=== PATIENT | male | born 1935 | race Caucasian/White ===

== ENCOUNTER → 2016-05-10 | Outpatient (CLI) | payer BC, OTHER ==
[~2016-05-10] MED LIST: ALPR0.5T72 PO; AMLO5TAB2 PO; ASP81TEC PO; ATEN25TA PO; ESCI20TA45 PO; GMFB600T PO; HYDR-3812 PO; METO25TA PO; NAPR500T3 PO; OMEP20TA7 PO; OXYB5TAB PO; PRD20T PO; TAMS0.4C98 PO; TRAZ-28 PO; VLS80C PO
--- OUTSIDE RECORDS SUMMARY | 2016-05-10 12:34 | XMS REPORT | Continuity of Care Document ---
Author Author [facility] Organization [facility] Address Unknown Phone Unavailable Care Team Providers Care Personnel Specialist Name Role Phone DAINA MYLES MD PCP Insurance Providers Payer Name Policy Number Subscriber Name Relationship [facility] [id number] Sanjiv Vicente 16 Self / Same As Patient Advance Directives Directive Response Recorded Date/Time Advance Directives Yes 11/11/15 6:35am Health Care Power of Lpn Cma Deyvi rangel 11/11/15 6:35am Organ Donor No [...] Type Severity Reaction Status Last Updated Penicillins ([id number]) Allergy Mild ITCHING Active 11/11/15 Aswdtqs-Dyw-Uak Reductase Inhibitors ([id number]) Allergy Unknown Active 01/22/11 Morphine Allergy Unknown Active 01/22/11 Immunizations No immunization records. Vital Signs Acute Vital Signs Vital Response Date/Time Temperature (Fahrenheit) 96.9 degrees F (97.6 - 99.5) 11/11/2015 10:10am Temperature (Calculated Celsius) 36.85304 degrees C (36.4 - 37.5) 11/11/2015 10:10am [...] 0.00 inches 11/11/2015 6:35am Height (Calculated Centimeters) 182.448314 cm 11/11/2015 6:35am Weight (Pounds) 163 pounds 11/11/2015 6:35am Weight (Ounces) 0.0 oz 11/11/2015 6:35am Weight (Calculated Grams) 33436.557 gm 11/11/2015 6:35am Weight (Calculated Kilograms) 73.940753 kilograms 11/11/2015 6:35am Calculated BMI 22.1 11/11/2015 6:35am Results No known relevant diagnostic tests, laboratory data and/or discharge summary. Procedures No known history of procedures. Encounters Encounter Location Arrival/Admit Date Discharge/Depart Date Attending Provider Departed [facility] 11/11/15 6:12am 10:20am HALINA DELUNA DPM Departed Clinic [facility] 11/03/15 5:37am 11/03/15 9: 26am HALINA DELUNA DPM Departed Clinic [facility] 10/28/15 7:41am 10/28/15 8: 55am CIARAN RUDD MD Departed Emergency Room [facility] 10/26/15 2:37pm 10/25 4:13pm RADHA GREEN MD
--- NOTE | 2016-05-10 14:02 | Diagnostic Imaging Report ---
EXAMINATION: 3 views of the right shoulder. INDICATION: Right shoulder pain. FINDINGS: There is no fracture, dislocation or radiopaque foreign body. There is a superior subluxation of the humeral head abutting the undersurface of the acromion with sclerotic changes compatible with chronicity. This is indicative of an underlying chronic high-grade rotator cuff tear. There is also uosw-tz-jtah appearance in the upper aspect of the glenohumeral joint compatible with degenerative changes. The acromioclavicular joint demonstrates mild degenerative changes and inferior osteophytes. 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 Dictated by: Dictated on workstation # [id number]
== END ==
LOC: RAD 12:31
PROVIDERS: ATTEND Family Medicine
DX: M25.511 Pain in right shoulder (principal)
CPT/HCPCS: 73030

== ENCOUNTER 2016-05-17 14:16 | Outpatient (RCR) | payer BC, OTHER ==
--- OUTSIDE RECORDS SUMMARY | 2016-03-30 14:29 | XMS REPORT | Continuity of Care Document ---
Author Author [facility] Organization [facility] Address Unknown Phone Unavailable Care Team Providers Care Wildlife Ecologist Name Role Phone DAINA MYLES MD PCP Insurance Providers Payer Name Policy Number Subscriber Name Relationship [facility] [id number] Sanjiv Vicente 16 Self / Same As Patient Advance Directives Directive Response Recorded Date/Time Advance Directives Yes 11/11/15 6:35am Health Care Power of Cryptographic Vulnerability Analyst Deyvi rangel 11/11/15 6:35am Organ Donor No 11/11/15 6:35am Resuscitation Status Full Code 11/11/15 6:35am Problems No problem information available. Medications Current Home Medications Medication Dose Units Route Directions Days/Qty Instructions Start Date Alprazolam 0.5 Mg 0.5 Mg Oral Twice A Day as needed for Anxiety 06/30 Aspirin 81 Mg 81 Mg Oral Bedtime 01/22/11 Hydrocodone/Acetaminophen 1 Each 1 Tab Oral Every 6 Hours as needed for Pain 10/26/15 Atenolol 25 Mg 25 Mg Oral Daily 11/03/15 Omeprazole 20 Mg 20 Mg Oral Twice A Day 11/03/15 Oxybutynin Chloride 5 Mg 5 Mg Oral Bedtime 11/03/15 Naproxen 500 Mg 500 Mg Oral Twice A Day 11/03/15 Trazodone Hcl 50 Mg 50 Mg Oral Bedtime 11/03/15 Escitalopram Oxalate 20 Mg 20 Mg Oral Bedtime 11/03/15 Tamsulosin Hcl 0.4 Mg 0.4 Mg Oral Bedtime 11/03/15 Past Home Medications Medication Directions Ordered Status Metoprolol Succinate (Toprol Xl) 25 Mg Tab.sr.24h, 25 Mg Oral Daily 01/22/11 Discontinued Valsartan 80 Mg Tablet, 80 Mg Oral Daily 01/23/11 Discontinued Gemfibrozil 600 Mg Tab, 600 Mg Oral Twice A Day 01/23/11 Discontinued Prednisone 20 Mg Tab, 20 Mg Oral Daily 10/26/15 Discontinued Social History Social History Problem Response Recorded Date/Time Alcohol Use Past History 11/11/2015 6:35am Recreational Drug Use No 11/11/2015 6:35am Recent Foreign Travel No 11/11/2015 6:35am Recent Infectious Disease Exposure No 11/11/2015 6:35am Smoking Status Never a Smoker 11/11/2015 6:35am Query Response Start Date Stop Date Smoking Status Never a Smoker Hospital Discharge Instructions Patient Instructions Physician Instructions New, Converted or Re-Newed RX: Call to Patients Pharmacy Patient Instructions 1. Follow up in office in 2 weeks. 2. Diet as tolerated. 3. Activity as tolerated. Activity as Tolerated: Yes Plan of Care Discharge Date 11/11/15 10:20am Instructions/Education Provided DR. DELUNA-POSTOP INSTRUCTIONS Prescriptions See Medication Section Functional Status No functional status results. Allergies, Adverse Reactions, Alerts Allergen Type Severity Reaction Status Last Updated Penicillins ([id number]) Allergy Mild ITCHING Active 11/11/15 Zpporvj-Mqy-Ysw Reductase Inhibitors ([id number]) Allergy Unknown Active 01/22/11 Morphine Allergy Unknown Active 01/22/11 Immunizations No immunization records. Vital Signs Acute Vital Signs Vital Response Date/Time Temperature (Fahrenheit) 96.9 degrees F (97.6 - 99.5) 11/11/2015 10:10am Temperature (Calculated Celsius) 36.98021 degrees C (36.4 - 37.5) 11/11/2015 10:10am Temperature Source Temporal 11/11/2015 10:10am Pulse Rate (adult) 47 bpm (60 - 90) 11/11/2015 10:10am Respiratory Rate 16 bpm (12 - 24) 11/11/2015 10:10am O2 Sat by Pulse Oximetry 100 % (88 - 100) 11/11/2015 10:10am Blood Pressure 146/73 mm Hg 11/11/2015 10:10am Blood Pressure Mean 105 mm Hg 11/11/2015 6:35am Pain Numeric Pain Scale 0-No Pain 11/11/2015 6:35am Pain Intensity 1 11/11/2015 10:10am Height (Feet) 6 feet 11/11/2015 6:35am Height (Inches) 0.00 inches 11/11/2015 6:35am Height (Calculated Centimeters) 182.042849 cm 11/11/2015 6:35am Weight (Pounds) 163 pounds 11/11/2015 6:35am Weight (Ounces) 0.0 oz 11/11/2015 6:35am Weight (Calculated Grams) 40272.557 gm 11/11/2015 6:35am Weight (Calculated Kilograms) 73.346931 kilograms 11/11/2015 6:35am Calculated BMI 22.1 11/11/2015 6:35am Results No known relevant diagnostic tests, laboratory data and/or discharge summary. Procedures No known history of procedures. Encounters Encounter Location Arrival/Admit Date Discharge/Depart Date Attending Provider Departed [facility] 11/11/15 6:12am 10:20am HALINA DELUNA DPM Departed Clinic [facility] 11/03/15 5:37am 11/03/15 9: 26am HALINA DELUNA DPM Departed Clinic [facility] 10/28/15 7:41am 10/28/15 8: 55am CIARAN RUDD MD Departed Emergency Room [facility] 10/26/15 2:37pm 10/25 4:13pm RADHA GREEN MD
== END 2016-05-30 14:09 | disposition home or self-care (01) ==
PROVIDERS: ATTEND Family Medicine
DX: M25.511 Pain in right shoulder (principal)

== ENCOUNTER → 2016-10-02 | Day surgery (SDC) | payer BC ==
[~2016-10-02] VITALS: Ht 182.9 cm; Wt 73.9 kg
[~2016-10-02] MED LIST changes: +LIDOCAINE 1% INJ 20 ML (XYLOCAINE) VIAL INJ ONE
[2016-10-02 11:16] VITALS: BP 145/88
--- NOTE | 2016-10-02 17:28 | OPERATIVE REPORT ---
DATE OF SERVICE: 10/02/2016 PREOPERATIVE DIAGNOSIS: Implantable loop recorder in the left pre-pectoral area. POSTOPERATIVE DIAGNOSIS: Implantable loop recorder removed from the left pre-pectoral area. PROCEDURE: Removal of implantable loop recorder. ESTIMATED BLOOD LOSS: Less than 5 mL. The patient is an 81-year-old gentleman who has had an implantable loop recorder that he is now requesting be removed. Informed consent was obtained. [facility] and the left pre-pectoral area was prepared and draped in the usual sterile fashion. We used 1% Lidocaine for local anesthesia. A small incision was made at the site of the implantation and sharp and blunt dissection was used to remove the device from the pocket and the wound was closed using Dermabond and Steri-Strips. He tolerated the procedure well. Job ID: [id number] DocumentID: [id number] Dictated Date: 10/02/2016 11:07:22 Pie Filling Mixer Date: 10/02/2016 17:27:00 Dictated By: RONALD OLIVEIRA MD, MA, FACP, FACC, MTDD
--- OUTSIDE RECORDS SUMMARY | 2016-10-09 13:05 | XMS REPORT ---
Author SHALINI Ayala [facility] [employer] Address Unknown Phone Unavailable Care Team Providers Care Telemarketing Fundraiser Name Role Phone SHALINI AYALA CP Unavailable Allergies, Adverse Reactions, Alerts Substance Reaction Event Type Statins Support Info Not Available Drug Allergy Penicillin G Sodium Info Not Available Drug Allergy Morphine Sulfate Info Not Available Drug Allergy Problems Problem Type Condition Code Onset Dates Condition Status Assessment Pain in right shoulder M25.511 Active Assessment Other chronic pain G89.29 Active Problem Other chronic pain G89.29 Active Medications Medication Code System Code Instructions Start Date End Date Status Dosage Naprosyn [facility] [address]-20 500 MG Orally every 12 hrs 1 tablet as needed Omeprazole [facility] [address]-24 20 MG Orally Once a day 2 capsules Nystatin [facility] [address]-06 190740 UNIT/GM Externally 4 times a day 1 application to affected area Trazodone HCl [facility] [address]-28 50 MG Orally Once a day 1 tablet at bedtime as needed [place] [facility] [address]-95 5-325 MG Orally every 6 hrs 1 tablet as needed Xanax [facility] [address]-52 0.5 MG Orally Three times a day 1 tablet PredniSONE [facility] [address]-45 20 mg Orally Once a day Mar 14, 2016 Mar 19, 2016 2 tablets lasix ND 0 Oral 1 tab Escitalopram Oxalate [facility] [address]-71 10 MG Orally Once a day 1 tablet Aspir-81 [facility] [address]-06 81 MG Orally Once a day 1 tablet Hydrocodone-Acetaminophen [facility] [address]-11 5-325 MG Orally every 6 hrs 1 tablet as needed [place] [facility] [address]-33 5-325 MG Orally every 6 hrs Mar 14, 2016 1 tablet as needed Nitro-Dur [facility] [address]-77 0.1 MG/HR Transdermal Once a day 1 patch to skin remove after 12 hours Oxybutynin Chloride [facility] [address]-80 5 MG Orally Twice a day 1 tablet Flomax [facility] [address]-47 0.4 MG Orally Once a day 1 capsule Procedures Procedure Coding System Code Date Office Visit, Est Pt., Level 3 CPT-4 45827 Mar 14, 2016 X-RAY EXAM OF SHOULDER CPT-4 41738 Mar 14, 2016 Vital Signs Date/Time: Mar 14, 2016 Cardiac Monitoring Heart Rate 70 bpm Weight 168 lbs Height 72 in BMI 22.78 Index Blood Pressure Diastolic 76 mmHg Blood Pressure Systolic 148 mmHg Results No Known Results Summary Purpose [employer]ClinicalWorks Submission
--- OUTSIDE RECORDS SUMMARY | 2016-10-09 13:06 | XMS REPORT | Continuity of Care Document ---
Author Author [facility] Organization [facility] Address Unknown Phone Unavailable Allergies Active Description Code Type Severity Reaction Onset Reported/Identified Relationship to Patient Clinical Status Yes morphine [id number] Drug Allergy Unknown N/A 01/22/2011 Yes Qzrugrc-Hyg-Xls Reductase Inhibitor [id number] Drug Allergy Unknown N/A 01/22/2011 Yes Penicillins [id number] Drug Allergy Mild ITCHING 11/11/2015 Medications Problems Date Dx Coded Attending Type Code Diagnosis Diagnosed By 01/23/2011 Ot 401.9 HYPERTENSION NOS 01/23/2011 Ot 414.01 CORONARY ATHEROSCLEROSIS OF [place] CORON 01/23/2011 Ot 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 01/23/2011 Ot 414.2 CHRONIC TOTAL OCCLUSION OF CORONARY [place] 01/23/2011 Ot 786.50 CHEST PAIN NOS 01/23/2011 Ot V45.81 AORTOCORONARY BYPASS 01/23/2011 Ot V58.66 LONG-TERM (CURRENT) USE OF ASPIRIN 01/23/2011 Ot V58.69 OTH MED,LT,CURRENT USE 11/01/2014 Ot 414.01 11/01/2014 Ot 401.9 11/01/2014 Ot 414.01 11/01/2014 Ot 401.9 12/09/2014 ASAEL RODRIGUEZ SORT WORKER Ot 719.41 12/09/2014 ASAEL RODRIGUEZ SORT WORKER Ot 721.3 12/09/2014 ASAEL RODRIGUEZ SORT WORKER Ot E000.8 12/09/2014 ASAEL RODRIGUEZ SORT WORKER Ot E888.9 12/09/2014 Ot 414.01 12/09/2014 Ot 401.9 12/09/2014 ASAEL RODRIGUEZ SORT WORKER Ot 719.41 12/09/2014 ASAEL RODRIGUEZ SORT WORKER Ot 721.3 12/09/2014 ASAEL RODRIGUEZ SORT WORKER Ot E000.8 12/09/2014 ASAEL RODRIGUEZ SORT WORKER Ot E888.9 01/12/2015 SHAMEKA CORTES, DAINA Garcia Ot 185 01/12/2015 SHAMEKA CORTES, DAINA A Ot 721.0 01/12/2015 SHAMEKA CORTES, DAINA A Ot 721.3 01/24/2015 Ot 414.01 01/24/2015 Ot 401.9 01/24/2015 ASAEL RODRIGUEZ SORT WORKER Ot 719.41 01/24/2015 ASAEL RODRIGUEZ SORT WORKER Ot 721.3 01/24/2015 ASAEL RODRIGUEZ SORT WORKER Ot E000.8 01/24/2015 ASAEL RODRIGUEZ SORT WORKER Ot E888.9 01/24/2015 SHAMEKA CORTES, DAINA Garcia Ot 185 01/24/2015 SHAMEKA CORTES, DAINA Garcia Ot 721.0 01/24/2015 SHAMEKA CORTES, DAINA Garcia Ot 721.3 01/24/2015 Ot 414.01 01/24/2015 Ot 401.9 01/24/2015 ASAEL RODRIGUEZ SORT WORKER Ot 719.41 01/24/2015 ASAEL RODRIGUEZ SORT WORKER Ot 721.3 01/24/2015 ASAEL RODRIGUEZ SORT WORKER Ot E000.8 01/24/2015 ASAEL RODRIGUEZ SORT WORKER Ot E888.9 01/24/2015 SHAMEKA CORTES, DAINA Garcia Ot 185 01/24/2015 SHAMEKA CORTES, DAINA Garcia Ot 721.0 01/24/2015 DAINA MYLES MD Ot 721.3 02/03/2015 Ot 414.01 02/03/2015 Ot 401.9 02/03/2015 ASAEL RODRIGUEZ SORT WORKER Ot 719.41 02/03/2015 ASAEL RODRIGUEZ SORT WORKER Ot 721.3 02/03/2015 ASAEL RODRIGUEZ SORT WORKER Ot E000.8 02/03/2015 ASAEL RODRIGUEZ SORT WORKER Ot E888.9 02/03/2015 SHAMEKA CORTES, DAINA Garcia Ot 185 02/03/2015 SHAMEKA CORTES, DAINA Garcia Ot 721.0 02/03/2015 DAINA MYLES MD Ot 721.3 02/03/2015 NWLEE RIOS NEWS GATHERING TECHNICIAN Ot I10 02/03/2015 NWLEE RIOS NEWS GATHERING TECHNICIAN Ot R07.9 02/10/2015 NWAGWU, ISIDORE O NEWS GATHERING TECHNICIAN Ot I10 02/10/2015 NWAGWU, ISIDORE O NEWS GATHERING TECHNICIAN Ot R07.9 02/16/2015 NWAGWU, ISIDORE O NEWS GATHERING TECHNICIAN Ot E16.2 02/16/2015 NWAGWU, ISIDORE O NEWS GATHERING TECHNICIAN Ot F32.9 02/16/2015 NWAGWU, ISIDORE O NEWS GATHERING TECHNICIAN Ot F41.9 02/16/2015 NWAGWU, ISIDORE O NEWS GATHERING TECHNICIAN Ot I10 02/16/2015 NWAGWU, ISIDORE O NEWS GATHERING TECHNICIAN Ot M48.00 02/16/2015 NWAGWU, ISIDORE O NEWS GATHERING TECHNICIAN Ot R07.9 03/03/2015 TEE CORTES FACC, ALI FACP CCDS Ot I10 03/03/2015 TEE CORTES FACC, ALI FACP CCDS Ot I25.10 03/03/2015 TEE CORTES FACC, ALI FACP CCDS Ot I65.23 03/03/2015 TEE CORTES FACC, ALI FACP CCDS Ot K91.1 03/03/2015 TEE CORTES FACC, ALI FACP CCDS Ot R55 03/04/2015 CIARAN RUDD MD Ot M47.816 SPONDYLOSIS W/O MYELOPATHY OR RADICULOPA 03/04/2015 CIARAN RUDD MD Ot M51.16 INTERVERTEBRAL DISC DISORDERS W RADICULO 03/04/2015 CIARAN RUDD MD Ot Z79.899 OTHER GUNNERY/ORDNANCE OFFICER (CURRENT) DRUG THERAPY 03/09/2015 TEE CORTES FACC, ALI FACP CCDS Ot I10 03/09/2015 TEE CORTES FACC, ALI FACP CCDS Ot I25.10 03/09/2015 TEE CORTES FACC, ALI FACP CCDS Ot I65.23 03/09/2015 TEE BRITTC, ALI FACP CCDS Ot K91.1 03/09/2015 TEE BRITTC, ALI FACP CCDS Ot R55 06/13/2015 CIARAN RUDD MD, Ot M51.16 INTERVERTEBRAL DISC DISORDERS W RADICULO 06/13/2015 CIARAN RUDD MD Ot Z79.899 OTHER GUNNERY/ORDNANCE OFFICER (CURRENT) DRUG THERAPY 06/16/2015 SHAMEKA CORTES, DAINA Garcia Ot I10 06/30/2015 TEE CORTES FACC, ALI FACP CCDS Ot I25.10 06/30/2015 TEE CORTES FACC, ALI FACP CCDS Ot I69.398 06/30/2015 TEE CORTES FACC, ALI FACP CCDS Ot N18.3 06/30/2015 TEE CORTES FACC, ALI FACP CCDS Ot R00.2 06/30/2015 TEE CORTES FACC, ALI FACP CCDS Ot R20.2 06/30/2015 TEE CORTES FACC, ALI FACP CCDS Ot R55 06/30/2015 TEE CORTES FACC, ALI FACP CCDS Ot Z79.899 06/30/2015 TEE CORTES FACC, ALI FACP CCDS Ot Z95.1 07/15/2015 SHAMEKA CORTES, DAINA Garcia Ot I10 07/15/2015 TEE CORTES FACC, ALI FACP CCDS Ot I25.10 07/15/2015 TEE CORTES FACC, ALI FACP CCDS Ot I69.398 07/15/2015 TEE CORTES FACC, ALI FACP CCDS Ot N18.3 07/15/2015 TEE CORTES FACC, ALI FACP CCDS Ot R00.2 07/15/2015 TEE CORTES FACC, ALI FACP CCDS Ot R20.2 07/15/2015 TEE CORTES FACC, ALI FACP CCDS Ot R55 07/15/2015 TEE CORTES FACC, ALI FACP CCDS Ot Z79.899 07/15/2015 TEE CORTES FACC, ALI FACP CCDS Ot Z95.1 07/15/2015 TEE CORTES FACC, ALI FACP CCDS Ot I25.10 07/15/2015 TEE CORTES FACC, ALI FACP CCDS Ot I69.398 07/15/2015 TEE CORTES FACC, ALI FACP CCDS Ot N18.3 07/15/2015 TEE CORTES FACC, ALI FACP CCDS Ot R00.2 07/15/2015 TEE CORTES FACC, ALI FACP CCDS Ot R20.2 07/15/2015 TEE CORTES FACC, ALI FACP CCDS Ot R55 07/15/2015 TEE CORTES FACC, ALI FACP CCDS Ot Z79.899 07/15/2015 TEE CORTES [facility], ALI FACP CCDS Ot Z95.1 07/22/2015 TEE CORTES [facility], ALI FACP CCDS Ot I25.10 07/22/2015 TEE CORTES [facility], ALI FACP CCDS Ot I69.398 07/22/2015 TEE CORTES [facility], ALI FACP CCDS Ot N18.3 07/22/2015 TEE CORTES [facility], ALI FACP CCDS Ot R00.2 07/22/2015 TEE CORTES [facility], ALI FACP CCDS Ot R20.2 07/22/2015 TEE CORTES [facility], ALI FACP CCDS Ot R55 07/22/2015 TEE CORTES [facility], ALI FACP CCDS Ot Z79.899 07/22/2015 TEE CORTES [facility], ALI FACP CCDS Ot Z95.1 07/29/2015 CIARAN RUDD MD Ot M47.816 SPONDYLOSIS W/O MYELOPATHY OR RADICULOPA 07/29/2015 CIARAN RUDD MD Ot M51.16 INTERVERTEBRAL DISC DISORDERS W RADICULO 07/29/2015 CIARAN RUDD MD Ot M53.3 SACROCOCCYGEAL DISORDERS, NOT ELSEWHERE 07/29/2015 CIARAN RUDD MD Ot Z79.899 OTHER NURSING HOME (CURRENT) DRUG THERAPY 07/29/2015 Ot 414.01 07/29/2015 Ot 401.9 07/29/2015 ASAEL RODRIGUEZ SORT WORKER Ot 719.41 07/29/2015 ASAEL RODRIGUEZ SORT WORKER Ot 721.3 07/29/2015 ASAEL RODRIGUEZ SORT WORKER Ot E000.8 07/29/2015 ASAEL RODRIGUEZ SORT WORKER Ot E888.9 07/29/2015 SHAMEKA CORTES, DAINA Garcia Ot 185 07/29/2015 SHAMEKA CORTES, DAINA Garcia Ot 721.0 07/29/2015 SHAMEKA CORTES, DAINA Garcia Ot 721.3 07/29/2015 NWAGWU ISIDORE O NEWS GATHERING TECHNICIAN Ot I10 07/29/2015 NWAGWU, ISIDORE O NEWS GATHERING TECHNICIAN Ot R07.9 07/29/2015 NWAGWEster, ISIDORE O NEWS GATHERING TECHNICIAN Ot E16.2 07/29/2015 NWAGWU, ISIDORE O NEWS GATHERING TECHNICIAN Ot F32.9 07/29/2015 NWAGWU, ISIDORE O NEWS GATHERING TECHNICIAN Ot F41.9 07/29/2015 NWAGWU, ISIDORE O NEWS GATHERING TECHNICIAN Ot I10 07/29/2015 NWAGWU, ISIDORE O NEWS GATHERING TECHNICIAN Ot M48.00 07/29/2015 NWAGWU, ISIDORE O NEWS GATHERING TECHNICIAN Ot R07.9 07/29/2015 TEE CORTES FAC, ALI FACP CCDS Ot I10 07/29/2015 TEE CORTES FACC, ALI FACP CCDS Ot I25.10 07/29/2015 TEE CORTES FACC, ALI FACP CCDS Ot I65.23 07/29/2015 TEE CORTES FAC, ALI FACP CCDS Ot K91.1 07/29/2015 TEE CORTES FAC, ALI FACP CCDS Ot R55 07/29/2015 TEE CORTES FAC, ALI FACP CCDS Ot I10 07/29/2015 TEE BRITT, ALI FACP CCDS Ot I25.10 07/29/2015 TEE CORTES [facility], ALI FACP CCDS Ot I65.23 07/29/2015 TEE CORTES [facility], ALI FACP CCDS Ot K91.1 07/29/2015 TEE BRITT, ALI FACP CCDS Ot R55 07/29/2015 DAINA MYLES MD Ot I10 07/29/2015 TEE BRITT, ALI FACP CCDS Ot I25.10 07/29/2015 TEE BRITTC, ALI FACP CCDS Ot I69.398 07/29/2015 TEE BRITT, ALI FACP CCDS Ot N18.3 07/29/2015 TEE CORTES [facility], ALI FACP CCDS Ot R00.2 07/29/2015 TEE CORTES [facility], ALI FACP CCDS Ot R20.2 07/29/2015 TEE BRITT, ALI FACP CCDS Ot R55 07/29/2015 TEE BRITT, ALI FACP CCDS Ot Z79.899 07/29/2015 TEE BRITTC, ALI FACP CCDS Ot Z95.1 07/29/2015 CIARAN RUDD MD Ot M47.816 07/29/2015 CIARAN RUDD MD Ot M48.06 07/29/2015 CIARAN RUDD MD Ot M51.16 07/29/2015 CIARAN RUDD MD Ot M53.3 07/29/2015 SHAMEKA CORTES, DAINA Garcia Ot I10 08/04/2015 TEE CORTES FAC, ALI FACP CCDS Ot I25.10 08/04/2015 TEE CORTES FACC, ALI FACP CCDS Ot I69.398 08/04/2015 TEE CORTES FACC, ALI FACP CCDS Ot N18.3 08/04/2015 TEE CORTES FACC, ALI FACP CCDS Ot R00.2 08/04/2015 TEE CORTES FACC, ALI FACP CCDS Ot R20.2 08/04/2015 TEE CORTES FACC, ALI FACP CCDS Ot R55 08/04/2015 TEE CORTES FAC, ALI FACP CCDS Ot Z79.899 08/04/2015 TEE CORTES FACC, ALI FACP CCDS Ot Z95.1 08/10/2015 CIARAN RUDD MD Ot M47.816 SPONDYLOSIS W/O MYELOPATHY OR RADICULOPA 08/10/2015 CIARAN RUDD MD Ot M48.06 SPINAL STENOSIS, LUMBAR REGION 08/10/2015 CIARAN RUDD MD Ot M51.16 INTERVERTEBRAL DISC DISORDERS W RADICULO 08/10/2015 CIARAN RUDD MD Ot M53.3 SACROCOCCYGEAL DISORDERS, NOT ELSEWHERE 08/17/2015 SHAMEKA CORTES, DAINA Garcia Ot I10 ESSENTIAL (PRIMARY) HYPERTENSION 08/25/2015 KARLOS ZHU MD Ot I71.4 ABDOMINAL AORTIC ANEURYSM, 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 08/25/2015 KARLOS ZHU MD Ot Z01.810 ENCOUNTER FOR PREPROCEDURAL CARDIOVASCUL 08/25/2015 KARLOS ZHU MD Ot Z01.811 ENCOUNTER FOR PREPROCEDURAL RESPIRATORY 08/25/2015 KARLOS ZHU MD Ot Z01.812 ENCOUNTER FOR PREPROCEDURAL LABORATORY E 09/20/2015 FIONA ASENCIO Ot I71.4 ABDOMINAL AORTIC ANEURYSM, 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 09/22/2015 FIONA ASENCIO Ot I71.4 ABDOMINAL AORTIC ANEURYSM, 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 09/30/2015 ASENCIO, FIONA M SORT WORKER Ot I71.4 ABDOMINAL AORTIC ANEURYSM, 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 10/03/2015 KARLOS ZHU MD Ot I71.4 ABDOMINAL AORTIC ANEURYSM, 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 10/03/2015 KARLOS ZHU MD Ot Z01.810 ENCOUNTER FOR PREPROCEDURAL CARDIOVASCUL 10/03/2015 KARLOS ZHU MD Ot Z01.811 ENCOUNTER FOR PREPROCEDURAL RESPIRATORY 10/03/2015 KARLOS ZHU MD Ot Z01.812 ENCOUNTER FOR PREPROCEDURAL LABORATORY E 10/03/2015 FIONA ASENCIO SORT WORKER Ot I71.4 ABDOMINAL AORTIC ANEURYSM, 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 10/03/2015 FIONA ASENCIO SORT WORKER Ot I71.4 ABDOMINAL AORTIC ANEURYSM, 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 10/05/2015 TOBIN CORTES, CIARAN Cummings Ot M47.816 SPONDYLOSIS W/O MYELOPATHY OR RADICULOPA 10/05/2015 CIARAN RUDD MD Ot M48.06 SPINAL STENOSIS, LUMBAR REGION 10/05/2015 CIARAN RUDD MD Ot M51.16 INTERVERTEBRAL DISC DISORDERS W RADICULO 10/05/2015 CIARAN RUDD MD Ot M53.3 SACROCOCCYGEAL DISORDERS, NOT ELSEWHERE 10/05/2015 FIONA ASENCIO SORT WORKER Ot I71.4 ABDOMINAL AORTIC ANEURYSM, 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 10/05/2015 KARLOS ZHU MD Ot I71.4 ABDOMINAL AORTIC ANEURYSM, 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 10/05/2015 KARLOS ZHU MD Ot Z01.810 ENCOUNTER FOR PREPROCEDURAL CARDIOVASCUL 10/05/2015 KARLOS ZHU MD Ot Z01.811 ENCOUNTER FOR PREPROCEDURAL RESPIRATORY 10/05/2015 KARLOS ZHU MD Ot Z01.812 ENCOUNTER FOR PREPROCEDURAL LABORATORY E 10/26/2015 RADHA GREEN MD Ot M48.06 SPINAL STENOSIS, LUMBAR REGION 10/26/2015 RADHA GREEN MD Ot M54.16 RADICULOPATHY, LUMBAR REGION 10/27/2015 KARLOS ZHU MD Ot I71.4 ABDOMINAL AORTIC ANEURYSM, 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 10/27/2015 KARLOS ZHU MD Ot Z01.810 ENCOUNTER FOR PREPROCEDURAL CARDIOVASCUL 10/27/2015 KARLOS ZHU MD, Ot Z01.811 ENCOUNTER FOR PREPROCEDURAL RESPIRATORY 10/27/2015 KARLOS ZHU MD Ot Z01.812 ENCOUNTER FOR PREPROCEDURAL LABORATORY E 10/27/2015 NORMA CORTES, RADHA Loyola Ot M48.06 SPINAL STENOSIS, LUMBAR REGION 10/27/2015 RADHA GREEN MD Ot M54.16 RADICULOPATHY, LUMBAR REGION 10/28/2015 CIARAN RUDD MD Ot M47.816 SPONDYLOSIS W/O MYELOPATHY OR RADICULOPA 10/28/2015 CIARAN RUDD MD Ot M51.16 INTERVERTEBRAL DISC DISORDERS W RADICULO 10/28/2015 CIARAN RUDD MD Ot M53.3 SACROCOCCYGEAL DISORDERS, NOT ELSEWHERE 11/03/2015 DELUNA DPM, HALINA P Ot M20.12 HALLUX VALGUS (ACQUIRED), LEFT FOOT 11/03/2015 DELUNA DPM, HALINA P Ot Z01.818 ENCOUNTER FOR OTHER PREPROCEDURAL EXAMIN 11/11/2015 DELUNA DPM, HALINA P Ot M20.12 HALLUX VALGUS (ACQUIRED), LEFT FOOT 11/14/2015 DELUNA DPM, HALINA P Ot M20.12 HALLUX VALGUS (ACQUIRED), LEFT FOOT 11/23/2015 CIARAN RUDD MD Ot M47.816 SPONDYLOSIS W/O MYELOPATHY OR RADICULOPA 11/23/2015 CIARAN RUDD MD Ot M51.16 INTERVERTEBRAL DISC DISORDERS W RADICULO 11/23/2015 CIARAN RUDD MD Ot M53.3 SACROCOCCYGEAL DISORDERS, NOT ELSEWHERE 03/20/2016 Ot 414.01 CORONARY ATHEROSCLEROSIS OF [place] CORON 03/20/2016 Ot 401.9 HYPERTENSION NOS 03/20/2016 ASAEL RODRIGUEZ SORT WORKER Ot 719.41 JOINT PAIN-SHLDER 03/20/2016 ASAEL RODRIGUEZ SORT WORKER Ot 721.3 LUMBOSACRAL SPONDYLOSIS 03/20/2016 ASAEL RODRIGUEZ SORT WORKER Ot E000.8 OTHER EXTERNAL CAUSE STATUS 03/20/2016 ASAEL RODRIGUEZ SORT WORKER Ot E888.9 FALL NOS 03/20/2016 DAINA MYLES MD Ot 185 MALIGN NEOPL PROSTATE 03/20/2016 DAINA MYLES MD Ot 721.0 CERVICAL SPONDYLOSIS 03/20/2016 SHAMEKA CORTES, DAINA Gacria Ot 721.3 LUMBOSACRAL SPONDYLOSIS 03/20/2016 NWAGWU, ISIDORE O NEWS GATHERING TECHNICIAN Ot I10 ESSENTIAL (PRIMARY) HYPERTENSION 03/20/2016 NWAGWU, ISIDORE O NEWS GATHERING TECHNICIAN Ot R07.9 CHEST PAIN, UNSPECIFIED 03/20/2016 NWAGWU, ISIDORE O NEWS GATHERING TECHNICIAN Ot E16.2 HYPOGLYCEMIA, UNSPECIFIED 03/20/2016 NWAGWU, ISIDORE O NEWS GATHERING TECHNICIAN Ot F32.9 MAJOR DEPRESSIVE DISORDER, SINGLE EPISOD 03/20/2016 NWAGWU, ISIDORE O NEWS GATHERING TECHNICIAN Ot F41.9 ANXIETY DISORDER, UNSPECIFIED 03/20/2016 NWAGWU, ISIDORE O NEWS GATHERING TECHNICIAN Ot I10 ESSENTIAL (PRIMARY) HYPERTENSION 03/20/2016 NWAGWU, ISIDORE O NEWS GATHERING TECHNICIAN Ot M48.00 SPINAL STENOSIS, SITE UNSPECIFIED 03/20/2016 NWAGWU, ISIDORE O NEWS GATHERING TECHNICIAN Ot R07.9 CHEST PAIN, UNSPECIFIED 03/20/2016 TEE CORTES FACC, RONALD FACP CCDS Ot I10 ESSENTIAL (PRIMARY) HYPERTENSION 03/20/2016 TEE CORTES FACC, ALI FACP CCDS Ot I25.10 ATHSCL HEART DISEASE OF [place] CORONARY 03/20/2016 TEE CORTES FACC, ALI FACP CCDS Ot I65.23 OCCLUSION AND STENOSIS OF [place] 03/20/2016 TEE CORTES FACC, ALI FACP CCDS Ot 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 03/20/2016 TEE CORTES FACC, RONALD FACP CCDS Ot R55 SYNCOPE AND COLLAPSE 03/20/2016 TEE CORTES FACC, ALI FACP CCDS Ot I10 ESSENTIAL (PRIMARY) HYPERTENSION 03/20/2016 TEE CORTES FACC, ALI FACP CCDS Ot I25.10 ATHSCL HEART DISEASE OF [place] CORONARY 03/20/2016 TEE CORTES FACC, ALI FACP CCDS Ot I65.23 OCCLUSION AND STENOSIS OF [place] 03/20/2016 TEE CORTES FACC, ALI FACP CCDS Ot 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 03/20/2016 TEE CORTES FACC, RONALD FACP CCDS Ot R55 SYNCOPE AND COLLAPSE 03/20/2016 DAINA MYLES MD Ot I10 ESSENTIAL (PRIMARY) HYPERTENSION 03/20/2016 TEE CORTES FACC, ALI FACP CCDS Ot I25.10 ATHSCL HEART DISEASE OF [place] CORONARY 03/20/2016 TEE CORTES FACC, ALI FACP CCDS Ot I69.398 OTHER SEQUELAE OF CEREBRAL INFARCTION 03/20/2016 TEE CORTES FACC, ALI FACP CCDS Ot N18.3 CHRONIC KIDNEY DISEASE, STAGE 3 ( MODERAT 03/20/2016 TEE CORTES FACC, RONALD FACP CCDS Ot R00.2 PALPITATIONS 03/20/2016 TEE CORTES FACC, ALI FACP CCDS Ot R20.2 PARESTHESIA OF SKIN 03/20/2016 RONALD OLIVEIRA MD, FACC FACP CCDS Ot R55 SYNCOPE AND COLLAPSE 03/20/2016 RONALD OLIVEIRA MD, FACC FACP CCDS Ot Z79.899 OTHER GUNNERY/ORDNANCE OFFICER (CURRENT) DRUG THERAPY 03/20/2016 RONALD OLIVEIRA MD, FACC FACP CCDS Ot Z95.1 PRESENCE OF AORTOCORONARY BYPASS GRAFT 03/20/2016 CIARAN RUDD MD Ot M47.816 SPONDYLOSIS W/O MYELOPATHY OR RADICULOPA 03/20/2016 CIARAN RUDD MD Ot M48.06 SPINAL STENOSIS, LUMBAR REGION 03/20/2016 CIARAN RUDD MD Ot M51.16 INTERVERTEBRAL DISC DISORDERS W RADICULO 03/20/2016 CIARAN RUDD MD Ot M53.3 SACROCOCCYGEAL DISORDERS, NOT ELSEWHERE 03/20/2016 KARLOS ZHU MD Ot I71.4 ABDOMINAL AORTIC ANEURYSM, 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 03/20/2016 KARLOS ZHU MD Ot Z01.810 ENCOUNTER FOR PREPROCEDURAL CARDIOVASCUL 03/20/2016 KARLOS ZHU MD Ot Z01.811 ENCOUNTER FOR PREPROCEDURAL RESPIRATORY 03/20/2016 KARLOS ZHU MD Ot Z01.812 ENCOUNTER FOR PREPROCEDURAL LABORATORY E 03/20/2016 FIONA ASENCIO Ot I71.4 ABDOMINAL AORTIC ANEURYSM, 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 03/27/2016 FIONA ASENCIO Ot I71.4 ABDOMINAL AORTIC ANEURYSM, 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 03/27/2016 FIONA ASENCIO Ot I71.4 ABDOMINAL AORTIC ANEURYSM, 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 03/28/2016 TEE CORTES FACC, ALI FACP CCDS Ot 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 03/28/2016 TEE CORTES FACC, ALI FACP CCDS Ot I25.10 ATHSCL HEART DISEASE OF [place] CORONARY 03/28/2016 TEE CORTES FACC, ALI FACP CCDS Ot I47.1 SUPRAVENTRICULAR TACHYCARDIA 03/28/2016 TEE CORTES FACC, ALI FACP CCDS Ot I65.23 OCCLUSION AND STENOSIS OF [place]AL [place] 03/28/2016 TEE CORTES FACC, ALI FACP CCDS Ot I70.213 ATHSCL [place] ARTERIES OF EXTRM W INTRMT 03/28/2016 TEE CORTES FACC, ALI FACP CCDS Ot I71.4 ABDOMINAL AORTIC ANEURYSM, 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 04/01/2016 FIONA ASENCIO SORT WORKER Ot I71.4 ABDOMINAL AORTIC ANEURYSM, 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 04/04/2016 TEE CORTES FACC, ALI FACP CCDS Ot 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 04/04/2016 TEE CORTES FACC, ALI FACP CCDS Ot I25.10 ATHSCL HEART DISEASE OF [place] CORONARY 04/04/2016 TEE CORTES FACC, ALI FACP CCDS Ot I47.1 SUPRAVENTRICULAR TACHYCARDIA 04/04/2016 TEE CORTES FACC, ALI FACP CCDS Ot I65.23 OCCLUSION AND STENOSIS OF [place]ILATERAL [place] 04/04/2016 TEE CORTES FACC, ALI FACP CCDS Ot I70.213 ATHSCL [place] ARTERIES OF EXTRM W INTRMT 04/04/2016 TEE CORTES FACC, ALI FACP CCDS Ot I71.4 ABDOMINAL AORTIC ANEURYSM, 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 04/04/2016 TEE BRITTC, ALI FACP CCDS Ot N18.3 CHRONIC KIDNEY DISEASE, STAGE 3 ( MODERAT 04/11/2016 FIONA ASENCIO SORT WORKER Ot I71.4 ABDOMINAL AORTIC ANEURYSM, 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 04/11/2016 TEE CORTES FACC, ALI FACP CCDS Ot 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 04/11/2016 TEE CORTES FACC, ALI FACP CCDS Ot I25.10 ATHSCL HEART DISEASE OF [place] CORONARY 04/11/2016 TEE CORTES FACC, ALI FACP CCDS Ot I47.1 SUPRAVENTRICULAR TACHYCARDIA 04/11/2016 TEE CORTES FACC, RONALD FACP CCDS Ot I65.23 OCCLUSION AND STENOSIS OF [place]ILATERAL [place] 04/11/2016 TEE CORTES FACC, ALI FACP CCDS Ot I70.213 ATHSCL [place] ARTERIES OF EXTRM W INTRMT 04/11/2016 TEE CORTES FACC, ALI FACP CCDS Ot I71.4 ABDOMINAL AORTIC ANEURYSM, 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 04/13/2016 DAINA MYLES MD Ot M25.511 PAIN IN RIGHT SHOULDER 04/18/2016 TEE CORTES FACC, ALI FACP CCDS Ot I25.10 ATHSCL HEART DISEASE OF [place] CORONARY 04/18/2016 TEE CORTES FACC, ALI FACP CCDS Ot I69.398 OTHER SEQUELAE OF CEREBRAL INFARCTION 04/18/2016 TEE CORTES FACC, ALI FACP CCDS Ot N18.3 CHRONIC KIDNEY DISEASE, STAGE 3 ( MODERAT 04/18/2016 TEE CORTES FACC, ALI FACP CCDS Ot R00.2 PALPITATIONS 04/18/2016 RONALD OLIVEIRA MD, FACC FACP CCDS Ot R20.2 PARESTHESIA OF SKIN 04/18/2016 TEE CORTES FACC, ALI FACP CCDS Ot R55 SYNCOPE AND COLLAPSE 04/18/2016 TEE CORTES FACC, ALI FACP CCDS Ot Z79.899 OTHER NURSING HOME (CURRENT) DRUG THERAPY 04/18/2016 TEE CORTES FACC, ALI FACP CCDS Ot Z95.1 PRESENCE OF AORTOCORONARY BYPASS GRAFT 04/18/2016 DAINA MYLES MD Ot M25.511 PAIN IN RIGHT SHOULDER 04/18/2016 TEE CORTES FACC, RONALD FACP CCDS Ot 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 04/18/2016 TEE CORTES FACC, ALI FACP CCDS Ot I25.10 ATHSCL HEART DISEASE OF [place] CORONARY 04/18/2016 TEE CORTES FACC, ALI FACP CCDS Ot I47.1 SUPRAVENTRICULAR TACHYCARDIA 04/18/2016 TEE CORTES FACC, ALI FACP CCDS Ot I65.23 OCCLUSION AND STENOSIS OF [place]ATERAL [place] 04/18/2016 TEE CORTES FACC, ALI FACP CCDS Ot I70.213 ATHSCL [place] ARTERIES OF EXTRM W INTRMT 04/18/2016 TEE CORTES FACC, ALI FACP CCDS Ot I71.4 ABDOMINAL AORTIC ANEURYSM, 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 04/18/2016 FIONA ASENCIO SORT WORKER Ot I71.4 ABDOMINAL AORTIC ANEURYSM, 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 04/18/2016 TEE CORTES FACC, ALI FACP CCDS Ot 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 04/18/2016 TEE CORTES FACC, ALI FACP CCDS Ot I25.10 ATHSCL HEART DISEASE OF [place] CORONARY 04/18/2016 TEE CORTES FACC, ALI FACP CCDS Ot I47.1 SUPRAVENTRICULAR TACHYCARDIA 04/18/2016 TEE CORTES FACC, ALI FACP CCDS Ot I65.23 OCCLUSION AND STENOSIS OF [place]ATERAL [place] 04/18/2016 TEE CORTES FACC, ALI FACP CCDS Ot I70.213 ATHSCL [place] ARTERIES OF EXTRM W INTRMT 04/18/2016 TEE CORTES FACC, ALI FACP CCDS Ot I71.4 ABDOMINAL AORTIC ANEURYSM, 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 04/18/2016 TEE CORTES FACC, ALI FACP CCDS Ot N18.3 CHRONIC KIDNEY DISEASE, STAGE 3 ( MODERAT 05/04/2016 TEE CORTES FACC, ALI FACP CCDS Ot 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 05/04/2016 TEE CORTES FACC, ALI FACP CCDS Ot I25.10 ATHSCL HEART DISEASE OF [place] CORONARY 05/04/2016 TEE CORTES FACC, ALI FACP CCDS Ot I47.1 SUPRAVENTRICULAR TACHYCARDIA 05/04/2016 TEE CORTES FACC, ALI FACP CCDS Ot I65.23 OCCLUSION AND STENOSIS OF [place] 05/04/2016 TEE CORTES FACC, ALI FACP CCDS Ot I70.213 ATHSCL [place] ARTERIES OF EXTRM W INTRMT 05/04/2016 TEE CORTES FACC, ALI FACP CCDS Ot I71.4 ABDOMINAL AORTIC ANEURYSM, 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 05/04/2016 TEE CORTES FACC, ALI FACP CCDS Ot N18.3 CHRONIC KIDNEY DISEASE, STAGE 3 ( MODERAT 05/04/2016 TEE CORTES FACC, ALI FACP CCDS Ot 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 05/04/2016 TEE CORTES FACC, ALI FACP CCDS Ot I25.10 ATHSCL HEART DISEASE OF [place] CORONARY 05/04/2016 TEE CORTES FACC, ALI FACP CCDS Ot I47.1 SUPRAVENTRICULAR TACHYCARDIA 05/04/2016 TEE CORTES FAC, RONALD FACP CCDS Ot I65.23 OCCLUSION AND STENOSIS OF [place] 05/04/2016 TEE CORTES FACC, RONALD FACP CCDS Ot I70.213 ATHSCL [place] ARTERIES OF EXTRM W INTRMT 05/04/2016 TEE CORTES FACYann, ALI FACP CCDS Ot I71.4 ABDOMINAL AORTIC ANEURYSM, 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 05/09/2016 SHAMEKA CORTES, DAINA Garcia Ot M25.511 PAIN IN RIGHT SHOULDER 05/11/2016 SHAMEKA CORTES, DAINA Garcia Ot M25.511 PAIN IN RIGHT SHOULDER 05/23/2016 SHAMEKA CORTES, DAINA Garcia Ot M25.511 PAIN IN RIGHT SHOULDER 05/30/2016 DAINA MYLES MD Ot M25.511 PAIN IN RIGHT SHOULDER 06/13/2016 Ot 414.01 CORONARY ATHEROSCLEROSIS OF [place] CORON 06/13/2016 Ot 401.9 HYPERTENSION NOS 06/13/2016 ASAEL RODRIGUEZ SORT WORKER Ot 719.41 JOINT PAIN-SHLDER 06/13/2016 ASAEL RODRIGUEZ SORT WORKER Ot 721.3 LUMBOSACRAL SPONDYLOSIS 06/13/2016 ASAEL RODRIGUEZ SORT WORKER Ot E000.8 OTHER EXTERNAL CAUSE STATUS 06/13/2016 ASAEL RODRIGUEZ SORT WORKER Ot E888.9 FALL NOS 06/13/2016 SHAMEKA CORTES, DAINA Garcia Ot 185 MALIGN NEOPL PROSTATE 06/13/2016 SHAMEKA CORTES, DAINA Garcia Ot 721.0 CERVICAL SPONDYLOSIS 06/13/2016 DAINA MYLES MD Ot 721.3 LUMBOSACRAL SPONDYLOSIS 06/13/2016 NWAGWU, ISIDORE O NEWS GATHERING TECHNICIAN Ot I10 ESSENTIAL (PRIMARY) HYPERTENSION 06/13/2016 NWAGWU, ISIDORE O NEWS GATHERING TECHNICIAN Ot R07.9 CHEST PAIN, UNSPECIFIED 06/13/2016 NWAGWU, ISIDORE O NEWS GATHERING TECHNICIAN Ot E16.2 HYPOGLYCEMIA, UNSPECIFIED 06/13/2016 NWAGWU, ISIDORE O NEWS GATHERING TECHNICIAN Ot F32.9 MAJOR DEPRESSIVE DISORDER, SINGLE EPISOD 06/13/2016 NWAGWU, ISIDORE O NEWS GATHERING TECHNICIAN Ot F41.9 ANXIETY DISORDER, UNSPECIFIED 06/13/2016 NWAGWU, ISIDORE O NEWS GATHERING TECHNICIAN Ot I10 ESSENTIAL (PRIMARY) HYPERTENSION 06/13/2016 LEE NEIL O NEWS GATHERING TECHNICIAN Ot M48.00 SPINAL STENOSIS, SITE UNSPECIFIED 06/13/2016 BIRDIGNACIOIbisLEE Norman O NEWS GATHERING TECHNICIAN Ot R07.9 CHEST PAIN, UNSPECIFIED 06/13/2016 TEE CORTES FACC, ALI FACP CCDS Ot I10 ESSENTIAL (PRIMARY) HYPERTENSION 06/13/2016 TEE CORTES FACC, ALI FACP CCDS Ot I25.10 ATHSCL HEART DISEASE OF [place] CORONARY 06/13/2016 TEE CORTES FACC, ALI FACP CCDS Ot I65.23 OCCLUSION AND STENOSIS OF [place] 06/13/2016 TEE CORTES FACC, ALI FACP CCDS Ot 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 06/13/2016 TEE CORTES FACC, ALI FACP CCDS Ot R55 SYNCOPE AND COLLAPSE 06/13/2016 TEE CORTES FACC, ALI FACP CCDS Ot I10 ESSENTIAL (PRIMARY) HYPERTENSION 06/13/2016 TEE CORTES FACC, ALI FACP CCDS Ot I25.10 ATHSCL HEART DISEASE OF [place] CORONARY 06/13/2016 TEE CORTES FACC, ALI FACP CCDS Ot I65.23 OCCLUSION AND STENOSIS OF BILATERAL [place] 06/13/2016 TEE CORTES FACC, ALI FACP CCDS Ot 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 06/13/2016 TEE CORTES FACC, ALI FACP CCDS Ot R55 SYNCOPE AND COLLAPSE 06/13/2016 SHAMEKA CORTES, DAINA Garcia Ot I10 ESSENTIAL (PRIMARY) HYPERTENSION 06/13/2016 TEE CORTES FACC, RONALD FACP CCDS Ot I25.10 ATHSCL HEART DISEASE OF [place] CORONARY 06/13/2016 TEE CORTES FACC, ALI FACP CCDS Ot I69.398 OTHER SEQUELAE OF CEREBRAL INFARCTION 06/13/2016 TEE CORTES FACC, ALI FACP CCDS Ot N18.3 CHRONIC KIDNEY DISEASE, STAGE 3 ( MODERAT 06/13/2016 TEE CORTES FACC ALI FACP CCDS Ot R00.2 PALPITATIONS 06/13/2016 TEE CORTES FACC, ALI FACP CCDS Ot R20.2 PARESTHESIA OF SKIN 06/13/2016 TEE CORTES FACC ALI FACP CCDS Ot R55 SYNCOPE AND COLLAPSE 06/13/2016 TEE CORTES FACC, ALI FACP CCDS Ot Z79.899 OTHER NURSING HOME (CURRENT) DRUG THERAPY 06/13/2016 TEE CORTES FACC, RONALD BRITTP CCDS Ot Z95.1 PRESENCE OF AORTOCORONARY BYPASS GRAFT 06/13/2016 CIARAN RUDD MD Ot M47.816 SPONDYLOSIS W/O MYELOPATHY OR RADICULOPA 06/13/2016 CIARAN RUDD MD Ot M48.06 SPINAL STENOSIS, LUMBAR REGION 06/13/2016 CIARAN RUDD MD Ot M51.16 INTERVERTEBRAL DISC DISORDERS W RADICULO 06/13/2016 CIARAN RUDD MD Ot M53.3 SACROCOCCYGEAL DISORDERS, NOT ELSEWHERE 06/13/2016 KARLOS ZHU MD Ot I71.4 ABDOMINAL AORTIC ANEURYSM, 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 06/13/2016 KARLOS ZHU MD Ot Z01.810 ENCOUNTER FOR PREPROCEDURAL CARDIOVASCUL 06/13/2016 KARLOS ZHU MD Ot Z01.811 ENCOUNTER FOR PREPROCEDURAL RESPIRATORY 06/13/2016 KARLOS ZHU MD Ot Z01.812 ENCOUNTER FOR PREPROCEDURAL LABORATORY E 06/13/2016 FIONA ASENCIO SORT WORKER Ot I71.4 ABDOMINAL AORTIC ANEURYSM, 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 06/13/2016 FIONA ASENCIO SORT WORKER Ot I71.4 ABDOMINAL AORTIC ANEURYSM, 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 06/13/2016 TEE CORTES FACC, RONALD BRITTP CCDS Ot 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 06/13/2016 RONALD OLIVEIRA MD, FACC FACP CCDS Ot I25.10 ATHSCL HEART DISEASE OF [place] CORONARY 06/13/2016 TEE CORTES FACC, RONALD FACP CCDS Ot I47.1 SUPRAVENTRICULAR TACHYCARDIA 06/13/2016 TEE CORTES FACC, RONALD FACP CCDS Ot I65.23 OCCLUSION AND STENOSIS OF [place] 06/13/2016 TEE CORTES FACC, RONALD FACP CCDS Ot I70.213 ATHSCL [place] ARTERIES OF EXTRM W INTRMT 06/13/2016 TEE CORTES FACC, RONALD BRITTP CCDS Ot I71.4 ABDOMINAL AORTIC ANEURYSM, 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 06/13/2016 TEE CORTES FACC, RONALD BRITTP CCDS Ot N18.3 CHRONIC KIDNEY DISEASE, STAGE 3 ( MODERAT 06/13/2016 TEE CORTES FACC, ALI FACP CCDS Ot 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 06/13/2016 TEE CORTES FACC, ALI FACP CCDS Ot I25.10 ATHSCL HEART DISEASE OF [place] CORONARY 06/13/2016 TEE CORTES FACC, ALI FACP CCDS Ot I47.1 SUPRAVENTRICULAR TACHYCARDIA 06/13/2016 TEE CORTES FACC, ALI FACP CCDS Ot I65.23 OCCLUSION AND STENOSIS OF [place] 06/13/2016 TEE CORTES FACC, ALI FACP CCDS Ot I70.213 ATHSCL [place] ARTERIES OF EXTRM W INTRMT 06/13/2016 TEE CORTES FACC, ALI FACP CCDS Ot I71.4 ABDOMINAL AORTIC ANEURYSM, 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 06/13/2016 SHAMEKA CORTES, DAINA Garcia Ot M25.511 PAIN IN RIGHT SHOULDER 06/22/2016 Ot 414.01 CORONARY ATHEROSCLEROSIS OF [place] CORON 06/22/2016 Ot 401.9 HYPERTENSION NOS 06/22/2016 ASAEL RODRIGUEZ SORT WORKER Ot 719.41 JOINT PAIN-SHLDER 06/22/2016 ASAEL RODRIGUEZ SORT WORKER Ot 721.3 LUMBOSACRAL SPONDYLOSIS 06/22/2016 ASAEL RODRIGUEZ SORT WORKER Ot E000.8 OTHER EXTERNAL CAUSE STATUS 06/22/2016 ASAEL RODRIGUEZ SORT WORKER Ot E888.9 FALL NOS 06/22/2016 DAINA MYLES MD Ot 185 MALIGN NEOPL PROSTATE 06/22/2016 DAINA MYLES MD Ot 721.0 CERVICAL SPONDYLOSIS 06/22/2016 DAINA MYLES MD Ot 721.3 LUMBOSACRAL SPONDYLOSIS 06/22/2016 NWAGWU, ISIDORE O NEWS GATHERING TECHNICIAN Ot I10 ESSENTIAL (PRIMARY) HYPERTENSION 06/22/2016 NWAGWU, ISIDORE O NEWS GATHERING TECHNICIAN Ot R07.9 CHEST PAIN, UNSPECIFIED 06/22/2016 NWAGWU, ISIDORE O NEWS GATHERING TECHNICIAN Ot E16.2 HYPOGLYCEMIA, UNSPECIFIED 06/22/2016 NWAGWU, ISIDORE O NEWS GATHERING TECHNICIAN Ot F32.9 MAJOR DEPRESSIVE DISORDER, SINGLE EPISOD 06/22/2016 NWAGWU, ISIDORE O NEWS GATHERING TECHNICIAN Ot F41.9 ANXIETY DISORDER, UNSPECIFIED 06/22/2016 NWAGWU, ISIDORE O NEWS GATHERING TECHNICIAN Ot I10 ESSENTIAL (PRIMARY) HYPERTENSION 06/22/2016 NWAGWU, JULIANADORE O NEWS GATHERING TECHNICIAN Ot M48.00 SPINAL STENOSIS, SITE UNSPECIFIED 06/22/2016 NWAGWU, JULIANADORE O NEWS GATHERING TECHNICIAN Ot R07.9 CHEST PAIN, UNSPECIFIED 06/22/2016 TEE CORTES FACC, ALI FACP CCDS Ot I10 ESSENTIAL (PRIMARY) HYPERTENSION 06/22/2016 TEE CORTES FACC, ALI FACP CCDS Ot I25.10 ATHSCL HEART DISEASE OF [place] CORONARY 06/22/2016 TEE CORTES FACC, ALI FACP CCDS Ot I65.23 OCCLUSION AND STENOSIS OF [place] 06/22/2016 TEE CORTES FACC, ALI FACP CCDS Ot 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 06/22/2016 TEE CORTES FACC, ALI FACP CCDS Ot R55 SYNCOPE AND COLLAPSE 06/22/2016 TEE CORTES FACC, ALI FACP CCDS Ot I10 ESSENTIAL (PRIMARY) HYPERTENSION 06/22/2016 TEE CORTES FACC, ALI FACP CCDS Ot I25.10 ATHSCL HEART DISEASE OF [place] CORONARY 06/22/2016 TEE CORTES FACC, ALI FACP CCDS Ot I65.23 OCCLUSION AND STENOSIS OF [place] 06/22/2016 TEE CORTES FACC, ALI FACP CCDS Ot 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 06/22/2016 TEE CORTES FACC, ALI FACP CCDS Ot R55 SYNCOPE AND COLLAPSE 06/22/2016 DAINA MYLES MD Ot I10 ESSENTIAL (PRIMARY) HYPERTENSION 06/22/2016 TEE CORTES FACC, RONALD FACP CCDS Ot I25.10 ATHSCL HEART DISEASE OF [place] CORONARY 06/22/2016 TEE CORTES FACC, ALI FACP CCDS Ot I69.398 OTHER SEQUELAE OF CEREBRAL INFARCTION 06/22/2016 TEE CORTES FACC, ALI FACP CCDS Ot N18.3 CHRONIC KIDNEY DISEASE, STAGE 3 ( MODERAT 06/22/2016 TEE CORTES FACC, ALI FACP CCDS Ot R00.2 PALPITATIONS 06/22/2016 TEE CORTES FACC, ALI FACP CCDS Ot R20.2 PARESTHESIA OF SKIN 06/22/2016 TEE CORTES FACC, ALI FACP CCDS Ot R55 SYNCOPE AND COLLAPSE 06/22/2016 TEE CORTES FACC, RONALD BRITTP CCDS Ot Z79.899 OTHER GUNNERY/ORDNANCE OFFICER (CURRENT) DRUG THERAPY 06/22/2016 TEE CORTES FACC, RONALD FACP CCDS Ot Z95.1 PRESENCE OF AORTOCORONARY BYPASS GRAFT 06/22/2016 CIARAN RUDD MD Ot M47.816 SPONDYLOSIS W/O MYELOPATHY OR RADICULOPA 06/22/2016 CIARAN RUDD MD Ot M48.06 SPINAL STENOSIS, LUMBAR REGION 06/22/2016 CIARAN RUDD MD Ot M51.16 INTERVERTEBRAL DISC DISORDERS W RADICULO 06/22/2016 CIARAN RUDD MD Ot M53.3 SACROCOCCYGEAL DISORDERS, NOT ELSEWHERE 06/22/2016 KARLOS ZHU MD Ot I71.4 ABDOMINAL AORTIC ANEURYSM, 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 06/22/2016 KARLOS ZHU MD Ot Z01.810 ENCOUNTER FOR PREPROCEDURAL CARDIOVASCUL 06/22/2016 KARLOS ZHU MD Ot Z01.811 ENCOUNTER FOR PREPROCEDURAL RESPIRATORY 06/22/2016 KARLOS ZHU MD Ot Z01.812 ENCOUNTER FOR PREPROCEDURAL LABORATORY E 06/22/2016 FIONA ASENCIO SORT WORKER Ot I71.4 ABDOMINAL AORTIC ANEURYSM, 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 06/22/2016 FIONA ASENCIOP Ot I71.4 ABDOMINAL AORTIC ANEURYSM, 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 06/22/2016 TEE CORTES FACC, RONALD BRITTP CCDS Ot 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 06/22/2016 RONALD OLIVEIRA MD, FACC FACP CCDS Ot I25.10 ATHSCL HEART DISEASE OF [place] CORONARY 06/22/2016 TEE CORTES FACC, RONALD FACP CCDS Ot I47.1 SUPRAVENTRICULAR TACHYCARDIA 06/22/2016 TEE CORTES FACC, RONALD BRITTP CCDS Ot I65.23 OCCLUSION AND STENOSIS OF [place] 06/22/2016 TEE CORTES FACC, RONALD FACP CCDS Ot I70.213 ATHSCL [place] ARTERIES OF EXTRM W INTRMT 06/22/2016 TEE CORTES FACC, RONALD FACP CCDS Ot I71.4 ABDOMINAL AORTIC ANEURYSM, 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 06/22/2016 RONALD OLIVEIRA MD, FACC FACP CCDS Ot N18.3 CHRONIC KIDNEY DISEASE, STAGE 3 ( MODERAT 06/22/2016 TEE CORTES FACC, ALI FACP CCDS Ot 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 06/22/2016 TEE CORTES FACC, ALI FACP CCDS Ot I25.10 ATHSCL HEART DISEASE OF [place] CORONARY 06/22/2016 TEE CORTES FACC, ALI FACP CCDS Ot I47.1 SUPRAVENTRICULAR TACHYCARDIA 06/22/2016 TEE CORTES FACC, ALI FACP CCDS Ot I65.23 OCCLUSION AND STENOSIS OF [place] 06/22/2016 TEE CORTES FACC, ALI FACP CCDS Ot I70.213 ATHSCL [place] ARTERIES OF EXTRM W INTRMT 06/22/2016 TEE CORTES FACC, ALI FACP CCDS Ot I71.4 ABDOMINAL AORTIC ANEURYSM, 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 06/22/2016 SHAMEKA CORTES, DAINA Garcia Ot M25.511 PAIN IN RIGHT SHOULDER 08/09/2016 TEE CORTES FACC, ALI FACP CCDS Ot I25.10 ATHSCL HEART DISEASE OF [place] CORONARY 08/09/2016 TEE CORTES FACC, ALI FACP CCDS Ot I69.398 OTHER SEQUELAE OF CEREBRAL INFARCTION 08/09/2016 TEE CORTES FACC, ALI FACP CCDS Ot N18.3 CHRONIC KIDNEY DISEASE, STAGE 3 ( MODERAT 08/09/2016 TEE CORTES FACC, ALI FACP CCDS Ot R00.2 PALPITATIONS 08/09/2016 TEE CORTES FACC, ALI FACP CCDS Ot R20.2 PARESTHESIA OF SKIN 08/09/2016 TEE CORTES FACC, ALI FACP CCDS Ot R55 SYNCOPE AND COLLAPSE 08/09/2016 TEE CORTES FACC, ALI FACP CCDS Ot Z79.899 OTHER GUNNERY/ORDNANCE OFFICER (CURRENT) DRUG THERAPY 08/09/2016 TEE CORTES FACC, ALI FACP CCDS Ot Z95.1 PRESENCE OF AORTOCORONARY BYPASS GRAFT 08/14/2016 TEE CORTES FACC, ALI FACP CCDS Ot I25.10 ATHSCL HEART DISEASE OF [place] CORONARY 08/14/2016 TEE CORTES FACC, ALI FACP CCDS Ot I69.398 OTHER SEQUELAE OF CEREBRAL INFARCTION 08/14/2016 TEE CORTES FACC, ALI FACP CCDS Ot N18.3 CHRONIC KIDNEY DISEASE, STAGE 3 ( MODERAT 08/14/2016 TEE CORTES FACC, [facility]D [facility] CCDS Ot R00.2 PALPITATIONS 08/14/2016 TEE CORTES FACC, RONALD [facility] CCDS Ot R20.2 PARESTHESIA OF SKIN 08/14/2016 TEE CORTES FACC, RONALD FACP CCDS Ot R55 SYNCOPE AND COLLAPSE 08/14/2016 TEE CORTES FACC, RONALD [facility] CCDS Ot Z79.899 OTHER NURSING HOME (CURRENT) DRUG THERAPY 08/14/2016 TEE CORTES FACC, RONALD [facility] CCDS Ot Z95.1 PRESENCE OF AORTOCORONARY BYPASS GRAFT 08/20/2016 SHAMEKA CORTES, DAINA Garcia Ot M25.511 PAIN IN RIGHT SHOULDER Procedures Results Encounters ACCT No. Visit Date/Time Discharge Status Pt. Type Provider Facility Loc./Unit Complaint [id number] 11/11/2015 06:12:00 2015 10:20:00 DIS Outpatient HALINA DELUNA DPM [facility] SDC [place] DEFORMITY [id number] 11/03/2015 05:37:00 2015 09:26:00 DIS Outpatient HALINA DELUNA DPM [facility] PREOP [place] DEFORMITY [id number] 10/28/2015 07:41:00 2015 08:55:00 DIS Outpatient CIARAN RUDD MD [facility] CARD DISC DISORDER, SACROCOCCYGEAL DISORDER [id number] 10/26/2015 14:37:00 2015 16:13:00 DIS Emergency RADHA GREEN MD [facility] ER BACK/LEFT HIP/LEG PAIN [id number] 07/29/2015 07:43:00 2015 08:54:00 DIS Outpatient CIARAN RUDD MD [facility] CARD DISC DISORDER W/RADICULOPATHY, SACROCOCCYGEAL DISOR [id number] 06/13/2015 12:11:00 2015 13:12:00 DIS Outpatient CAIRAN RDUD MD [facility] CARD DISC DISORDER W/RADICULOPATHY [id number] 03/04/2015 06:49:00 2014 07:41:00 DIS Outpatient CIARAN RUDD MD [facility] CARD DISC DISORDER W/RADICULOPATHY [id number] 02/24/2015 14:26:00 2014 23:59:59 CLS Outpatient TEE CORTES FACC, RONALD KAMINSKI CCDS [facility] CARD HTN,CAD,SYNCOPE [id number] 02/14/2015 10:07:00 2014 23:59:59 CLS Outpatient TEE CORTES FACC, RONALD KAMINSKI CCDS [facility] LAB HTN,CAD,CAROTID ARTERY STENOSIS,DUMPING SYNDROME [id number] 02/03/2015 07:19:00 2014 23:59:59 CLS Outpatient NWAGWU, ISIDORE O NEWS GATHERING TECHNICIAN [facility] CARD CHEST PAIN, HTN, HYUOPGLYCEMIA, ANXIETY [id number] 01/24/2015 08:44:00 2014 23:59:59 CLS Outpatient NWAGWU, ISIDORE O NEWS GATHERING TECHNICIAN [facility] CARD CP, HTN, ANXIETY [id number] 12/31/2014 15:05:00 2014 23:59:59 CLS Outpatient DAINA MYLES MD [facility] RAD CERVICAL RADICULOPATHY BACK PAIN TIA [id number] 11/19/2014 14:40:00 2014 23:59:59 CLS Outpatient ASAEL RODRIGUEZ [facility] RAD R SHOULDER PAIN,LOWER BACK PAIN [id number] 10/02/2016 09:38:00 ACT Outpatient RONALD OLIVEIRA MD, FACC, FACP CCDS [facility] CATH PALPITATIONS,PAROXYSMAL ATRIAL FLUTTER,HTN [id number] 05/17/2016 14:18:00 ACT Outpatient DAINA MYLES MD [facility] REHAB POSSIBLE ROTATOR CUFF TEAR R SHOULDER [id number] 05/10/2016 12:31:00 ACT Outpatient DAINA MYLES MD [facility] RAD R SHOULDER PAIN [id number] 03/27/2016 12:20:00 ACT Outpatient RONALD OLIVEIRA MD, FACC, FACP CCDS [facility] RAD CAD [id number] 03/26/2016 08:35:00 ACT Outpatient FIONA ASENCIO SORT WORKER [facility] RAD AAA [id number] 03/20/2016 07:43:00 ACT Outpatient TEE CORTES FACC, RONALD KAMINSKI CCDS [facility] CARD CAD,OSCAR,SVT,DM [id number] 09/16/2015 10:16:00 ACT Outpatient FIONA ASENCIO SORT WORKER [facility] RAD AAA [id number] 08/10/2015 09:50:00 ACT Outpatient KARLOS ZHU MD [facility] LAB ABDOMINAL AORTIC ANEURYSM [id number] 07/25/2015 13:19:00 ACT Outpatient TOBIN CORTES, CIARAN Cummings [facility] RAD LBP [id number] 06/21/2015 08:41:00 ACT Outpatient TEE CORTES FACC, RONALD KAMINSKI CCDS [facility] CATH PALPATATIONS, SYNCOPE [id number] 05/28/2015 08:45:00 ACT Outpatient DAINA MYLES MD [facility] LAB HTN [id number] 02/28/2011 08:47:00 Document Registration [id number] 02/01/2011 08:38:00 Document Registration [id number] 01/22/2011 11:47:00 Document Registration
== END ==
LOC: CATH 09:38
PROVIDERS: ATTEND Internal Medicine Cardiovascular Disease
DX: R00.2 Palpitations (principal); I48.3 Typical atrial flutter; I25.10 Atherosclerotic heart disease of native coronary artery without angina pectoris; E11.22 Type 2 diabetes mellitus with diabetic chronic kidney disease; N18.3 Chronic kidney disease, stage 3 (moderate); I12.9 Hypertensive chronic kidney disease with stage 1 through stage 4 chronic kidney disease, or unspecified chronic kidney disease; Z79.899 Other long term (current) drug therapy; Z95.1 Presence of aortocoronary bypass graft
CPT/HCPCS: 33284

== ENCOUNTER → 2016-12-27 | Outpatient (CLI) | payer BC ==
[~2016-12-27] MED LIST changes: -LIDOCAINE 1% INJ 20 ML (XYLOCAINE) VIAL INJ ONE
--- NOTE | 2016-12-27 16:12 | Diagnostic Imaging Report ---
PROCEDURE: MRI lumbar spine. TECHNIQUE: Multiplanar, multisequence MRI of the lumbar spine was performed without contrast. INDICATION: Chronic back pain, bilateral lower extremity pain. 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 The L2-L3 level is the most severely affected as there was mild trefoil stenosis at this level as well as narrowing of the neuroforamen bilaterally. On this study, the degenerative disc, ligamentous and bony disease at the L2-L3 level seen previously is again evident and does not appear to have progressed significantly. There is still narrowing of the neuroforamen bilaterally at this level as well, particularly on the right. The disc bulge centrally at the L4-L5 level is perhaps somewhat greater than on the prior exam. The disc indents the ventral aspect of the thecal sac and narrows the AP diameter to 10.3 mm. On the prior exam, the AP diameter of the thecal sac at this level was 11 mm. There is still narrowing of the neuroforamen bilaterally at this level, particularly on the left. The remainder of the lumbar spine is unchanged when compared to the prior study. No new area of spinal stenosis or nerve root encroachment has developed. There is no abnormal signal arising from the cord or the vertebral bodies to indicate an acute abnormality. There is no sign of a paraspinal mass. The previous exam did suggest a 3.0 x 4.2 cm infrarenal aneurysm of the abdominal aorta. The abdominal ultrasound exam performed on 09/16/15, however, failed to show any sign of an aneurysm of the aorta. 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 IMPRESSION: 1. The degenerative disc, ligamentous and bony disease involving the lumbar spine noted on the prior exam has not progressed significantly since the prior study. There is no new area of spinal stenosis or nerve root encroachment identified. 2. There is no sign of an acute bony abnormality or of a cord lesion. 3. The ectatic infrarenal abdominal aorta seen previously is again evident and no different. Dictated by: Dictated on workstation # [id number]
== END ==
LOC: RAD 15:03
PROVIDERS: ATTEND Orthopaedic Surgery
DX: M51.36 Other intervertebral disc degeneration, lumbar region (principal); M47.816 Spondylosis without myelopathy or radiculopathy, lumbar region; I77.811 Abdominal aortic ectasia
CPT/HCPCS: 72148

== ENCOUNTER 2017-01-18 13:30 | Outpatient (RCR) | payer BC | END 2017-01-19 | disposition home or self-care (01) | PROVIDERS: ATTEND Physician Assistant | DX: M47.896 Other spondylosis, lumbar region (principal) ==

== ENCOUNTER 2017-03-20 13:44 | Outpatient (RCR) | payer BC ==
[~2017-03-20 13:44] MED LIST changes: -NAPR500T3 PO; +NAPR500T4 PO
== END 2017-03-20 15:01 | disposition home or self-care (01) ==
PROVIDERS: ATTEND Physician Assistant
DX: M47.896 Other spondylosis, lumbar region (principal)

== ENCOUNTER → 2017-03-26 | Outpatient (CLI) | payer BC ==
--- NOTE | 2017-03-26 11:00 | Diagnostic Imaging Report ---
EXAMINATION: Ultrasound of the abdominal aorta. INDICATION: Ectatic aorta. FINDINGS: The proximal and mid segments of the abdominal aorta are obscured. The distal abdominal aorta is 2.6 cm in caliber. The right common iliac artery is 0.9 cm in caliber and the left iliac artery is obscured. IMPRESSION: Mildly ectatic distal abdominal aorta measuring up to 2.6 cm in caliber. This is similar to measurements from 03/26/2016. Dictated by: Dictated on workstation # [id number]
== END ==
LOC: RAD 07:54
PROVIDERS: ATTEND Nurse Practitioner
DX: I71.4 Abdominal aortic aneurysm, without rupture (principal)
CPT/HCPCS: 76775

== ENCOUNTER 2017-04-03 19:50 | Emergency (ER) | payer BC ==
[~2017-04-03] VITALS: Ht 182.9 cm; Wt 68.0 kg
--- OUTSIDE RECORDS SUMMARY | 2017-04-03 19:58 | XMS REPORT | Continuity of Care Document ---
Author Author [facility] Organization [facility] Address Unknown Phone Unavailable Allergies Active Description Code Type Severity Reaction Onset Reported/Identified Relationship to Patient Clinical Status Yes morphine [id number] Drug Allergy Unknown N/A 01/22/2011 Yes Ywhmhng-Agj-Zpm Reductase Inhibitor [id number] Drug Allergy Unknown N/A 01/22/2011 Yes Penicillins [id number] Drug Allergy Mild ITCHING 11/11/2015 Medications Problems Date Dx Coded Attending Type Code Diagnosis Diagnosed By 03/21/1500 REYES TALAMANTES Ot M47.896 OTHER SPONDYLOSIS, LUMBAR REGION 01/23/2011 Ot 401.9 HYPERTENSION NOS 01/23/2011 Ot 414.[address] 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9 12/09/2014 ASAEL RODRIGUEZ DECORATING SUPERVISOR Ot 719.41 12/09/2014 ASAEL RODRIGUEZ [facility] Ot 721.3 12/09/2014 ASAEL RODRIGUEZ DECORATING SUPERVISOR Ot E000.8 12/09/2014 JENNIFERASAEL DECORATING SUPERVISOR Ot E888.9 01/12/2015 SHAMEKA CORTES, DAINA A Ot 185 01/12/2015 SHAMEKA CORTES, DAINA A Ot 721.0 01/12/2015 SHAMEKA CORTES, DAINA A Ot 721.3 01/24/2015 Ot 414.01 01/24/2015 Ot 401.9 01/24/2015 ASAEL RODRIGUEZ DECORATING SUPERVISOR Ot 719.41 01/24/2015 JENNIFER ASAEL M DECORATING SUPERVISOR Ot 721.3 01/24/2015 JENNIFER ASAEL De La Cruz DECORATING SUPERVISOR Ot E000.8 01/24/2015 JENNIFER ASAEL Dorothy DECORATING SUPERVISOR Ot E888.9 01/24/2015 SHAMEKA CORTES, DAINA A Ot 185 01/24/2015 SHAMEKA CORTES, DAINA A Ot 721.0 01/24/2015 SHAMEKA CORTES, DAINA A Ot 721.3 01/24/2015 Ot 414.01 01/24/2015 Ot 401.9 01/24/2015 ASAEL RODRIGUEZ DECORATING SUPERVISOR Ot 719.41 01/24/2015 DEAN RODRIGUEZHANSMITH De La Cruz DECORATING SUPERVISOR Ot 721.3 01/24/2015 JENNIFER ASAEL Dorothy DECORATING SUPERVISOR Ot E000.8 01/24/2015 JENNIFER ASAEL Dorohty DECORATING SUPERVISOR Ot E888.9 01/24/2015 SHAMEKA CORTES, DAINA A Ot 185 01/24/2015 SHAMEKA CORTES, DAINA A Ot 721.0 01/24/2015 SHAMEKA CORTES, DAINA A Ot 721.3 02/03/2015 Ot 414.01 02/03/2015 Ot 401.9 02/03/2015 JENNIFER ASAEL M DECORATING SUPERVISOR Ot 719.41 02/03/2015 ASAEL RODRIGUEZ DECORATING SUPERVISOR Ot 721.3 02/03/2015 ASAEL RODRIGUEZ DECORATING SUPERVISOR Ot E000.8 02/03/2015 ASAEL RODRIGUEZ DECORATING SUPERVISOR Ot E888.9 02/03/2015 SHAMEKA CORTES, DAINA A Ot 185 02/03/2015 SHAMEKA CORTES, DAINA A Ot 721.0 02/03/2015 SHAMEKA CORTES, DAINA A Ot 721.3 02/03/2015 LEE NEIL APRN Ot I10 02/03/2015 NWAGWU, ISIDORE O MUSEUM SPECIALIST Ot R07.9 02/10/2015 NWAGWU, ISIDORE O MUSEUM SPECIALIST Ot I10 02/10/2015 NWAGWU, ISIDORE O MUSEUM SPECIALIST Ot R07.9 02/16/2015 NWAGWU, ISIDORE O MUSEUM SPECIALIST Ot E16.2 02/16/2015 NWAGWU, ISIDORE O MUSEUM SPECIALIST Ot F32.9 02/16/2015 NWAGWU, ISIDORE O MUSEUM SPECIALIST Ot F41.9 02/16/2015 NWAGWU, ISIDORE O MUSEUM SPECIALIST Ot I10 02/16/2015 NWAGWU, ISIDORE O MUSEUM SPECIALIST Ot M48.00 02/16/2015 NWAGWU, ISIDORE O MUSEUM SPECIALIST Ot R07.9 03/03/2015 TEE CORTES FACC, ALI FACP CCDS Ot I10 03/03/2015 TEE CORTES FACC, ALI FACP CCDS Ot I25.10 03/03/2015 TEE CORTES FACC, ALI FACP CCDS Ot I65.23 03/03/2015 TEE CORTES FACC, ALI FACP CCDS Ot K91.1 03/03/2015 TEE CORTES FACC, ALI FACP CCDS Ot R55 03/04/2015 CIARAN RUDD MD Ot M47.816 SPONDYLOSIS W/O MYELOPATHY OR RADICULOPA 03/04/2015 CIARAN RUDD MD, Ot M51.16 INTERVERTEBRAL DISC DISORDERS W RADICULO 03/04/2015 CIARAN RUDD MD Ot Z79.899 OTHER VARNISHING UNIT OPERATOR (CURRENT) DRUG THERAPY 03/09/2015 TEE CORTES FACC, ALI FACP CCDS Ot I10 03/09/2015 TEE CORTES FACC, ALI FACP CCDS Ot I25.10 03/09/2015 TEE CORTES FACC, ALI FACP CCDS Ot I65.23 03/09/2015 TEE CORTES FACC, ALI FACP CCDS Ot K91.1 03/09/2015 TEE CORTES FACC, ALI FACP CCDS Ot R55 06/13/2015 CIARAN RUDD MD, Ot M51.16 INTERVERTEBRAL DISC DISORDERS W RADICULO 06/13/2015 CIARAN RUDD MD Ot Z79.899 OTHER VARNISHING UNIT OPERATOR (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) DRUG THERAPY 06/16/2015 SHAMEKA CORTES, DAINA [...] FACP CCDS Ot R55 07/15/2015 TEE CORTES [facility], ALI FACP CCDS Ot Z79.899 07/15/2015 TEE CORTES FAC, ALI FACP CCDS Ot Z95.1 07/22/2015 TEE CORTES FAC, ALI FACP CCDS Ot I25.10 07/22/2015 TEE CORTES FAC, ALI FACP CCDS Ot I69.398 07/22/2015 TEE CORTES FAC, ALI FACP CCDS Ot N18.3 07/22/2015 TEE CORTES [facility], ALI FACP CCDS Ot R00.2 07/22/2015 TEE CORTES [facility], ALI FACP CCDS Ot R20.2 07/22/2015 TEE CORTES [facility], ALI FACP CCDS Ot R55 07/22/2015 TEE CORTES [facility], ALI FACP CCDS Ot Z79.899 07/22/2015 TEE CORTES [facility], ALI FACP CCDS Ot Z95.1 07/29/2015 CIARAN RUDD MD Ot M47.816 SPONDYLOSIS W/O MYELOPATHY OR RADICULOPA 07/29/2015 CIARAN RUDD MD Ot M51.16 INTERVERTEBRAL DISC DISORDERS W RADICULO 07/29/2015 CIARAN RUDD MD Ot M53.3 SACROCOCCYGEAL DISORDERS, NOT ELSEWHERE 07/29/2015 CIARAN RUDD MD Ot Z79.899 OTHER VARNISHING UNIT OPERATOR (CURRENT) DRUG THERAPY 07/29/2015 Ot 414.01 07/29/2015 Ot 401.9 07/29/2015 ASAEL RODRIGUEZ DECORATING SUPERVISOR Ot 719.41 07/29/2015 ASAEL RODRIGUEZ DECORATING SUPERVISOR Ot 721.3 07/29/2015 ASAEL RODRIGUEZ DECORATING SUPERVISOR Ot E000.8 07/29/2015 ASAEL RODRIGUEZ DECORATING SUPERVISOR Ot E888.9 07/29/2015 SHAMEKA CORTES, DAINA Garcia Ot 185 07/29/2015 SHAMEKA CORTES, DAINA Garcia Ot 721.0 07/29/2015 DAINA MYLES MD Ot 721.3 07/29/2015 NWLEE RIOS MUSEUM SPECIALIST Ot I10 07/29/2015 LEE NEIL MUSEUM SPECIALIST Ot R07.9 07/29/2015 NWAGWU, ISIDORE O MUSEUM SPECIALIST Ot E16.2 07/29/2015 NWAGWU, ISIDORE O MUSEUM SPECIALIST Ot F32.9 07/29/2015 NWAGWU, ISIDORE O MUSEUM SPECIALIST Ot F41.9 07/29/2015 NWAGWU, ISIDORE O MUSEUM SPECIALIST Ot I10 07/29/2015 NWAGWU, ISIDORE O MUSEUM SPECIALIST Ot M48.00 07/29/2015 NWAGWU, ISIDORE O MUSEUM SPECIALIST Ot R07.9 07/29/2015 TEE CORTES FAC, ALI FACP CCDS Ot I10 07/29/2015 TEE CORTES FAC, ALI FACP CCDS Ot I25.10 07/29/2015 TEE BRITT, ALI FACP CCDS Ot I65.23 07/29/2015 TEE CORTES [facility], ALI FACP CCDS Ot K91.1 07/29/2015 TEE CORTES [facility], ALI FACP CCDS Ot R55 07/29/2015 TEE CORTES [facility], ALI FACP CCDS Ot I10 07/29/2015 TEE CORTES [facility], ALI FACP CCDS Ot I25.10 07/29/2015 TEE CORTES [facility], ALI FACP CCDS Ot I65.23 07/29/2015 TEE CORTES [facility], ALI FACP CCDS Ot K91.1 07/29/2015 TEE CORTES [facility], ALI FACP CCDS Ot R55 07/29/2015 SHAMEKA CORTES, DAINA Garcia Ot I10 07/29/2015 TEE BRITT, ALI FACP CCDS Ot I25.10 07/29/2015 TEE CORTES [facility], ALI FACP CCDS Ot I69.398 07/29/2015 TEE CORTES [facility], ALI FACP CCDS Ot N18.3 07/29/2015 TEE CORTES [facility], ALI FACP CCDS Ot R00.2 07/29/2015 TEE BRITT, ALI FACP CCDS Ot R20.2 07/29/2015 TEE CORTES [facility], ALI FACP CCDS Ot R55 07/29/2015 TEE CORTES [facility], ALI FACP CCDS Ot Z79.899 07/29/2015 TEE RBITT, ALI FACP CCDS Ot Z95.1 07/29/2015 CIARAN RUDD MD Ot M47.816 07/29/2015 CIARAN RUDD MD Ot M48.06 07/29/2015 CIARAN RUDD MD Ot M51.16 07/29/2015 CIARAN RUDD MD Ot M53.3 07/29/2015 DAINA MYLES MD Ot I10 08/04/2015 TEE CORTES FACC, ALI FACP CCDS Ot I25.10 08/04/2015 TEE CORTES FACC, ALI FACP CCDS Ot I69.398 08/04/2015 TEE CORTES FACC, ALI FACP CCDS Ot N18.3 08/04/2015 TEE CORTES FACC, ALI FACP CCDS Ot R00.2 08/04/2015 TEE CORTES FACC, ALI FACP CCDS Ot R20.2 08/04/2015 TEE CORTES FACC, ALI FACP CCDS Ot R55 08/04/2015 TEE CORTES FACC, ALI FACP CCDS Ot Z79.899 08/04/2015 TEE [...] I71.4 ABDOMINAL AORTIC ANEURYSM, 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 09/22/2015 ASENCIO, FIONA M DECORATING SUPERVISOR Ot I71.4 ABDOMINAL AORTIC ANEURYSM, 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 09/30/2015 FIONA ASENCIO DECORATING SUPERVISOR Ot I71.4 ABDOMINAL AORTIC ANEURYSM, 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 10/03/2015 KARLOS ZHU MD Ot I71.4 ABDOMINAL AORTIC ANEURYSM, 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 10/03/2015 KARLOS ZHU MD Ot Z01.810 ENCOUNTER FOR PREPROCEDURAL CARDIOVASCUL 10/03/2015 KARLOS ZHU MD Ot Z01.811 ENCOUNTER FOR PREPROCEDURAL RESPIRATORY 10/03/2015 KARLOS ZHU MD, Ot Z01.812 ENCOUNTER FOR PREPROCEDURAL LABORATORY E 10/03/2015 FIONA ASENCIO DECORATING SUPERVISOR Ot I71.4 ABDOMINAL AORTIC ANEURYSM, 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 10/03/2015 FIONA ASENCIO DECORATING SUPERVISOR Ot I71.4 ABDOMINAL AORTIC ANEURYSM, 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 10/05/2015 TOBIN CORTES, CIARAN Cummings Ot M47.816 SPONDYLOSIS W/O MYELOPATHY OR RADICULOPA 10/05/2015 CIARAN RUDD MD Ot M48.06 SPINAL STENOSIS, LUMBAR REGION 10/05/2015 CIARAN RUDD MD Ot M51.16 INTERVERTEBRAL DISC DISORDERS W RADICULO 10/05/2015 CIARAN RUDD MD Ot M53.3 SACROCOCCYGEAL DISORDERS, NOT ELSEWHERE 10/05/2015 FIONA ASENCIO DECORATING SUPERVISOR Ot I71.4 ABDOMINAL AORTIC ANEURYSM, 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 [...] ENCOUNTER FOR PREPROCEDURAL CARDIOVASCUL 10/27/2015 KARLOS ZHU MD Ot Z01.811 ENCOUNTER FOR PREPROCEDURAL RESPIRATORY 10/27/2015 KARLOS ZHU MD Ot Z01.812 ENCOUNTER FOR PREPROCEDURAL LABORATORY E 10/27/2015 NORMA CORTES, RADHA Loyola Ot M48.06 SPINAL STENOSIS, LUMBAR REGION 10/27/2015 NORMA CORTES, RADHA Loyola Ot M54.16 RADICULOPATHY, LUMBAR REGION 10/28/2015 CIARAN [...] ELSEWHERE 03/20/2016 Ot 414.[address] [place] CORON 03/20/2016 Ot 401.9 HYPERTENSION NOS 03/20/2016 ASAEL RODRIGUEZ Ot 719.41 JOINT PAIN-SHLDER 03/20/2016 ASAEL RODRIGUEZ Ot 721.3 LUMBOSACRAL SPONDYLOSIS 03/20/2016 ASAEL RODRIGUEZP Ot E000.8 OTHER EXTERNAL CAUSE STATUS 03/20/2016 ASAEL RODRIGUEZ Ot E888.9 FALL NOS 03/20/2016 SHAMEKA CORTES, DAINA Garcia Ot 185 MALIGN NEOPL PROSTATE 03/20/2016 SHAMEKA CORTES, DAINA Garcia Ot 721.0 CERVICAL SPONDYLOSIS 03/20/2016 SHAMEKA CORTES, DAINA Garcia Ot 721.3 LUMBOSACRAL SPONDYLOSIS 03/20/2016 NWAGWU, ISIDORE O MUSEUM SPECIALIST Ot I10 ESSENTIAL (PRIMARY) HYPERTENSION 03/20/2016 NWAGWU, ISIDORE O MUSEUM SPECIALIST Ot R07.9 CHEST PAIN, UNSPECIFIED 03/20/2016 NWAGWU, ISIDORE O MUSEUM SPECIALIST Ot E16.2 HYPOGLYCEMIA, UNSPECIFIED 03/20/2016 NWAGWU, ISIDORE O MUSEUM SPECIALIST Ot F32.9 MAJOR DEPRESSIVE DISORDER, SINGLE EPISOD 03/20/2016 NWAGWU, ISIDORE O MUSEUM SPECIALIST Ot F41.9 ANXIETY DISORDER, UNSPECIFIED 03/20/2016 NWAGWU, ISIDORE O MUSEUM SPECIALIST Ot I10 ESSENTIAL (PRIMARY) HYPERTENSION 03/20/2016 NWAGWU, ISIDORE O MUSEUM SPECIALIST Ot M48.00 SPINAL STENOSIS, SITE UNSPECIFIED 03/20/2016 NWAGWU, ISIDORE O MUSEUM SPECIALIST Ot R07.9 CHEST PAIN, UNSPECIFIED 03/20/2016 TEE CORTES FACC, RONALD FACP CCDS Ot I10 ESSENTIAL (PRIMARY) HYPERTENSION 03/20/2016 TEE CORTES FACC, RONALD FACP CCDS Ot 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 03/20/2016 TEE CORTES FACC, ALI FACP CCDS Ot I69.398 OTHER SEQUELAE OF CEREBRAL INFARCTION 03/20/2016 TEE CORTES FACC, ALI FACP CCDS Ot N18.3 CHRONIC KIDNEY DISEASE, STAGE 3 ( MODERAT 03/20/2016 TEE CORTES FACC, ALI FACP CCDS Ot R00.2 PALPITATIONS 03/20/2016 TEE CORTES FACC, ALI FACP CCDS Ot R20.2 PARESTHESIA OF SKIN 03/20/2016 TEE CORTES FACC, ALI FACP CCDS Ot R55 SYNCOPE AND COLLAPSE 03/20/2016 TEE CORTES FACC, ALI FACP CCDS Ot Z79.899 OTHER [facility] (CURRENT) DRUG THERAPY 03/20/2016 TEE CORTES FACC, ALI FACP CCDS Ot Z95.1 PRESENCE OF AORTOCORONARY BYPASS GRAFT 03/20/2016 CAIRAN RUDD MD Ot M47.816 SPONDYLOSIS W/O MYELOPATHY [...] AORTIC ANEURYSM, 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 03/27/2016 FIONA ASENCIO DECORATING SUPERVISOR Ot I71.4 ABDOMINAL AORTIC ANEURYSM, 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 03/28/2016 TEE CORTES FACC, ALI FACP CCDS Ot I47.1 SUPRAVENTRICULAR TACHYCARDIA 03/28/2016 TEE CORTES FACC, ALI FACP CCDS Ot I65.23 OCCLUSION AND STENOSIS OF BILATERAL [place] 03/28/2016 TEE CORTES FACC, ALI FACP CCDS Ot I70.[address] 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 04/04/2016 TEE CORTES FACC, ALI FACP CCDS Ot I47.1 SUPRAVENTRICULAR TACHYCARDIA 04/04/2016 TEE CORTES FACC, ALI FACP CCDS Ot I65.23 OCCLUSION AND STENOSIS OF BILATERAL [place] 04/04/2016 TEE CORTES FACC, ALI FACP CCDS Ot I70.[address] 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 04/11/2016 TEE CORTES FACC, ALI FACP CCDS Ot I47.1 SUPRAVENTRICULAR TACHYCARDIA 04/11/2016 TEE OCRTES FACC, ALI FACP CCDS Ot I65.23 OCCLUSION AND STENOSIS OF BILATERAL [place] 04/11/2016 TEE CORTES FACC, ALI FACP CCDS Ot I70.[address] [facility] ARTERIES OF EXTRM W INTRMT 04/11/2016 TEE CORTES FACC, ALI FACP CCDS Ot I71.4 ABDOMINAL AORTIC ANEURYSM, 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 04/13/2016 DAINA MYLES MD Ot M25.511 PAIN IN RIGHT SHOULDER 04/18/2016 TEE CORTES FACC, RONALD FACP CCDS Ot 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 04/18/2016 TEE CORTES FACC, ALI FACP CCDS Ot I69.398 OTHER SEQUELAE OF CEREBRAL INFARCTION 04/18/2016 TEE CORTES FACC, ALI FACP CCDS Ot N18.3 CHRONIC KIDNEY DISEASE, STAGE 3 ( MODERAT 04/18/2016 TEE CORTES FACC, RONALD FACP CCDS Ot R00.2 PALPITATIONS 04/18/2016 TEE CORTES FACC, RONALD FACP CCDS Ot R20.2 PARESTHESIA OF SKIN 04/18/2016 TEE CORTES FACC, ALI FACP CCDS Ot R55 SYNCOPE AND COLLAPSE 04/18/2016 TEE CORTES FACC, ALI FACP CCDS Ot Z79.899 OTHER [facility] (CURRENT) DRUG THERAPY 04/18/2016 TEE CORTES FACC, ALI FACP CCDS Ot Z95.1 PRESENCE OF AORTOCORONARY BYPASS GRAFT 04/18/2016 DAINA MYLES MD Ot M25.511 PAIN IN RIGHT SHOULDER 04/18/2016 TEE CORTES FACC, ALI FACP CCDS Ot 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 04/18/2016 TEE CORTES FACC, ALI FACP CCDS Ot I47.1 SUPRAVENTRICULAR TACHYCARDIA 04/18/2016 TEE CORTES FACC, ALI FACP CCDS Ot I65.23 OCCLUSION AND STENOSIS OF BILATERAL [place] 04/18/2016 TEE CORTES FACC, ALI FACP CCDS Ot I70.[address] 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 04/18/2016 TEE CORTES FACC, ALI FACP CCDS Ot I47.1 SUPRAVENTRICULAR TACHYCARDIA 04/18/2016 TEE CORTES FACC, ALI FACP CCDS Ot I65.23 OCCLUSION AND STENOSIS OF BILATERAL [place] 04/18/2016 TEE CORTES FACC, ALI FACP CCDS Ot I70.[address] 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 05/04/2016 TEE CORTES FACC, ALI FACP CCDS Ot I47.1 SUPRAVENTRICULAR TACHYCARDIA 05/04/2016 TEE CORTES FACC, ALI FACP CCDS Ot I65.23 OCCLUSION AND STENOSIS OF BILATERAL [place] 05/04/2016 TEE CORTES FACC, ALI FACP CCDS Ot I70.[address] 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 05/04/2016 TEE CORTES [facility], ALI FACP CCDS Ot I47.1 SUPRAVENTRICULAR TACHYCARDIA 05/04/2016 TEE CORTES FACC, ALI FACP CCDS Ot I65.23 OCCLUSION AND STENOSIS OF BILATERAL [place] 05/04/2016 TEE CORTES FACC, ALI FACP CCDS Ot I70.[address] [facility] ARTERIES OF EXTRM W INTRMT 05/04/2016 TEE CORTES FACC, ALI FACP CCDS Ot I71.4 ABDOMINAL AORTIC ANEURYSM, 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 05/09/2016 SHAMEKA CORTES, DAINA Garcia Ot M25.511 PAIN IN RIGHT SHOULDER 05/11/2016 DAINA MYLES MD Ot M25.511 PAIN IN RIGHT SHOULDER 05/23/2016 DAINA MYLES MD Ot M25.511 PAIN IN RIGHT SHOULDER 05/30/2016 DAINA MYLES MD Ot M25.511 PAIN IN RIGHT SHOULDER 06/13/2016 Ot 414.[address] [facility] CORON 06/13/2016 Ot 401.9 HYPERTENSION NOS 06/13/2016 ASAEL RODRIGUEZ DECORATING SUPERVISOR Ot 719.41 JOINT PAIN-SHLDER 06/13/2016 ASAEL RODRIGUEZ DECORATING SUPERVISOR Ot 721.3 LUMBOSACRAL SPONDYLOSIS 06/13/2016 SAAEL RODRIGUEZ DECORATING SUPERVISOR Ot E000.8 OTHER EXTERNAL CAUSE STATUS 06/13/2016 ASAEL RODRIGUEZ DECORATING SUPERVISOR Ot E888.9 FALL NOS 06/13/2016 DAINA MYLES MD Ot 185 MALIGN NEOPL PROSTATE 06/13/2016 DAINA MYLES MD Ot 721.0 CERVICAL SPONDYLOSIS 06/13/2016 DAINA MYLES MD Ot 721.3 LUMBOSACRAL SPONDYLOSIS 06/13/2016 NWAGWU, ISIDORE O MUSEUM SPECIALIST Ot I10 ESSENTIAL (PRIMARY) HYPERTENSION 06/13/2016 NWIGNACIOWEster, ISIDORE O MUSEUM SPECIALIST Ot R07.9 CHEST PAIN, UNSPECIFIED 06/13/2016 NWIGNACIOWEster, ISIDORE O MUSEUM SPECIALIST Ot E16.2 HYPOGLYCEMIA, UNSPECIFIED 06/13/2016 NWAGWU, ISIDORE O MUSEUM SPECIALIST Ot F32.9 MAJOR DEPRESSIVE DISORDER, SINGLE EPISOD 06/13/2016 NWAGWEster ISIDORE O MUSEUM SPECIALIST Ot F41.9 ANXIETY DISORDER, UNSPECIFIED 06/13/2016 NWAGWLEE Norman O MUSEUM SPECIALIST Ot I10 ESSENTIAL (PRIMARY) HYPERTENSION 06/13/2016 LEE NEIL O MUSEUM SPECIALIST Ot M48.00 SPINAL STENOSIS, SITE UNSPECIFIED 06/13/2016 LEILAWLEE Norman MUSEUM SPECIALIST Ot R07.9 CHEST PAIN, UNSPECIFIED 06/13/2016 TEE CORTES FACC, RONALD FACP CCDS Ot I10 ESSENTIAL (PRIMARY) HYPERTENSION 06/13/2016 TEE CORTES FACC, ALI FACP CCDS Ot 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 06/13/2016 TEE CORTES FACC, ALI FACP [...] CCDS Ot 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 06/13/2016 TEE CORTES FACC, RONALD FACP CCDS Ot I65.23 OCCLUSION AND STENOSIS OF BILATERAL [place] 06/13/2016 TEE CORTES FACC, ALI FACP CCDS Ot 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 06/13/2016 TEE CORTES FACC, ALI FACP CCDS Ot R55 SYNCOPE AND COLLAPSE 06/13/2016 DAINA MYLES MD Ot I10 ESSENTIAL (PRIMARY) HYPERTENSION 06/13/2016 TEE CORTES FACC, RONALD FACP CCDS Ot 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 06/13/2016 TEE CORTES FACC, RONALD BRITTP CCDS Ot I47.1 SUPRAVENTRICULAR TACHYCARDIA 06/13/2016 TEE CORTES FACC, RONALD BRITTP CCDS Ot I65.23 OCCLUSION AND STENOSIS OF BILATERAL [place] 06/13/2016 RONALD OLIVEIRA MD, FACCP CCDS Ot I70.[address] [facility] [facility] ARTERIES OF EXTRM W INTRMT 06/13/2016 RONALD OLIVEIRA MD, FACCP CCDS Ot I71.4 ABDOMINAL AORTIC ANEURYSM, 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 06/13/2016 TEE CORTES FACC, ALI FACP CCDS Ot N18.3 CHRONIC KIDNEY DISEASE, STAGE 3 ( MODERAT 06/13/2016 TEE CORTES FACC, ALI FACP CCDS Ot 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 MELLITUS W DIABETIC ANALYTICAL CHEMISTRY TEACHER 06/13/2016 TEE CORTES FACC, ALI FACP CCDS Ot 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 06/13/2016 TEE CORTES FACC, ALI FACP CCDS Ot I47.1 SUPRAVENTRICULAR TACHYCARDIA 06/13/2016 TEE CORTES FACC, ALI FACP CCDS Ot I65.23 OCCLUSION AND STENOSIS OF BILATERAL [place] 06/13/2016 TEE CORTES FACC, ALI FACP CCDS Ot I70.[address] [facility] ARTERIES OF EXTRM W INTRMT 06/13/2016 TEE CORTES FACC, ALI FACP CCDS Ot I71.4 ABDOMINAL AORTIC ANEURYSM, 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 06/13/2016 SHAMEKA CORTES, DAINA Garcia Ot M25.511 PAIN IN RIGHT SHOULDER 06/22/2016 Ot 414.[address] [place] CORON 06/22/2016 Ot 401.9 HYPERTENSION NOS 06/22/2016 ASAEL RODRIGUEZ DECORATING SUPERVISOR Ot 719.41 JOINT PAIN-SHLDER 06/22/2016 ASAEL RODRIGUEZ DECORATING SUPERVISOR Ot 721.3 LUMBOSACRAL SPONDYLOSIS 06/22/2016 ASAEL RODRIGUEZ DECORATING SUPERVISOR Ot E000.8 OTHER EXTERNAL CAUSE STATUS 06/22/2016 ASAEL RODRIGUEZ DECORATING SUPERVISOR Ot E888.9 FALL NOS 06/22/2016 DAINA MYLES MD Ot 185 MALIGN NEOPL PROSTATE 06/22/2016 DAINA MYLES MD Ot 721.0 CERVICAL SPONDYLOSIS 06/22/2016 DAINA MYLES MD Ot 721.3 LUMBOSACRAL SPONDYLOSIS 06/22/2016 NWAGWU, ISIDORE O MUSEUM SPECIALIST Ot I10 ESSENTIAL (PRIMARY) HYPERTENSION 06/22/2016 NWAGWU, ISIDORE O MUSEUM SPECIALIST Ot R07.9 CHEST PAIN, UNSPECIFIED 06/22/2016 NWAGWU, ISIDORE O MUSEUM SPECIALIST Ot E16.2 HYPOGLYCEMIA, UNSPECIFIED 06/22/2016 NWAGWU, ISIDORE O MUSEUM SPECIALIST Ot F32.9 MAJOR DEPRESSIVE DISORDER, SINGLE EPISOD 06/22/2016 NWAGWU, JULIANADORE O MUSEUM SPECIALIST Ot F41.9 ANXIETY DISORDER, UNSPECIFIED 06/22/2016 NWAGWU, ISIDORE O MUSEUM SPECIALIST Ot I10 ESSENTIAL (PRIMARY) HYPERTENSION 06/22/2016 NWAGWU, JULIANADORE O MUSEUM SPECIALIST Ot M48.00 SPINAL STENOSIS, SITE UNSPECIFIED 06/22/2016 NWAGWU, JULIANADORE O MUSEUM SPECIALIST Ot R07.9 CHEST PAIN, UNSPECIFIED 06/22/2016 TEE CORTES FACC, RONALD FACP CCDS Ot I10 ESSENTIAL (PRIMARY) HYPERTENSION 06/22/2016 TEE CORTES FACC, ALI FACP CCDS Ot 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 06/22/2016 TEE CORTES FACC, ALI FACP CCDS Ot I65.23 OCCLUSION AND STENOSIS OF BILATERAL [place] 06/22/2016 TEE CORTES FACC, ALI FACP CCDS Ot 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 06/22/2016 TEE CORTES FACC, RONALD FACP CCDS Ot R55 SYNCOPE AND COLLAPSE 06/22/2016 TEE CORTES FACC, RONALD FACP CCDS Ot I10 ESSENTIAL (PRIMARY) HYPERTENSION 06/22/2016 TEE CORTES FACC, ALI FACP CCDS Ot 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 06/22/2016 TEE CORTES FACC, ALI FACP CCDS Ot I69.398 OTHER SEQUELAE OF CEREBRAL INFARCTION 06/22/2016 TEE CORTES FACC, ALI FACP CCDS Ot N18.3 CHRONIC KIDNEY DISEASE, STAGE 3 ( MODERAT 06/22/2016 TEE CORTES FACC, ALI FACP CCDS Ot R00.2 PALPITATIONS 06/22/2016 TEE CORTES FACC, ALI FACP CCDS Ot R20.2 PARESTHESIA OF SKIN 06/22/2016 TEE CORTES FACC, RONALD BRITTP CCDS Ot R55 SYNCOPE AND COLLAPSE 06/22/2016 TEE CORTES FACC, RONALD BRITTP CCDS Ot Z79.899 OTHER [facility] (CURRENT) DRUG THERAPY 06/22/2016 TEE CORTES FACC, RONALD BRITTP CCDS [...] ENCOUNTER FOR PREPROCEDURAL LABORATORY E 06/22/2016 FIONA ASENCIOP Ot 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 06/22/2016 TEE CORTES FACC, RONALD BRITTP CCDS Ot I47.1 SUPRAVENTRICULAR TACHYCARDIA 06/22/2016 TEE CORTES FACC, RONALD BRITTP CCDS Ot I65.23 OCCLUSION AND STENOSIS OF BILATERAL [place] 06/22/2016 RONALD OLIVEIRA MD, FACCP CCDS Ot I70.[address] [facility] 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 06/22/2016 TEE CORTES FACC, ALI FACP CCDS Ot I47.1 SUPRAVENTRICULAR TACHYCARDIA 06/22/2016 TEE CORTES FACC, ALI FACP CCDS Ot I65.23 OCCLUSION AND STENOSIS OF BILATERAL [place] 06/22/2016 TEE CORTES FACC, ALI FACP CCDS Ot I70.[address] 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) DRUG THERAPY 12/19/2016 TEE CORTES FACC, RONALD FACP CCDS Ot Z95.1 PRESENCE OF AORTOCORONARY BYPASS GRAFT 12/26/2016 ASAEL RODRIGUEZ DECORATING SUPERVISOR Ot 719.41 JOINT PAIN-SHLDER 12/26/2016 ASAEL RODRIGUEZ DECORATING SUPERVISOR Ot 721.3 LUMBOSACRAL SPONDYLOSIS 12/26/2016 ASAEL RODRIGUEZ DECORATING SUPERVISOR Ot E000.8 OTHER EXTERNAL CAUSE STATUS 12/26/2016 ASAEL RODRIGUEZ DECORATING SUPERVISOR Ot E888.9 FALL NOS 12/26/2016 SHAMEKA CORTES, DAINA Garcia Ot 185 MALIGN NEOPL PROSTATE 12/26/2016 SHAMEKA CORTES, DAINA Garcia Ot 721.0 CERVICAL SPONDYLOSIS 12/26/2016 SHAMEKA CORTES, DAINA Garcia Ot 721.3 LUMBOSACRAL SPONDYLOSIS 12/26/2016 NWAGWU, ISIDORE O MUSEUM SPECIALIST Ot I10 ESSENTIAL (PRIMARY) HYPERTENSION 12/26/2016 NWAGWU, ISIDORE O MUSEUM SPECIALIST Ot R07.9 CHEST PAIN, UNSPECIFIED 12/26/2016 NWAGWU, ISIDORE O MUSEUM SPECIALIST Ot E16.2 HYPOGLYCEMIA, UNSPECIFIED 12/26/2016 NWAGWU, ISIDORE O MUSEUM SPECIALIST Ot F32.9 MAJOR DEPRESSIVE DISORDER, SINGLE EPISOD 12/26/2016 NWAGWU, ISIDORE O MUSEUM SPECIALIST Ot F41.9 ANXIETY DISORDER, UNSPECIFIED 12/26/2016 NWAGWU, ISIDORE O MUSEUM SPECIALIST Ot I10 ESSENTIAL (PRIMARY) HYPERTENSION 12/26/2016 NWAGWU, ISIDORE O MUSEUM SPECIALIST Ot M48.00 SPINAL STENOSIS, SITE UNSPECIFIED 12/26/2016 NWAGWU, ISIDORE O MUSEUM SPECIALIST Ot R07.9 CHEST PAIN, UNSPECIFIED 12/26/2016 TEE CORTES FACC, RONALD FACP CCDS Ot I10 ESSENTIAL (PRIMARY) HYPERTENSION 12/26/2016 TEE CORTES FACC, RONALD BRITTP CCDS Ot 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 12/26/2016 TEE CORTES FACC, ALI FACP CCDS Ot Z95.1 PRESENCE OF AORTOCORONARY BYPASS GRAFT 12/26/2016 CIARAN RUDD MD Ot M47.816 SPONDYLOSIS W/O MYELOPATHY OR RADICULOPA 12/26/2016 CIARAN RUDD MD Ot M48.06 SPINAL STENOSIS, LUMBAR REGION 12/26/2016 CIARAN RUDD MD Ot M51.16 INTERVERTEBRAL DISC DISORDERS W RADICULO 12/26/2016 CIARAN RUDD MD Ot M53.3 SACROCOCCYGEAL DISORDERS, NOT ELSEWHERE 12/26/2016 KARLOS ZHU MD Ot I71.4 ABDOMINAL AORTIC ANEURYSM, 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 12/26/2016 AUDRA CORTES, KARLOS Ot Z01.810 ENCOUNTER FOR PREPROCEDURAL CARDIOVASCUL 12/26/2016 KARLOS ZHU MD Ot Z01.811 ENCOUNTER FOR PREPROCEDURAL RESPIRATORY 12/26/2016 KARLOS ZHU MD Ot Z01.812 ENCOUNTER FOR PREPROCEDURAL LABORATORY E 12/26/2016 FIONA ASENCIO Dorothy DECORATING SUPERVISOR Ot I71.4 ABDOMINAL AORTIC ANEURYSM, 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 12/26/2016 ASENCIOFIONA DECORATING SUPERVISOR Ot 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 12/26/2016 TEE CORTES FACC, ALI FACP CCDS Ot I47.1 SUPRAVENTRICULAR TACHYCARDIA 12/26/2016 TEE CORTES FACC, ALI FACP CCDS Ot I65.23 OCCLUSION AND STENOSIS OF BILATERAL [place] 12/26/2016 TEE CORTES FACC, ALI FACP CCDS Ot I70.[address] 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 12/28/2016 DK ADAME DO Ot M47.816 SPONDYLOSIS W/O MYELOPATHY OR RADICULOPA 12/28/2016 DK ADAME DO Ot M51.36 OTHER INTERVERTEBRAL DISC DEGENERATION, 01/09/2017 DK ADAME DO Ot I77.811 ABDOMINAL AORTIC ECTASIA 01/09/2017 DK ADAME DO Ot M47.816 SPONDYLOSIS W/O MYELOPATHY OR RADICULOPA 01/09/2017 DK ADAME DO Ot M51.36 OTHER INTERVERTEBRAL DISC DEGENERATION, 01/16/2017 REYES TALAMANTES R Ot M47.896 OTHER SPONDYLOSIS, LUMBAR REGION 01/19/2017 SALOME TALAMANTESSHUA R Ot M47.896 OTHER SPONDYLOSIS, LUMBAR REGION 01/22/2017 REYES TALAMANTES R Ot M47.896 OTHER SPONDYLOSIS, LUMBAR REGION 03/06/2017 SALOME TALAMANTESSHUA R Ot M47.896 OTHER SPONDYLOSIS, LUMBAR REGION Procedures Results Encounters ACCT No. Visit Date/Time Discharge Status Pt. Type Provider Facility Loc./Unit Complaint [id number] 03/26/2017 07:54:00 2016 23:59:59 CLS Outpatient FIONA ASENCIO [facility] RAD AAA [id number] 03/20/2017 13:44:00 2016 15:01:00 DIS Outpatient SKY TALAMANTESUA R [facility] REHAB LUMBAR SPONDYLOSIS [id number] 01/18/2017 13:30:00 2016 00:01:00 DIS Outpatient SWEET PASALOMEREYES R [facility] REHAB LUMBAR SPONDYLOSIS [id number] 12/27/2016 15:03:00 2016 23:59:59 CLS Outpatient DK ADAME DO [facility] RAD BACK PAIN [id number] 10/02/2016 09:38:00 2016 23:59:59 CLS Outpatient RONALD OLIVEIRA MD, FACC, FACP CCDS [facility] CATH PALPITATIONS,PAROXYSMAL ATRIAL FLUTTER,HTN [id number] 05/17/2016 14:18:00 2016 23:59:59 CLS Outpatient DAINA MYLES MD [facility] REHAB POSSIBLE ROTATOR CUFF TEAR R SHOULDER [id number] 05/10/2016 12:31:00 2016 23:59:59 CLS Outpatient DAINA MYLES MD [facility] RAD R SHOULDER PAIN [id number] 03/27/2016 12:20:00 2015 23:59:59 CLS Outpatient RONALD OLIVEIRA MD, FACC, FACP CCDS [facility] RAD CAD [id number] 03/26/2016 08:35:00 2015 23:59:59 CLS Outpatient FIONA ASENCIO [facility] RAD AAA [id number] 03/20/2016 07:43:00 2015 23:59:59 CLS Outpatient RONALD OLIVEIRA MD, FACC, FACP CCDS [facility] CARD CAD,OSCAR,SVT,DM [id number] 11/11/2015 06:12:00 2015 10:20:00 DIS Outpatient HALINA DELUNA DPM [facility] SDC HAGLUNDS DEFORMITY [id number] 11/03/2015 05:37:00 2015 09:26:00 DIS Outpatient HALINA DELUNA DPM [facility] PREOP HAGLUNDS DEFORMITY [id number] 10/28/2015 07:41:00 2015 08:55:00 DIS Outpatient CIARAN RUDD MD [facility] CARD DISC DISORDER, SACROCOCCYGEAL DISORDER [id number] 10/26/2015 14:37:00 2015 16:13:00 DIS Emergency RADHA GREEN MD [facility] ER BACK/LEFT HIP/LEG PAIN [id number] 09/16/2015 10:16:00 2015 23:59:59 CLS Outpatient FIONA ASENCIO [facility] RAD AAA [id number] 08/10/2015 09:50:00 2015 23:59:59 CLS Outpatient KARLOS ZHU MD [facility] LAB ABDOMINAL AORTIC ANEURYSM [id number] 07/29/2015 07:43:00 2015 08:54:00 DIS Outpatient CIARAN RUDD MD [facility] CARD DISC DISORDER W/RADICULOPATHY, SACROCOCCYGEAL DISOR [id number] 07/25/2015 13:19:00 2015 23:59:59 CLS Outpatient CIARAN RUDD MD [facility] RAD LBP [id number] 06/21/2015 08:41:00 2015 23:59:59 CLS Outpatient TEE BRITTCRONALD FACP CCDS [facility] CATH PALPATATIONS, SYNCOPE [id number] 06/13/2015 12:11:00 2015 13:12:00 DIS Outpatient CIARAN RUDD MD [facility] CARD DISC DISORDER W/RADICULOPATHY [id number] 05/28/2015 08:45:00 2015 23:59:59 CLS Outpatient DAINA MYLES MD [facility] LAB HTN [id number] 03/04/2015 06:49:00 2014 07:41:00 DIS Outpatient CIARAN RUDD MD [facility] CARD DISC DISORDER W/RADICULOPATHY [id number] 02/24/2015 14:26:00 2014 23:59:59 CLS Outpatient TEE CORTES FACC, ALI FACP CCDS [facility] CARD HTN,CAD,SYNCOPE [id number] 02/14/2015 10:07:00 2014 23:59:59 CLS Outpatient TEE CORTES FACYann, ALI FACP CCDS [facility] LAB HTN,CAD,CAROTID ARTERY STENOSIS,DUMPING SYNDROME [id number] 02/03/2015 07:19:00 2014 23:59:59 CLS Outpatient NWAGWU, ISIDORE O MUSEUM SPECIALIST [facility] CARD CHEST PAIN, HTN, HYUOPGLYCEMIA, ANXIETY [id number] 01/24/2015 08:44:00 2014 23:59:59 CLS Outpatient NWAGWU, ISIDORE O MUSEUM SPECIALIST [facility] CARD CP, HTN, ANXIETY [id number] 12/31/2014 15:05:00 2014 23:59:59 CLS Outpatient DAINA MYLES MD [facility] RAD CERVICAL RADICULOPATHY BACK PAIN TIA [id number] 11/19/2014 14:40:00 2014 23:59:59 CLS Outpatient ASAEL RODRIGUEZ [facility] RAD R SHOULDER PAIN,LOWER BACK PAIN [id number] 04/03/2017 19:51:00 ACT Emergency EMA ARRIOLA DO [facility] ER SOB [id number] 02/28/2011 08:47:00 Document Registration [id number] 02/01/2011 08:38:00 Document Registration [id number] 01/22/2011 11:47:00 Document Registration
[2017-04-03] MEDS ORDERED: ASPIRIN 81 MG CHEW (CHILDREN'S ASA) PO ONE (20:00)
[2017-04-03 20:12] LABS: BASOPHILS % (AUTO) 0 % (0-10); EOSINOPHILS # (AUTO) 0.4 10^3/uL (0.0-0.3); EOSINOPHILS % (AUTO) 3 % (0-10); LYMPHOCYTES % (AUTO) 17 % (12-44); MEAN CORPUSCULAR HEMOGLOBIN 32 PG (25-34); MEAN CORPUSCULAR HGB CONC 34 G/DL (32-36); MEAN CORPUSCULAR VOLUME 94 FL (80-99); MEAN PLATELET VOLUME 10.6 FL (7.4-10.4); MONOCYTES # (AUTO) 0.8 X 10^3 (0.0-1.0); MONOCYTES % (AUTO) 7 % (0-12); NEUTROPHILS # (AUTO) 8.8 X 10^3 (1.8-7.8); NEUTROPHILS % (AUTO) 74 % (42-75); PLATELET COUNT 193 10^3/uL (130-400); RED BLOOD COUNT 3.91 10^6/uL (4.35-5.85); RED CELL DISTRIBUTION WIDTH 16.4 % (10.0-14.5); WHITE BLOOD COUNT 11.9 10^3/uL (4.3-11.0)
--- NOTE | 2017-04-03 20:13 | ED Chest Pain ---
General Chief Complaint: Chest Pain Stated Complaint: SOB Source: patient (LIMITED HISTORIAN), EMS History of Present Illness Time seen by provider: 19:54 Initial Comments PT ARRIVES VIA EMS FROM HOME PT C/O CHEST PAIN AND SHORTNESS OF BREATH --BEGAN AROUND 1800 PT TOOK NTG X 2 AND SYMPTOMS HAVE RESOLVED NO ASPIRIN GIVEN BY EMS PT STATES HIS HANDS FEEL LIKE THEY ARE ON FIRE PT STATES HE "FEELS GOOFY-LIKE IM' GONNA PASS OUT" --PT IS TALKING LOUDLY AND NON-STOP HE IS SAYING THIS--DOES NOT APPEAR LETHARGIC, OR IN ANY DISCOMFORT OR DISTRESS WHATSOEVER. PT TALKS NON-STOP AND RAMBLES ON AT LENGTH, DIFFICULT TO KEEP ON SUBJECT PT IS VERY ANXIOUS, AND IS NOW FIXATED ON WHAT HE ATE FOR SUPPER--FISH WITH LAURA'S SEASONING ON IT--STATES IT BURNED HIS MOUTH, AND SYMPTOMS BEGAN SHORTLY AFTER THAT. ON ARRIVAL, PT STATES VERY ADAMANTLY THAT HE WILL NOT BE STAYING IN THE HOSPITAL PCP: DR. MYLES Allergies and Home Medications Allergies Coded Allergies: Penicillins (Unverified Allergy, Mild, ITCHING, 11/11/15) Avlavbt-Zan-Gma Reductase Inhibitor (Verified Allergy, Unknown, 01/22/11) morphine (Verified Allergy, Unknown, 01/22/11) Home Medications Alprazolam 0.5 Mg Tab.rapdis, 0.5 MG PO BID PRN for ANXIETY, (Reported) Aspirin 81 Mg Tabec, 81 MG PO HS, (Reported) Bupropion HCl 100 Mg Tablet.er, 100 MG PO BID, (Reported) Cholecalciferol (Vitamin D3) 1,000 Unit Tablet, 1,000 UNIT PO DAILY, (Reported) Hydrocodone/Acetaminophen 1 Each Tablet, 1 TAB PO Q6H PRN for PAIN, (Reported) Naproxen 500 Mg Tablet, 500 MG PO BID, (Reported) Omeprazole 20 Mg Tablet.dr, 20 MG PO BID, (Reported) Oxybutynin Chloride 5 Mg Tab.er.24, 5 MG PO HS, (Reported) Tamsulosin HCl 0.4 Mg Cap, 0.4 MG PO HS, (Reported) Trazodone HCl 50 Mg Tablet, 50-150 MG PO HS, (Reported) Review of Systems Constitutional: see HPI Respiratory: See HPI Cardiovascular: See HPI Gastrointestinal: Denies Nausea, Denies Vomiting Musculoskeletal: no symptoms reported Skin: see HPI Psychiatric/Neurological: Anxiety Past Diydgzg-Zkzgem-Njqsln Hx Patient Social History Recent Foreign Travel: No Contact w/Someone Who Travel: No Surgeries History of Surgeries: Yes Surgeries: CABG, Coronary Stent Respiratory History of Respiratory Disorde: Yes Respiratory Disorders: Sleep Apnea Cardiovascular History of Cardiac Disorders: Yes Cardiac Disorders: Coronary Artery Disease Reproductive System Hx Reproductive Disorders: No Gastrointestinal Gastrointestinal Disorders: Irritable Bowel Musculoskeletal History of Musculoskeletal Dis: Yes Musculoskeletal Disorders: Arthritis, Chronic Back Pain HEENT History of HEENT Disorders: Yes Hearing Impairment: Hard of Hearing Cancer History of Cancer: No Psychosocial History of Psychiatric Problem: Yes Behavioral Health Disorders: Anxiety, Depression Physical Exam Vital Signs Vital Sign - Last 12Hours 04/03/17 04/03/17 19:54 23:10 Temp 95.9 Pulse 71 Resp 20 B/P (MAP) 143/92 (109) Pulse Ox 98 Capillary Refill : General Appearance: No Apparent Distress, WD/WN, Anxious (VERY), Other (TALKS NON-STOP AT LENGTH, DIFFICULT TO KEEP ON SUBJECT) Respiratory: Normal Breath Sounds, No Accessory Muscle Use, No Respiratory Distress Cardiovascular: Regular Rate, Rhythm, No Edema, No Gallop Gastrointestinal: Soft Extremity: Normal Range of Motion, Non Tender, No Calf Tenderness, No Pedal Edema Neurologic/Psychiatric: Alert, Oriented x3, No Motor/Sensory Deficits, Other ( VERY ANXIOUS) Skin: Normal Color, Warm/Dry, No Rash Progress/Results/Core Measures Results/Orders Lab Results Laboratory Tests Test 04/03/17 20:00 04/03/17 20:02 04/03/17 21:40 Range/Units Glucometer 93 70-110 MG/DL White Blood Count 11.9 H 4.3-11.0 10^3/uL Red Blood Count 3.91 L 4.35-5.85 10^6/uL Hemoglobin 12.4 L 13.3-17.7 G/DL Hematocrit 37 L 40-54 % Mean Corpuscular Volume 94 80-99 FL Mean Corpuscular Hemoglobin 32 25-34 PG Mean Corpuscular Hemoglobin Concent 34 32-36 G/DL Red Cell Distribution Width 16.4 H 10.0-14.5 % Platelet Count 193 130-400 10^3/uL Mean Platelet Volume 10.6 H 7.4-10.4 FL Neutrophils (%) (Auto) 74 42-75 % Lymphocytes (%) (Auto) 17 12-44 % Monocytes (%) (Auto) 7 0-12 % Eosinophils (%) (Auto) 3 0-10 % Basophils (%) (Auto) 0 0-10 % Neutrophils # (Auto) 8.8 H 1.8-7.8 X 10^3 Lymphocytes # (Auto) 2.0 1.0-4.0 X 10^3 Monocytes # (Auto) 0.8 0.0-1.0 X 10^3 Eosinophils # (Auto) 0.4 H 0.0-0.3 10^3/uL Basophils # (Auto) 0.0 0.0-0.1 10^3/uL Prothrombin Time 13.9 12.2-14.7 SEC INR Comment 1.1 0.8-1.4 Activated Partial Thromboplast Time 27 24-35 SEC Sodium Level 139 135-145 MMOL/L Potassium Level 4.5 3.6-5.0 MMOL/L Chloride Level 110 H 98-107 MMOL/L Carbon Dioxide Level 19 L 21-32 MMOL/L Anion Gap 10 5-14 MMOL/L Blood Urea Nitrogen 25 H 7-18 MG/DL Creatinine 1.78 H 0.60-1.30 MG/DL Estimat Glomerular Filtration Rate 37 BUN/Creatinine Ratio 14 Glucose Level 97 70-105 MG/DL Calcium Level 9.3 8.5-10.1 MG/DL Magnesium Level 2.0 1.8-2.4 MG/DL Total Bilirubin 0.5 0.1-1.0 MG/DL Aspartate Amino Transf (AST/SGOT) 26 5-34 U/L Alanine Aminotransferase (ALT/SGPT) 15 0-55 U/L Alkaline Phosphatase 35 L 40-136 U/L Total Creatine Kinase 91 30-200 U/L Creatine Kinase MB 1.5 <6.6 NG/ML Troponin I < 0.30 <0.30 NG/ML B-Type Natriuretic Peptide 73.7 <100.0 PG/ML Total Protein 5.8 L 6.4-8.2 GM/DL Albumin 3.4 3.2-4.5 GM/DL Amylase Level 36 25-125 U/L Lipase 21 8-78 U/L Urine Color YELLOW Urine Clarity CLEAR Urine pH 6.5 5-9 Urine Specific [place] 1.015 L 1.016-1.022 Urine Protein NEGATIVE NEGATIVE Urine Glucose (UA) NEGATIVE NEGATIVE Urine Ketones 1+ H NEGATIVE Urine Nitrite NEGATIVE NEGATIVE Urine Bilirubin NEGATIVE NEGATIVE Urine Urobilinogen 1 NORMAL MG/DL Urine Leukocyte Esterase 1+ H NEGATIVE Urine RBC (Auto) NEGATIVE NEGATIVE Urine RBC NONE /HPF Urine WBC 0-2 /HPF Urine Squamous Epithelial Cells 0-2 /HPF Urine Crystals NONE /LPF Urine Bacteria NEGATIVE /HPF Urine Casts PRESENT /LPF Urine Hyaline Casts 25-50 H /LPF Urine Mucus SMALL H /LPF Urine Other FEW SPERM H /HPF Urine Culture Indicated NO My Orders Orders - EMA ARRIOLA DO Amylase (04/03/17 19:57) Cbc With Automated Diff (04/03/17 19:57) Comprehensive Metabolic Panel (04/03/17 19:57) Creatine Kinase (04/03/17 19:57) Creatine Kinase Mb (04/03/17 19:57) Lipase (04/03/17 19:57) Partial Thromboplastin Time (04/03/17 19:57) Protime With Inr (04/03/17 19:57) Troponin I (04/03/17 19:57) Chest 1 View, Ap/Pa Only (04/03/17 19:57) O2 (04/03/17 19:57) Ekg Tracing (04/03/17 19:57) Aspirin Chewable Tablet (Baby Aspirin Ch (04/03/17 20:00) BNP (04/03/17 19:57) Monitor-Rhythm Ecg Trace Only (04/03/17 19:57) Magnesium (04/03/17 19:57) Ct Head Wo-R/O Stroke (04/03/17 20:18) Lactated Ringers (Lr 1000 Ml Iv Solution (04/03/17 20:47) Ua Culture If Indicated (04/03/17 21:18) Medications Given in ED Current Medications Medications Dose Ordered Sig/Paolo Route Start Time Stop Time Status Last Admin Dose Admin Aspirin 324 mg ONCE ONCE PO 04/03/17 20:00 04/03/17 20:01 DC 04/03/17 20:18 324 MG Lactated Ringer's 1,000 ml @ 0 mls/hr Q0M ONCE IV 04/03/17 20:47 04/03/17 20:50 DC 12/13/17 21:02 1,000 MLS/HR Vital Signs/I&O Vital Sign - Last 12Hours 04/03/17 04/03/17 19:54 23:10 Temp 95.9 Pulse 71 72 Resp 20 16 B/P (MAP) 143/92 (109) Pulse Ox 98 Intake and Output 04/04/17 00:00 Intake Total 1000 ml Balance 1000 ml Progress Note : Progress Note REFUSES OXYGEN--STATES IT DRIES HIS THROAT OUT DAUGHTER IS RN IN LABOR/DELIVERY AND WANTS CT OF HEAD NO CHEST PAIN, SHORTNESS OF BREATH OR ANY COMPLAINTS DURING ER STAY STATES HE DOES NOT DRINK ANY WATER, OR ANY LIQUIDS EXCEPT COFFEE PT ADAMANTLY REFUSES ADMIT. STATES HE IS FINE NOW. PT IS CALMER ALL SYMPTOMS RESOLVED, INCLUDING BURNING SENSATION TO HIS HANDS ECG Initial ECG Impression Time: 19:59 Initial ECG Rate: 65 Initial ECG Rhythm: Normal Sinus (OLD INFERIOR INFARCT-INFERIOR Q WAVES) Diagnostic Imaging Comments CT HEAD--NO ACUTE PROCESS, PER RADIOLOGIST REPORT @ 2049 CXR--NO ACUTE PROCESS, PER RADIOLOGIST REPORT @ 2052 Reviewed: Reviewed by Me Departure Impression Impression: Primary Impression: Chest pain Additional Impression: Dehydration Disposition: 01 HOME, SELF-CARE Condition: Improved Departure-Patient Inst. Referrals: DK ADAME DO (PCP) Primary Care Physician DAINA MYLES MD (Family) Primary Care Physician Patient Instructions: Chest Pain (DC), Dehydration, Adult (DC) Add. Discharge Instructions: INCREASE YOUR FLUID INTAKE FOLLOW UP WITH DR. MYLES THIS WEEK FOR FURTHER CARE RETURN TO ER IF WORSE All discharge instructions reviewed with patient and/or family. Voiced understanding. EMA ARRIOLA DO Apr 03, 2017 20:13
[2017-04-03] MEDS ORDERED: BUPR100T8 PO (20:14)
[2017-04-03] MEDS ORDERED: CHOL10003 PO (20:14)
[2017-04-03 20:31] LABS: INR 1.1 (0.8-1.4); PROTHROMBIN TIME PATIENT 13.9 SEC (12.2-14.7)
[2017-04-03 20:38] LABS: ALANINE AMINOTRANSFERASE 15 U/L (0-55); ALBUMIN 3.4 GM/DL (3.2-4.5); AMYLASE 36 U/L (25-125); ANION GAP 10 MMOL/L (5-14); ASPARTATE AMINO TRANSFERASE 26 U/L (5-34); BILIRUBIN,TOTAL 0.5 MG/DL (0.1-1.0); BLOOD UREA NITROGEN 25 MG/DL (7-18); BUN/CREATININE RATIO 14; CALCIUM 9.3 MG/DL (8.5-10.1); CARBON DIOXIDE 19 MMOL/L (21-32); CHLORIDE 110 MMOL/L (98-107); CREATINE KINASE 91 U/L (30-200); CREATININE SERUM 1.78 MG/DL (0.60-1.30); GFR ESTIMATED 37; GLUCOSE 97 MG/DL (70-105); LIPASE 21 U/L (8-78); POTASSIUM 4.5 MMOL/L (3.6-5.0); SODIUM 139 MMOL/L (135-145); TOTAL PROTEIN 5.8 GM/DL (6.4-8.2)
[2017-04-03 20:44] LABS: TROPONIN I < 0.30 NG/ML (<0.30)
[2017-04-03] MEDS ORDERED: LACTATED RINGERS 1,000 ML IV ONE (20:47)
--- NOTE | 2017-04-03 20:48 | Diagnostic Imaging Report ---
PATIENT HISTORY: Presyncope. Burning sensation in hands and arms. TECHNIQUE: Noncontrast axial CT of the head. COMPARISON: None. FINDINGS: The ventricles and cortical sulci are diffusely prominent. There is no midline shift or mass effect identified. There is no extra axial or intraparenchymal hemorrhage seen. Focal areas of decreased attenuation are seen in the subcortical and periventricular white matter. These likely represent chronic small vessel ischemic changes. There is a focus of hypoattenuation in the left insular region, likely old lacunar infarct. The bony calvarium is intact. The paranasal sinuses are clear. IMPRESSION: 1. No acute intracranial hemorrhage. No focal mass. No CT evidence of acute territorial ischemia. 2. Nonspecific white matter changes most likely representing small vessel ischemic disease. 3. Generalized parenchymal volume loss. Dictated by: Dictated on workstation # [id number]
--- NOTE | 2017-04-03 20:50 | Diagnostic Imaging Report ---
INDICATION: . Chest pain with shortness of air. TECHNIQUE: Single frontal view of the chest. COMPARISON: 08/10/2015 FINDINGS: Lung volumes are normal. No focal consolidation is seen. No pleural effusion or pneumothorax is seen. Sternotomy wires and post CABG changes are noted. There is mild cardiomegaly. Degenerative changes are noted in the right shoulder with chronic right rotator cuff injury. IMPRESSION: No acute pulmonary abnormality is seen. Dictated by: Dictated on workstation # [id number]
[2017-04-03 22:09] LABS: BILIRUBIN,URINE NEGATIVE (NEGATIVE); KETONES,URINE 1+ (NEGATIVE); LEUKOCYTE ESTERASE ,URINE 1+ (NEGATIVE); NITRITE,URINE NEGATIVE (NEGATIVE); PH,URINE 6.5 (5-9); PROTEIN,URINE NEGATIVE (NEGATIVE); UROBILINOGEN,URINE 1 MG/DL (NORMAL)
[2017-04-03 22:21] LABS: HYALINE CASTS, URINE 25-50 /LPF; SQUAMOUS EPITHELIAL CELL,UR 0-2 /HPF; WBC,URINE 0-2 /HPF
[2017-04-03 23:10] VITALS: BP 143/84
== END 2017-04-03 23:10 | disposition home or self-care (01) ==
LOC: EDUNIT# 19:50 → ER 19:51
DX: R07.9 Chest pain, unspecified (principal); E86.0 Dehydration; G47.30 Sleep apnea, unspecified; I25.10 Atherosclerotic heart disease of native coronary artery without angina pectoris; F41.9 Anxiety disorder, unspecified; F32.9 Major depressive disorder, single episode, unspecified; Z79.82 Long term (current) use of aspirin; Z87.19 Personal history of other diseases of the digestive system; Z95.1 Presence of aortocoronary bypass graft; Z95.5 Presence of coronary angioplasty implant and graft
CPT/HCPCS: 36415; 70450; 71010; 80053; 81000; 82150; 82550; 82553; 82962; 83690; 83735; 83880; 84484; 85025; 85610; 85730; 93005; 93041

== ENCOUNTER → 2017-06-28 | Outpatient (CLI) | payer BC ==
[~2017-06-28] MED LIST changes: +ACHD5005 PO; +BUPR100T8 PO; +CHOL10003 PO; -HYDR-3812 PO; +NAPR-915 PO; -NAPR500T4 PO
--- NOTE | 2017-06-28 14:50 | Diagnostic Imaging Report ---
INDICATION: Injury to the right arm with bulging of the bicep muscle. Sonographic interrogation of the bicep muscle was performed. FINDINGS: There appears to be a large complex fluid collection at this location measuring 6.1 x 3.2 x 3.8 cm. This is most consistent with a large hematoma. The bicep muscle and tendon may be retracted. Findings are concerning for biceps tendon rupture. No internal vascularity to the area of complexity is identified. IMPRESSION: Large complex fluid collection at the area of fullness in the right bicep muscle, suggestive of a hematoma. Features are concerning for biceps tendon rupture or biceps muscle injury. Further evaluation with MRI could be performed for better characterization, if clinically indicated. Dictated by: Dictated on workstation # [id number]
== END ==
LOC: RAD 13:12
PROVIDERS: ATTEND Nurse Practitioner Family
DX: S49.91XA Unspecified injury of right shoulder and upper arm, initial encounter (principal); M62.89 Other specified disorders of muscle
CPT/HCPCS: 76881

== ENCOUNTER 2018-03-18 11:53 | Outpatient (CLI) | payer BC ==
[~2018-03-18] VITALS: Ht 182.9 cm; Wt 65.8 kg
[~2018-03-18 11:53] MED LIST changes: +TRAZ-189 PO; -TRAZ-28 PO
[2018-03-19] MEDS ORDERED: BUPR150T20 PO (13:08)
[2018-03-19] MEDS ORDERED: MELA1TAB27 PO (13:08)
[2018-03-19] MEDS ORDERED: ASPI-983 PO (13:08)
[2018-03-19] MEDS ORDERED: FLUT9.9S NSEACH (13:08)
== END 2018-03-18 15:00 | disposition home or self-care (01) ==
LOC: PREOP 11:53
PROVIDERS: ATTEND Surgery
DX: Z01.818 Encounter for other preprocedural examination (principal)

== ENCOUNTER 2018-03-21 06:03 | Day surgery (SDC) | payer BC ==
[2018-03-21] VITALS (13 sets, daily range): BP systolic 124–197; BP diastolic 53–108
[~2018-03-21] VITALS: Ht 182.9 cm; Wt 61.7 kg
[~2018-03-21 06:03] MED LIST changes: +ASPI-983 PO; +BUPR150T20 PO; +FLUT9.9S NSEACH; +MELA1TAB27 PO
[2018-03-21] MEDS ORDERED: LACTATED RINGERS 1,000 ML IV PRN (06:31)
[2018-03-21] MEDS ORDERED: VANCOMYCIN INJECTION 1,000 MG in NS (IVPB) 250 ML IV ONE (06:45)
[2018-03-21 06:52] LABS: BASOPHILS % (AUTO) 1 % (0-10); EOSINOPHILS # (AUTO) 0.6 10^3/uL (0.0-0.3); EOSINOPHILS % (AUTO) 9 % (0-10); HEMATOCRIT 30 % (40-54); HEMOGLOBIN 9.7 G/DL (13.3-17.7); LYMPHOCYTES # (AUTO) 2.4 X 10^3 (1.0-4.0); LYMPHOCYTES % (AUTO) 36 % (12-44); MEAN CORPUSCULAR HEMOGLOBIN 30 PG (25-34); MEAN CORPUSCULAR HGB CONC 32 G/DL (32-36); MEAN CORPUSCULAR VOLUME 93 FL (80-99); MEAN PLATELET VOLUME 10.1 FL (7.4-10.4); MONOCYTES # (AUTO) 0.7 X 10^3 (0.0-1.0); MONOCYTES % (AUTO) 10 % (0-12); NEUTROPHILS % (AUTO) 44 % (42-75); PLATELET COUNT 181 10^3/uL (130-400); RED CELL DISTRIBUTION WIDTH 15.4 % (10.0-14.5); WHITE BLOOD COUNT 6.8 10^3/uL (4.3-11.0)
[2018-03-21] MEDS ORDERED: ONDANSETRON 4 MG/2 ML (SDV) Z0FRAN ONE (07:02)
[2018-03-21] MEDS ORDERED: proPOfol 200 MG/20 ML (DIPRIVAN) VIAL IV ONE (07:02)
[2018-03-21] MEDS ORDERED: LIDOCAINE PF 2% 5 ML (XYLOCAINE) VIAL ONE (07:02)
[2018-03-21] MEDS ORDERED: ROCURONIUM 10 MG/ML 5 ML SYRINGE IV ONE (07:02)
[2018-03-21] MEDS ORDERED: SEVOFLURANE (ULTANE) 15 ML INHAL SOLN ONE ×7 (07:02→09:48)
[2018-03-21] MEDS ORDERED: DEXAMETHASONE 10 MG/ML (DECADRON) 1 ML VIAL ONE (07:02)
[2018-03-21] MEDS ORDERED: fentaNYL INJECTION 100 MCG/2 ML AMP ONE ×2 (07:02→10:17)
[2018-03-21] MEDS ORDERED: CYAN100021 PO (07:08)
[2018-03-21] MEDS ORDERED: BUP/EPI 0.5% 1:200,000 (SENSORCAINE) 30 ML VIAL ONE (07:22)
--- NOTE | 2018-03-21 07:51 | Progress Note-Pre Operative ---
Pre-Operative Progress Note H&P Reviewed The H&P was reviewed, patient examined and no changes noted. Date Seen by Provider: Feb 27, 2018 Time Seen by Provider: 11:05 Date H&P Reviewed: Mar 21, 2018 Time H&P Reviewed: 07:50 Pre-Operative Diagnosis: Left Ing Hernia AGUSTIN DOMINGUEZ MD Mar 21, 2018 07:51
[2018-03-21] MEDS ORDERED: GLYCOPYRROLATE 0.2 MG/ML (ROBINUL) 2 ML VIAL ONE (09:26)
[2018-03-21] MEDS ORDERED: NEOSTIGMINE 1 MG/ML 5 ML SYRINGE ONE (09:26)
[2018-03-21] MEDS ORDERED: morphine INJ 10 MG/ML 1ML (SYR OR VIAL) IVP ONE (10:15)
[2018-03-21] MEDS ORDERED: ONDANSETRON 4 MG/2 ML (SDV) Z0FRAN IVP PRN (10:15)
[2018-03-21] MEDS ORDERED: fentaNYL INJECTION 100 MCG/2 ML AMP IVP ONE (10:30)
--- NOTE | 2018-03-21 11:07 | Operative Report ---
Operative Report Date of Procedure/Surgery Mar 21, 2018 Surgeon (s) AGUSTIN DOMINGUEZ MD Boiler Repairman (s): N/A Post-Operative Diagnosis same Procedure Performed robotic assisted repair of left inguinal hernia with mesh Description of Procedure Anesthesia Type: General Estimated blood loss (mL): minimal Specimen(s) collected/removed none Description of the Procedure Indication for the procedure: This gentleman presented with a symptomatic, reducible left inguinal hernia. He was offered repair using minimally invasive technique with robotic assistance and mesh reinforcement. Informed consent was obtained after reviewing the operative details and complications of hematoma, cardiorespiratory dysfunction, infection of the mesh and recurrence of the hernia. Description of the procedure: He was placed supine on the operating table and general anesthesia induced. A gram of Ancef was administered intravenously as prophylaxis against wound infection. Sequential compression devices were placed around his legs, to minimize the risk of venous thrombosis. A Stout catheter was placed to decompress the bladder during surgery. It was removed at the end of the operation. Abdomen was prepared and draped in the usual sterile manner. Due to previous upper abdominal surgery, I elected to establish pneumoperitoneum using a Veress needle introduced over the left subcostal margin. Intra-abdominal pressure was maintained at 15 mmHg, using carbon dioxide insufflation. A 5 mm trocar was placed and anatomy visualized using the conventional, 30 laparoscope. Omentum was adherent to the undersurface of the upper midline scar. Under direct view, I placed an 8 mm trocar over the left side of the abdomen and took down the adhesions, allowing room to place a 12 mm trocar over the supraumbilical region. An additional 8 mm trocar was placed over the right side of the abdomen under direct view and we switched to the robotic system. The patient was then turned into steep Trendelenburg position, to displace loops of bowel out of the pelvis. The robotic system was then docked in place. An indirect left inguinal hernia containing the apex of the sigmoid colon was confirmed. The colon was gently by sharp dissection allowing it to retract back into the left lower quadrant. Peritoneum was incised laterally, entering the preperitoneal space. Dissection was continued medially, displaying Carl's ligament. The hernia sac along with a lipoma of the cord was reduced completely out of the inguinal canal, revealing a defect in the transversalis fascia measuring at least 3 cm in diameter. It was approximated using a 2-0V LOC suture with robotic assistance, without constricting the cord structures. A polypropylene mesh, measuring 15.6 by 10 cm in size, was introduced into the preperitoneal space and secured to Carl's ligament and the lateral abdominal muscles using 2-0 Vicryl sutures with robotic assistance. Hemostasis was satisfactory. Peritoneum was then reconstituted using a combination of 2-0V LOC and 2-0 Vicryl sutures with robotic assistance. The redundant sac was used to buttress the peritoneal closure. Pneumoperitoneum was deflated and the trocars were removed. The fascia over each of the incisions was closed using #1 Vicryl. Skin incisions were closed using 4-0 Vicryl, in a subcuticular fashion. 0.5 percent Marcaine with epinephrine was infiltrated along the incisions, both preemptively and at the conclusion of the operation. He tolerated the procedure well, was extubated in the operating room and taken to the recovery room in a stable condition. Findings of the Procedure See op report Allergies and Home Medications Allergies Coded Allergies: Penicillins (Unverified Allergy, Mild, ITCHING, 11/11/15) Vrtpbld-Tzd-Lik Reductase Inhibitor (Verified Allergy, Unknown, 01/22/11) morphine (Verified Allergy, Unknown, 01/22/11) Home Medications Aspirin 81 Mg Tablet.dr, 81 MG PO DAILY, (Reported) Bupropion HCl 150 Mg Tablet.er, 150 MG PO BID, (Reported) Cyanocobalamin (Vitamin B-12) 1,000 Mcg/15 Ml Liquid, 1,000 MCG PO DAILY, ( Reported) Fluticasone Propionate 9.9 Ml Covert.susp, 1 SPRAY NSEACH DAILY, (Reported) 1 SPRAY EACH NARE DAILY Melatonin/Pyridoxine HCl (B6) 1 Each Tablet, 3 MG PO HS, (Reported) Naproxen 500 Mg Tablet, 500 MG PO BID, (Reported) Omeprazole 20 Mg Tablet.dr, 20 MG PO BID, (Reported) Oxybutynin Chloride 5 Mg Tab.er.24, 10 MG PO HS, (Reported) take 2 (5mg) tabs Tamsulosin HCl 0.4 Mg Cap, 0.4 MG PO HS, (Reported) Patient Home Medication List Home Medication List Reviewed: Yes AGUSTIN DOMINGUEZ MD Mar 21, 2018 11:07
[2018-03-21] MEDS ORDERED: ACHD5005 PO (11:10)
--- NOTE | 2018-03-21 11:11 | Discharge Inst-Simple/Standard ---
Discharge Inst-Standard Discharge Medications New, Converted or Re-Newed RX: RX on Chart Patient Instructions/Follow Up Plan of Care/Instructions/FU: Band-Aids off prior to discharge. Follow-up in 3 weeks. Activity as Tolerated: No Goal: no lifting over 10 pounds Discharge Diet: No Restrictions AGUSTIN DOMINGUEZ MD Mar 21, 2018 11:11
[2018-03-21] MEDS ORDERED: PATIENT MAY USE OWN MEDS, ALL PO SCH (11:15)
[2018-03-21] MEDS: fentaNYL INJECTION 100 MCG/2 ML AMP IV PRN (11:42)
[2018-03-21] MEDS: ONDANSETRON 4 MG/2 ML (SDV) Z0FRAN IVP PRN (12:46)
[2018-03-21] MEDS ORDERED: HYDROcodone/APAP 5 MG/325 MG (LORTAB) TAB ONE (12:50)
[2018-03-21] MEDS: HYDROcodone/APAP 5 MG/325 MG (LORTAB) TAB PO PRN ×2 (12:54→20:08)
[2018-03-21] MEDS: PANTOPRAZOLE 20 MG TABLET (PROTONIX) PO SCH (20:08)
[2018-03-21] MEDS ORDERED: MELATONIN 3 MG TABLET PO SCH (21:00)
[2018-03-21] MEDS ORDERED: buPROPion SR 150 MG (WELLBUTRIN SR) TAB PO SCH (21:00)
[2018-03-21] MEDS ORDERED: TAMSULOSIN 0.4 MG (FLOMAX) CAP PO SCH (21:00)
[2018-03-22] VITALS (7 sets, daily range): BP systolic 134–148; BP diastolic 68–78
[2018-03-22] MEDS: HYDROcodone/APAP 5 MG/325 MG (LORTAB) TAB PO PRN ×2 (01:03→06:06)
[2018-03-22] MEDS: ONDANSETRON 4 MG/2 ML (SDV) Z0FRAN IVP PRN (01:13)
[2018-03-22] MEDS: fentaNYL INJECTION 100 MCG/2 ML AMP IV PRN (03:52)
[2018-03-22] MEDS: PANTOPRAZOLE 20 MG TABLET (PROTONIX) PO SCH (06:06)
[2018-03-22] MEDS ORDERED: FLUTICASONE NASAL SPRAY (FLONASE) 16 GM BTL NS SCH (09:00)
--- NOTE | 2018-03-22 11:52 | Anesthesia-General Post-Op ---
General Patient Condition Mental Status/LOC: Same as Preop Cardiovascular: Satisfactory Nausea/Vomiting: Present Respiratory: Satisfactory Pain: Controlled Complications: Absent Post Op Complications Complications None Follow Up Care/Instructions Patient Instructions None needed. Anesthesia/Patient Condition Patient Condition Patient is doing well this am. He did complain of PONV for a short time after waking up, but it did resolve. VSS. No complications reported per nursing. RON PEREYRA CRNA Mar 22, 2018 11:51
== END 2018-03-22 08:55 | disposition home or self-care (01) ==
LOC: SDC 06:03 → ICU 11:06 → SDC 03-22 08:55
PROVIDERS: ATTEND Surgery
DX: K40.90 Unilateral inguinal hernia, without obstruction or gangrene, not specified as recurrent (principal); Z11.2 Encounter for screening for other bacterial diseases; E11.22 Type 2 diabetes mellitus with diabetic chronic kidney disease; I12.9 Hypertensive chronic kidney disease with stage 1 through stage 4 chronic kidney disease, or unspecified chronic kidney disease; N18.3 Chronic kidney disease, stage 3 (moderate); E11.40 Type 2 diabetes mellitus with diabetic neuropathy, unspecified; I48.0 Paroxysmal atrial fibrillation; I25.10 Atherosclerotic heart disease of native coronary artery without angina pectoris; I65.29 Occlusion and stenosis of unspecified carotid artery; M48.061 Spinal stenosis, lumbar region without neurogenic claudication; G47.33 Obstructive sleep apnea (adult) (pediatric); K21.9 Gastro-esophageal reflux disease without esophagitis; K58.9 Irritable bowel syndrome, unspecified; Z79.899 Other long term (current) drug therapy; Z87.891 Personal history of nicotine dependence; Z95.1 Presence of aortocoronary bypass graft; Z86.73 Personal history of transient ischemic attack (TIA), and cerebral infarction without residual deficits; Z79.82 Long term (current) use of aspirin
CPT/HCPCS: 36415; 85025; 87081; 94664

== ENCOUNTER → 2019-01-12 | Outpatient (CLI) | payer BC ==
[~2019-01-12] MED LIST changes: +CYAN100021 PO; -TRAZ-189 PO; +TRAZ-222 PO
--- NOTE | 2019-01-12 20:23 | Diagnostic Imaging Report ---
PROCEDURE: MR imaging of the brain without contrast. TECHNIQUE: Multiplanar, multisequence MR imaging of the brain was performed without contrast. DATE: January 12, 2019. COMPARISON: CT head April 03, 2017. MRI brain December 31, 2014. HISTORY: 83-year-old male, history of recent fall. Weakness and headache. FINDINGS: There is no diffusion restriction. There is proportional prominence of the ventricles and CSF spaces compatible with severe cerebral volume loss. 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 There is no identified abnormal extra-axial fluid collection. There are areas of T2 and FLAIR hyperintense signal abnormality in the periventricular and subcortical white matter as well as the joel that likely reflects advanced changes of chronic small vessel ischemic disease. There is a remote prior lacunar infarct in the right ruby radiata. There is a prominent perivascular space lateral to the left basal ganglia. There is no evidence to suggest acute intracranial hemorrhage. There is no mass effect or midline shift. There is normal aeration of the visualized paranasal sinuses and mastoid air cells. IMPRESSION: 1. No acute intracranial abnormality. 2. Severe cerebral volume loss with extensive changes of chronic small vessel ischemic disease and remote prior lacunar infarct in the right ruby radiata. Dictated by: Dictated on workstation # [id number]
== END ==
LOC: RAD 15:15
PROVIDERS: ATTEND Family Medicine
DX: G93.89 Other specified disorders of brain (principal); I67.82 Cerebral ischemia; R53.1 Weakness; R29.6 Repeated falls
CPT/HCPCS: 70551

== ENCOUNTER 2019-04-02 12:40 | Outpatient (RCR) | payer BC ==
[2019-03-25] MEDS: FERRIC CARBOXYMALTOSE INJ 750 MG in NS (IVPB) 250 ML IV SCH (13:10)
[2019-03-25 14:25] VITALS: BP 159/86
[~2019-04-02] VITALS: Ht 182.9 cm; Wt 61.7 kg
[2019-04-02 12:40] VITALS: BP 131/64
[2019-04-02] MEDS: FERRIC CARBOXYMALTOSE INJ 750 MG in NS (IVPB) 250 ML IV SCH (13:10)
== END 2019-04-02 13:36 | disposition home or self-care (01) ==
LOC: SDC 12:40
PROVIDERS: ATTEND Nurse Practitioner Family
DX: D50.9 Iron deficiency anemia, unspecified (principal); N18.3 Chronic kidney disease, stage 3 (moderate)
CPT/HCPCS: 96365

== ENCOUNTER 2021-03-31 11:00 | Inpatient (IN) | payer BC ==
[~2021-03-31] VITALS: Ht 177.8 cm; Wt 58.9 kg
[~2021-03-31 11:00] MED LIST changes: +ASPI-1238 PO; -ASPI-983 PO; -BUPR150T20 PO; +BUPR150T28 PO; +ESCI20TA39 PO; -ESCI20TA45 PO; +OXYB-52 PO; -OXYB5TAB PO; -TAMS0.4C98 PO; +TMSL.4C PO; -TRAZ-222 PO; +TRZ50T PO
[2021-03-31] MEDS ORDERED: NALOXONE 0.4 MG/ML 1 ML (NARCAN) VIAL IV ONE (11:15)
[2021-03-31] MEDS ORDERED: LACTATED RINGERS 1,000 ML IV SCH (11:15)
--- NOTE | 2021-03-31 11:19 | ED General ---
General Chief Complaint: General Problems/Pain Stated Complaint: UNRESPONSIVE Nursing Triage Note: PT BROGUHT IN BY [facility] FROM HOME WITH COMPLAINT OF UNRESPONSIVE. PT WAS FOUND DOWN THIS MORNING BY SISTER IN LAW. LKWT WAS LAST NIGHT. PT HAS GARBLED SPEECH. Source of Information: EMS, Family Exam Limitations: No Limitations History of Present Illness Date Seen by Provider: Mar 31, 2021 Time Seen by Provider: 11:14 Initial Comments To ER by EMS from home with reports of being found by family this morning unresponsive. They last saw him last night upright walking and talking. They do state that he has had some stumbling here lately. He does not have any children and his 5 years ago. Takqmo-jq-rny has power of trust and estates attorney and she is at the bedside. They are not sure what happened to him, typically he is quite active. She states that recently, this past Saturday, they were at [facility] and he told her he had to go check on something and instructed her to keep shopping. When they finished they got to the car and he took a nitroglycerin. She believes he has been having chest pain but he has not mentioned it. He does take hydrocodone 10 mg tablets she states and has threatened suicide for years and states that could also be a possibility. Timing/Duration: 12-24 Hours, 1-2 Days Severity: Moderate Associated Systoms: Denies Symptoms Allergies and Home Medications Allergies Coded Allergies: Penicillins (Unverified Allergy, Mild, ITCHING, 11/11/15) Cbaiuzu-Aet-Fdq Reductase Inhibitor (Verified Allergy, Unknown, 01/22/11) morphine (Verified Allergy, Unknown, 01/22/11) Patient Home Medication List Home Medication List Reviewed: Yes Aspirin (Aspirin EC) 81 Mg Tablet.dr, 81 MG PO DAILY, (Reported) Entered as Reported by: SAM CARROLL on 03/19/18 1308 Bupropion HCl (Bupropion HCl Sr) 150 Mg Tablet.er, 150 MG PO BID, (Reported) Entered as Reported by: SAM CARROLL on 03/19/18 1308 Cyanocobalamin (Vitamin B-12) (Liquid B12) 1,000 Mcg/15 Ml Liquid, 1,000 MCG PO DAILY, (Reported) Entered as Reported by: ROBYN JIMÉNEZ on 03/21/18 0708 Fluticasone Propionate (Flonase Allergy Relief) 9.9 Ml [place].susp, 1 SPRAY NSEACH DAILY, (Reported) Entered as Reported by: SAM CARROLL on 03/19/18 1308 Hydrocodone Bit/Acetaminophen (Lortab 5 Mg Tablet) 1 Tab Tab, 1 TAB PO Q6H PRN for PAIN-MODERATE Prescribed by: AGUSTIN DOMINGUEZ on 03/21/18 1110 Melatonin/Pyridoxine HCl (B6) (Melatonin 3 mg Tablet) 1 Each Tablet, 3 MG PO HS, (Reported) Entered as Reported by: SAM CARROLL on 03/19/18 1308 Naproxen (Naproxen) 500 Mg Tablet, 500 MG PO BID, (Reported) Entered as Reported by: SAM CARROLL on 11/03/15 0910 Omeprazole (Omeprazole) 20 Mg Tablet.dr, 20 MG PO BID, (Reported) Entered as Reported by: SAM CARROLL on 11/03/15 0845 Oxybutynin Chloride (Oxybutynin Chloride ER) 5 Mg Tab.er.24, 10 MG PO HS, (Reported) Entered as Reported by: SAM CARROLL on 11/03/15 0845 Tamsulosin HCl (Flomax) 0.4 Mg Cap, 0.4 MG PO HS, (Reported) Entered as Reported by: SAM CARROLL on 11/03/15 0910 Review of Systems Review of Systems Constitutional: see HPI, other (unresponsive and unable to obtain) Past Cxqjdjm-Wxlzxu-Kzgmfm Hx Patient Social History Tobacco Use?: No Use of E-Cig and/or Vaping dev: No Substance use?: No Alcohol Use?: No Pt feels they are or have been: No Seasonal Allergies Seasonal Allergies: No Past Medical History Surgeries: Yes (hiatal hernia, vagus nerve repair, quad bypass, aortic aneurysm repair,) CABG, Coronary Stent, Gallbladder Respiratory: Yes (refuses to use cpap machine) Sleep Apnea Currently Using CPAP: No Currently Using BIPAP: No Cardiac: Yes (quad bypass, ) Atrial Fibrillation, Coronary Artery Disease Neurological: Yes Stroke Reproductive Disorders: No Genitourinary: Yes Benign Prostatic Hyperpl Gastrointestinal: No (dumping syndrome) Irritable Bowel Musculoskeletal: Yes (spinal stenosis) Arthritis, Chronic Back Pain Endocrine: No (hypoglycemia) HEENT: Yes Hearing Impairment: Hard of Hearing Cancer: No Psychosocial: Yes Anxiety, Depression Integumentary: No Blood Disorders: No Physical Exam Vital Signs Vital Signs - First Documented 03/31/21 11:01 Pulse 92 Resp 11 B/P (MAP) 180/94 (122) Pulse Ox 94 O2 Delivery Room Air Capillary Refill : Less Than 3 Seconds Height, Weight, BMI Height: 6'0.00" Weight: 136lbs. 0.0oz. 61.771254pt; 18.00 BMI Method:Stated General Appearance: Cachetic, Thin, Other (Seated and cachectic. Vtytew-fk-dhw states that he is lost a tremendous amount of weight recently. He is unresponsive with a respiratory rate of 6-10, oxygen 92% on room air. Pupils are pinpoint at about 1 mm. We will try a little Narcan for this reason. Currently he gets a GCS score of 1 point for eyes, one-point for verbal, 4 points for motor with a GCS total of 6. However at 85 and DNR status I do not think intubation is a good idea.) Eyes: Bilateral Eye Normal Inspection, Bilateral Eye PERRL, Bilateral Eye EOMI HEENT: PERRL/EOMI, Pharynx Normal Neck: Full Range of Motion, Normal Inspection Respiratory: No Accessory Muscle Use, No Respiratory Distress Cardiovascular: Regular Rate, Rhythm, Normal Peripheral Pulses Gastrointestinal: Normal Bowel Sounds, Non Tender, Soft Extremity: No Calf Tenderness, Other (Bruising to the dorsal aspect left foot) Neurologic/Psychiatric: Other (As mentioned he has a GCS of 6) Skin: Normal Color, Warm/Dry Focused Exam Lactate Level 03/31/21 11:28: Lactic Acid Level 1.30 Lactic Acid Level Laboratory Tests Test 03/31/21 11:28 Lactic Acid Level 1.30 MMOL/L (0.50-2.00) Progress/Results/Core Measures Suspected Sepsis SIRS Temperature: Pulse: 92 Respiratory Rate: 11 Laboratory Tests 03/31/21 11:05: White Blood Count 12.9H Blood Pressure 180 /94 Mean: 122 03/31/21 11:28: Lactic Acid Level 1.30 Laboratory Tests 03/31/21 11:05: Creatinine 1.59H, INR Comment 1.0, Platelet Count 167, Total Bilirubin 1.0 Results/Orders Lab Results Laboratory Tests Test 03/31/21 11:05 03/31/21 11:23 03/31/21 11:28 Range/Units White Blood Count 12.9 H 4.3-11.0 10^3/uL Red Blood Count 3.99 L 4.30-5.52 10^6/uL Hemoglobin 12.1 L 13.3-17.7 g/dL Hematocrit 37 L 40-54 % Mean Corpuscular Volume 93 80-99 fL Mean Corpuscular Hemoglobin 30 25-34 pg Mean Corpuscular Hemoglobin Concent 33 32-36 g/dL Red Cell Distribution Width 15.4 H 10.0-14.5 % Platelet Count 167 130-400 10^3/uL Mean Platelet Volume 10.2 9.0-12.2 fL Immature Granulocyte % (Auto) 1 % Neutrophils (%) (Auto) 75 42-75 % Lymphocytes (%) (Auto) 15 12-44 % Monocytes (%) (Auto) 9 0-12 % Eosinophils (%) (Auto) 0 0-10 % Basophils (%) (Auto) 0 0-10 % Neutrophils # (Auto) 9.6 H 1.8-7.8 10^3/uL Lymphocytes # (Auto) 2.0 1.0-4.0 10^3/uL Monocytes # (Auto) 1.2 H 0.0-1.0 10^3/uL Eosinophils # (Auto) 0.0 0.0-0.3 10^3/uL Basophils # (Auto) 0.0 0.0-0.1 10^3/uL Immature Granulocyte # (Auto) 0.1 0.0-0.1 10^3/uL Prothrombin Time 13.7 12.2-14.7 SEC INR Comment 1.0 0.8-1.4 Activated Partial Thromboplast Time 30 24-35 SEC Sodium Level 142 135-145 MMOL/L Potassium Level 3.8 3.6-5.0 MMOL/L Chloride Level 107 98-107 MMOL/L Carbon Dioxide Level 22 21-32 MMOL/L Anion Gap 13 5-14 MMOL/L Blood Urea Nitrogen 19 H 7-18 MG/DL Creatinine 1.59 H 0.60-1.30 MG/DL Estimat Glomerular Filtration Rate 41 BUN/Creatinine Ratio 12 Glucose Level 133 H 70-105 MG/DL Calcium Level 9.7 8.5-10.1 MG/DL Corrected Calcium 9.7 8.5-10.1 MG/DL Magnesium Level 2.1 1.6-2.4 MG/DL Total Bilirubin 1.0 0.1-1.0 MG/DL Aspartate Amino Transf (AST/SGOT) 59 H 5-34 U/L Alanine Aminotransferase (ALT/SGPT) 31 0-55 U/L Alkaline Phosphatase 46 40-136 U/L Total Creatine Kinase 2145 H 30-200 U/L Myoglobin 3525.2 H 10.0-92.0 NG/ML Troponin I 0.159 H <0.028 NG/ML Total Protein 6.5 6.4-8.2 GM/DL Albumin 4.0 3.2-4.5 GM/DL Salicylates Level < 5.0 L 5.0-20.0 MG/DL Acetaminophen Level < 10 L 10-30 UG/ML Serum Alcohol < 10 <10 MG/DL Urine Color YELLOW Urine Clarity CLEAR Urine pH 6.0 5-9 Urine Specific [place] 1.025 H 1.016-1.022 Urine Protein TRACE H NEGATIVE Urine Glucose (UA) NEGATIVE NEGATIVE Urine Ketones NEGATIVE NEGATIVE Urine Nitrite NEGATIVE NEGATIVE Urine Bilirubin NEGATIVE NEGATIVE Urine Urobilinogen 0.2 < = 1.0 MG/DL Urine Leukocyte Esterase NEGATIVE NEGATIVE Urine RBC (Auto) 1+ H NEGATIVE Urine RBC RARE /HPF Urine WBC 0-2 /HPF Urine Squamous Epithelial Cells 0-2 /HPF Urine Crystals NONE /LPF Urine Bacteria NEGATIVE /HPF Urine Casts NONE /LPF Urine Mucus NEGATIVE /LPF Urine Culture Indicated NO Urine Opiates Screen POSITIVE H NEGATIVE Urine Oxycodone Screen POSITIVE H NEGATIVE Urine Methadone Screen NEGATIVE NEGATIVE Urine Propoxyphene Screen NEGATIVE NEGATIVE Urine Barbiturates Screen NEGATIVE NEGATIVE Ur Tricyclic Antidepressants Screen POSITIVE H NEGATIVE Urine Phencyclidine Screen NEGATIVE NEGATIVE Urine Amphetamines Screen NEGATIVE NEGATIVE Urine Methamphetamines Screen NEGATIVE NEGATIVE Urine Benzodiazepines Screen NEGATIVE NEGATIVE Urine Cocaine Screen NEGATIVE NEGATIVE Urine Cannabinoids Screen NEGATIVE NEGATIVE Lactic Acid Level 1.30 0.50-2.00 MMOL/L My Orders Orders - CAILIN FORMAN [employer] Cbc With Automated Diff (03/31/21 11:11) Magnesium (03/31/21 11:11) Chest 1 View, Ap/Pa Only (03/31/21 11:11) Ekg Tracing (03/31/21 11:11) Comprehensive Metabolic Panel (03/31/21 11:11) Myoglobin Serum (03/31/21 11:11) Protime With Inr (03/31/21 11:11) Partial Thromboplastin Time (03/31/21 11:11) O2 (03/31/21 11:11) Monitor-Rhythm Ecg Trace Only (03/31/21 11:11) Lipid Panel (04/01/21 06:00) Ed Iv/Invasive Line Start (03/31/21 11:11) Creatine Kinase (03/31/21 11:11) Troponin I Brittani (03/31/21 11:11) Blood Culture (03/31/21 11:11) Sputum Culture (03/31/21 11:11) Urinalysis (03/31/21 11:11) Urine Culture (03/31/21 11:11) Vital Signs Adult Sepsis Patie Q15M (03/31/21 11:11) Remove Rings In Anticipation O (03/31/21 11:11) Lactic Acid Analyzer (03/31/21 11:11) Ct Head/Cervical Spine Wo (03/31/21 11:11) Pelvis (03/31/21 11:11) Alcohol (03/31/21 11:11) Drug Screen Stat (Urine) (03/31/21 11:11) Salicylate (03/31/21 11:11) Acetaminophen (03/31/21 11:11) Naloxone Injection (Narcan Injection) (03/31/21 11:15) Lactated Ringers (Lr 1000 Ml Iv Solution (03/31/21 11:15) Medications Given in ED Current Medications Medications Dose Ordered Sig/Paolo Route Start Time Stop Time Status Last Admin Dose Admin Naloxone HCl 0.4 mg ONCE ONCE IV 03/31/21 11:15 03/31/21 11:16 DC 03/31/21 11:22 0.4 MG Vital Signs/I&O 03/31/21 11:01 Pulse 92 Resp 11 B/P (MAP) 180/94 (122) Pulse Ox 94 O2 Delivery Room Air Capillary Refill : Less Than 3 Seconds Blood Pressure Mean: 122 Departure Communication (Admissions) 1258-he did have a significant increase in mental status and became quite restless after administration of 0.4 mg of Narcan. He does seem to be in rhabdomyolysis. I will admit to Dr. Farhad, DO NOT RESUSCITATE status, as needed Narcan, IV fluids and recheck of labs in the morning. NAME: SANJIV JACOBS REC#: [id number] PT STATUS: REG ER : 1935 PHYSICIAN: CAILIN FORMAN APRN ADMIT DATE: 03/31/21/ER Draft Date of Exam:03/31/21 CHEST 1 VIEW, AP/PA ONLY INDICATION: Chest pain. Single AP view of the chest is obtained with comparison made study of 04/03/2017 FINDINGS: There is air trapping bilaterally. Heart size and pulmonary vascularity are within normal limits. Extensive surgical findings again noted in the mediastinum. No consolidation or significant pleural fluid is seen. There is gaseous distention of bowel beneath the diaphragm. IMPRESSION: Emphysema without other evidence of acute abnormality. Dictated on workstation # [id number] Dict: 03/31/21 1138 Trans: 03/31/21 1140 [id number] Interpreted by: MELVIN JI MD Electronically signed by: NAME: SANJIV JACOBS [facility] REC#: [id number] PT STATUS: REG ER : 1935 PHYSICIAN: CAILIN FORMAN APRN ADMIT DATE: 03/31/21/ER Draft Date of Exam:03/31/21 CT HEAD/CERVICAL SPINE WO PROCEDURE: CT head and CT cervical spine without contrast. TECHNIQUE: Multiple contiguous axial images were obtained through the brain and cervical spine without the use of intravenous contrast. Sagittal and coronal reformations through the cervical spine were then performed. Auto Exposure Controls were utilized during the CT exam to meet ALARA standards for radiation dose reduction. INDICATION: Fall with head and neck pain. CT HEAD: COMPARISON: 04/03/2017 Ventricles and sulci are diffusely prominent. There is low-density deep white matter both hemispheres similar to previous study. Old lacunar infarction noted in the insular regions. There is no evidence of hemorrhage. There is no abnormal mass effect or shift of midline structures. Atherosclerotic calcifications are seen within the distal internal carotid and vertebral arteries. Shallow air-fluid level seen in the right maxillary sinus. IMPRESSION: Chronic findings in the brain without acute intracranial abnormality detected. There is mild fluid in the right maxillary sinus. CT cervical spine: CT cervical curvature and alignment are unremarkable. There is diffuse disc space narrowing with endplate spurring. Degenerative facet arthropathy is present. There is no evidence of an acute fracture or subluxation. No paraspinous hematoma is identified. IMPRESSION: Diffuse cervical spondylosis without CT evidence of acute cervical spinal abnormality. Dictated on workstation # [id number] Dict: 03/31/21 1204 Trans: 03/31/21 1211 [id number] Interpreted by: MELVIN JI MD Electronically signed by: Impression Primary Impression: Rhabdomyolysis Additional Impression: Opiate overdose Disposition: ADMITTED INPATIENT Condition: Stable Departure-Patient Inst. Referrals: DAINA MYLES MD (PCP/Family) Primary Care Physician CAILIN FORMAN [employer] Mar 31, 2021 11:19
[2021-03-31 11:21] LABS: BASOPHILS % (AUTO) 0 % (0-10); EOSINOPHILS % (AUTO) 0 % (0-10); HEMATOCRIT 37 % (40-54); HEMOGLOBIN 12.1 g/dL (13.3-17.7); LYMPHOCYTES % (AUTO) 15 % (12-44); MEAN CORPUSCULAR HEMOGLOBIN 30 pg (25-34); MEAN CORPUSCULAR HGB CONC 33 g/dL (32-36); MEAN CORPUSCULAR VOLUME 93 fL (80-99); MEAN PLATELET VOLUME 10.2 fL (9.0-12.2); MONOCYTES # (AUTO) 1.2 10^3/uL (0.0-1.0); MONOCYTES % (AUTO) 9 % (0-12); NEUTROPHILS # (AUTO) 9.6 10^3/uL (1.8-7.8); NEUTROPHILS % (AUTO) 75 % (42-75); PLATELET COUNT 167 10^3/uL (130-400); WHITE BLOOD COUNT 12.9 10^3/uL (4.3-11.0)
[2021-03-31 11:27] LABS: POTASSIUM 3.8 MMOL/L (3.6-5.0)
[2021-03-31 11:28] LABS: BILIRUBIN,URINE NEGATIVE (NEGATIVE); CLARITY,URINE CLEAR; COLOR,URINE YELLOW; GLUCOSE, URINE (UA) NEGATIVE (NEGATIVE); KETONES,URINE NEGATIVE (NEGATIVE); LEUKOCYTE ESTERASE ,URINE NEGATIVE (NEGATIVE); NITRITE,URINE NEGATIVE (NEGATIVE); PROTEIN,URINE TRACE (NEGATIVE)
[2021-03-31 11:29] LABS: CALCIUM 9.7 MG/DL (8.5-10.1); PROTHROMBIN TIME PATIENT 13.7 SEC (12.2-14.7)
[2021-03-31 11:30] LABS: TOTAL PROTEIN 6.5 GM/DL (6.4-8.2)
[2021-03-31 11:33] LABS: CREATININE SERUM 1.59 MG/DL (0.60-1.30)
[2021-03-31 11:34] LABS: ACETAMINOPHEN < 10 UG/ML (10-30); SALICYLATE < 5.0 MG/DL (5.0-20.0)
[2021-03-31 11:36] LABS: MAGNESIUM 2.1 MG/DL (1.6-2.4)
[2021-03-31 11:37] LABS: BACTERIA,URINE NEGATIVE /HPF; RBC,URINE RARE /HPF; SQUAMOUS EPITHELIAL CELL,UR 0-2 /HPF; WBC,URINE 0-2 /HPF
--- NOTE | 2021-03-31 11:41 | Diagnostic Imaging Report ---
INDICATION: Unresponsive. FINDINGS: Supine AP view of the abdomen is obtained. Aortic stent is noted. Overall bowel gas pattern is unremarkable as visualized. There is no evidence of pathologic abdominal calcification apart from atherosclerosis. Calcified phleboliths are seen bilaterally in the pelvis. IMPRESSION: Limited images of the abdomen reveal aortic stent without other unexpected radiopaque foreign body or acute abnormality. Dictated by: Dictated on workstation # [id number]
--- NOTE | 2021-03-31 11:41 | Diagnostic Imaging Report ---
INDICATION: Chest pain. Single AP view of the chest is obtained with comparison made study of 04/03/2017 FINDINGS: There is air trapping bilaterally. Heart size and pulmonary vascularity are within normal limits. Extensive surgical findings again noted in the mediastinum. No consolidation or significant pleural fluid is seen. There is gaseous distention of bowel beneath the diaphragm. IMPRESSION: Emphysema without other evidence of acute abnormality. Dictated by: Dictated on workstation # [id number]
[2021-03-31 11:45] LABS: AMPHETAMINE SCREEN, URINE NEGATIVE (NEGATIVE); BARBITURATE SCREEN URINE NEGATIVE (NEGATIVE); BENZODIAZEPINES SCREEN URINE NEGATIVE (NEGATIVE); CANNABINOID SCREEN, URINE NEGATIVE (NEGATIVE); COCAINE SCREEN URINE NEGATIVE (NEGATIVE); METHADONE STAT NEGATIVE (NEGATIVE); METHAMPHETAMINE SCREEN URINE S NEGATIVE (NEGATIVE); OPIATE SCREEN URINE POSITIVE (NEGATIVE); OXYCODONE STAT POSITIVE (NEGATIVE); PROPOXYPHENE STAT NEGATIVE (NEGATIVE); TRICYCLIC ANTIDEPRESSANTS SCRE POSITIVE (NEGATIVE)
--- NOTE | 2021-03-31 12:11 | Diagnostic Imaging Report ---
PROCEDURE: CT head and CT cervical spine without contrast. TECHNIQUE: Multiple contiguous axial images were obtained through the brain and cervical spine without the use of intravenous contrast. Sagittal and coronal reformations through the cervical spine were then performed. Auto Exposure Controls were utilized during the CT exam to meet ALARA standards for radiation dose reduction. INDICATION: Fall with head and neck pain. CT HEAD: COMPARISON: 04/03/2017 Ventricles and sulci are diffusely prominent. There is low-density deep white matter both hemispheres similar to previous study. Old lacunar infarction noted in the insular regions. There is no evidence of hemorrhage. There is no abnormal mass effect or shift of midline structures. Atherosclerotic calcifications are seen within the distal internal carotid and vertebral arteries. Shallow air-fluid level seen in the right maxillary sinus. IMPRESSION: Chronic findings in the brain without acute intracranial abnormality detected. There is mild fluid in the right maxillary sinus. CT cervical spine: CT cervical curvature and alignment are unremarkable. There is diffuse disc space narrowing with endplate spurring. Degenerative facet arthropathy is present. There is no evidence of an acute fracture or subluxation. No paraspinous hematoma is identified. IMPRESSION: Diffuse cervical spondylosis without CT evidence of acute cervical spinal abnormality. Dictated by: Dictated on workstation # [id number]
[2021-03-31] MEDS ORDERED: meTOprolol 5 MG/5 ML (LOPRESSOR) VIAL IV ONE (13:15)
[2021-03-31] MEDS ORDERED: LORazepam INJ 2 MG/ML (ATIVAN) VIAL ONE (13:42)
[2021-03-31] MEDS ORDERED: LORazepam INJ 2 MG/ML (ATIVAN) VIAL IVP PRN (13:45)
[2021-03-31] MEDS ORDERED: LORazepam INJ 2 MG/ML (ATIVAN) VIAL IVP ONE (14:45)
[2021-03-31 14:58] VITALS: BP 133/81
[2021-03-31] MEDS ORDERED: RT-ALBUTEROL/IPRATROPIUM 3 ML (DUONEB) VIAL INH PRN (15:00)
[2021-03-31] MEDS ORDERED: ARTIFICAL TEARS 0.4 ML UNIT DOSE (REFRESH PLUS) OU PRN (15:00)
[2021-03-31] MEDS ORDERED: NALOXONE 0.4 MG/ML 1 ML (NARCAN) VIAL IV PRN (15:00)
[2021-03-31] MEDS ORDERED: ONDANSETRON 4 MG/2 ML (SDV) Z0FRAN IVP PRN (15:00)
[2021-03-31] MEDS ORDERED: diphenhydrAMINE 50 MG/ML INJ (BENADRYL) IV PRN (15:00)
[2021-03-31] MEDS ORDERED: ACETAMINOPHEN 650 MG SUPP (TYLENOL) PR PRN (15:00)
[2021-03-31] MEDS ORDERED: BISACODYL 10 MG SUPP (DULCOLAX) PR PRN (15:00)
[2021-03-31] MEDS ORDERED: PROMETHAZINE INJ 25 MG/ML (PHENERGAN) AMP IVP PRN (15:00)
--- NOTE | 2021-03-31 15:04 | History & Physical ---
History of Present Illness History of Present Illness Reason for visit/HPI PT IS AN 85 Y/O MALE WHO IS KNOWN TO ME FROM CLINIC. HE PRESENTED TO THE HOSPITAL BY AMBULANCE AFTER BEING FOUND DOWN AT HOME BY HIS [id number], SANJUANITA. HIS [id number], SANJUANITA AND IRAIDA REPORT THAT HE CALLED THEM OVER TO HIS HOUSE YESTERDAY AND WANTED TO MAKE SURE THAT IRAIDA WOULD BE OKAY WHEN HE . THEN HIS [id number] SAW HIS LIGHTS ON AND WENT OVER TO CHECK ON HIM THIS MORNING AND HE WAS DOWN ON THE GROUND, LAID OUT OVER THE LEGS OF A ROLLING CHAIR WITH HIS HEAD ON THE FLOOR BELOW THE CHAIR. HE HAD KEYS IN A PADLOCK LIKE HE WAS TRYING TO OPEN THE LOCK (HE WAS IN HIS PREVIOUS GUN ROOM AND THE PADLOCK WAS ON A GUN SAFE. HE IS MINIMALLY RESPONSIVE, SEEMED TO KNOW THIS ROUGHER FOR CEMENT WHEN I STATED TO HIM "DON, THIS IS DR. MYLES". HE INDICATED THAT HE WAS IN PAIN AND WHEN I INFORMED HE WE WOULD BE KEEPING HIM COMFORTABLE AND LOOKING AT COMFORT CARE IN THE HOSPITAL, HE GRUNTED A RESPONSE IN THE AFFIRMATIVE. HIS SISTER IN LAWS WERE IN AGREEMENT WITH THE PLAN FOR COMFORT CARE. Date of Admission Mar 31, 2021 at 13:24 Date Seen by a Provider: Mar 31, 2021 Time Seen by a Provider: 14:30 I consulted on this patient on 03/31/21 14:57 Attending Physician Daina Myles MD Admitting Physician Daina Myles MD Consult Allergies and Home Medications Allergies Coded Allergies: Penicillins (Unverified Allergy, Mild, ITCHING, 11/11/15) Jhznuvn-Omq-Tin Reductase Inhibitor (Verified Allergy, Unknown, 01/22/11) morphine (Verified Allergy, Unknown, 01/22/11) Patient Home Medication List Home Medication List Reviewed: Yes Aspirin (Aspirin EC) 81 Mg Tablet.dr, 81 MG PO DAILY, (Reported) Entered as Reported by: SAM CARROLL on 03/19/18 7891 Last Action: Held Bupropion HCl (Bupropion HCl Sr) 150 Mg Tablet.er, 150 MG PO BID, (Reported) Entered as Reported by: SAM CARROLL on 03/19/18 5114 Last Action: Held Cyanocobalamin (Vitamin B-12) (Liquid B12) 1,000 Mcg/15 Ml Liquid, 1,000 MCG PO DAILY, (Reported) Entered as Reported by: ROBYN JIMÉNEZ on 03/21/18 0708 Last Action: Held Fluticasone Propionate (Flonase Allergy Relief) 9.9 Ml [place].susp, 1 SPRAY NSEACH DAILY, (Reported) Entered as Reported by: SAM CARROLL on 03/19/18 1308 Last Action: Held Hydrocodone Bit/Acetaminophen (Lortab 5 Mg Tablet) 1 Tab Tab, 1 TAB PO Q6H PRN for PAIN-MODERATE Prescribed by: AGUSTIN DOMINGUEZ on 03/21/18 1110 Last Action: Held Melatonin/Pyridoxine HCl (B6) (Melatonin 3 mg Tablet) 1 Each Tablet, 3 MG PO HS, (Reported) Entered as Reported by: SAM CARROLL on 03/19/18 1308 Last Action: Held Naproxen (Naproxen) 500 Mg Tablet, 500 MG PO BID, (Reported) Entered as Reported by: SAM CARROLL on 11/03/15 0910 Last Action: Held Omeprazole (Omeprazole) 20 Mg Tablet.dr, 20 MG PO BID, (Reported) Entered as Reported by: SAM CARROLL on 11/03/15 0845 Last Action: Held Oxybutynin Chloride (Oxybutynin Chloride ER) 5 Mg Tab.er.24, 10 MG PO HS, (Reported) Entered as Reported by: SAM CARROLL on 11/03/15 0845 Last Action: Held Tamsulosin HCl (Flomax) 0.4 Mg Cap, 0.4 MG PO HS, (Reported) Entered as Reported by: SAM CARROLL on 11/03/15 0910 Last Action: Held Past Svtkwaa-Ultuni-Hmbero Hx Patient Social History Marrital Status: Number of Children: 0 Number of living children: 0 Living Status: LIVES ALONE Employed/Student: retired Tobacco Use?: No Smoking Status: Former Smoker Use of E-Cig and/or Vaping dev: No Substance use?: No Alcohol Use?: No Pt feels they are or have been: Unable to obtain Immunizations Up To Date Date of Influenza Vaccine: Jan 20, 2018 Tetanus Booster (TDap): Unknown Date of Pneumonia Vaccine: Mar 18, 2014 Seasonal Allergies Seasonal Allergies: No Current Status Advance Directives: Yes Advance Directive Location: Family to bring in copy Communicates: Verbally Primary Language: Sierra Leonean Preferred Spoken Language: [place] Leonean Is interpretation needed?: No Sensory deficits: Hearing impairment Additional sensory deficits: HEARING AIDES Past Medical History Surgeries: CABG, Coronary Stent, Gallbladder Sleep Apnea Currently Using CPAP: No Currently Using BIPAP: No Atrial Fibrillation, Coronary Artery Disease Stroke Sexually Transmitted Disease: No HIV/AIDS: No Benign Prostatic Hyperpl, Prostate Problems Chronic Constipation, Irritable Bowel Arthritis, Chronic Back Pain Are Your Blood Sugars Over 250: No Loss of Vision: Denies Hearing Impairment: Hard of Hearing Anxiety, Depression Blood Disorders: No WHEN PT WAS IN THE - HEAVY ALCOHOLIC - QUIT OVER 20 YEARS AGO, HAD HX OF VIOLENT BEHAVIOR WHEN DRUNK, CANNOT TAKE MORPHINE DUE TO VIOLENT TENDENCIES WHEN ON MORPHINE, OTHER NARCOTICS ARE OKAY TO BE TAKEN Family Medical History Reviewed and Corrections made Heart Disease, Hypertension Review of Systems Constitutional: malaise, weakness, weight loss (LOSS OF OVER 20# IN THE PAST TWO YEARS) EENTM: tearing, other (EAR DISCHARGE) Respiratory: No cough, No dyspnea on exertion, No short of breath Cardiovascular: vascular heart diseas Gastrointestinal: constipation (CHRONIC), loss of appetite Genitourinary: frequency (URGE INCONTINENCE) Musculoskeletal: back pain, joint pain (BILATERAL SHOULDERS), muscle weakness (DIFFUSELY) Skin: other (BRUISING AND ABRASIONS ON LEGS) Psychiatric/Neurological: Anxiety, Depressed, Weakness All Other Systems Reviewed Negative Unless Noted: Yes Physical Exam Vital Signs Vital Signs - First Documented 03/31/21 11:01 Pulse 92 Resp 11 B/P (MAP) 180/94 (122) Pulse Ox 94 O2 Delivery Room Air Capillary Refill : Less Than 3 Seconds Height, Weight, BMI Height: 6'0.00" Weight: 136lbs. 0.0oz. [id number]; 18.00 BMI Method:Stated General Appearance: Cachetic, Moderate Distress (SONOROUS BREATHING) HEENT: Other (DISCHARGE FROM BILATERAL EYES, PINPOINT PUPILS) Neck: Limited Range of Motion (RESISTANCE TO EXAM) Respiratory: Chest Non Tender, Decreased Breath Sounds (POOR EFFORT, LOUD AIRWAY NOISE) Cardiovascular: Regular Rate, Rhythm, Systolic Murmur Gastrointestinal: Non Tender, Other (SCAPHOID ABDOMEN) Rectal: Deferred Extremity: Slow Capillary Refill, Other (BRUISING AND ABRASIONS ON DORSUM OF FEET, CLAW TOES) Neurologic/Psychiatric: Motor Weakness, Other (AROUSES TO VOICE, TREMORS AND JERKING NOTED INTERMITTENTLY) Skin: Ecchymosis Assessment/Plan Assessment and Plan RHABDOMYOLYSIS COMFORT CARE IN HOSPITAL OPIOID OVERDOSE UNKNOWN IF INTENTIONAL CHRONIC PAIN SYNDROME CHRONIC CORONARY ARTERY DISEASE SEVERE DEGENERATIVE OSTEOARTHRITIS OF SHOULDERS, BACK, KNEES ADVANCED AGE UNCERTAIN IF THIS WAS AN INTENTIONAL OVERDOSE OF IF THE PT HAD TAKEN HIS USUAL DOSE OF PAIN MEDICATION FOR COMFORT FROM HIS SEVERE AND CHRONIC PAIN. AFTER A DISCUSSION WITH THE PT'S SISTER'S-IN-LAW, KORTNEY, WE HAVE DECIDED UPON COMFORT CARE IN THE HOSPITAL. THIS INCLUDES FENTANYL FOR PAIN CONTROL, WILL START A BIOGEOGRAPHER, ATIVAN FOR AGITATION AND AIR HUNGER, AND SIMPLY CONTINUING TO SUPPORT DON HE MAKES TRANSITION THROUGH THIS PROCESS. HE IS ANTICIPATED TO PASS AWAY, BUT MAY INSTEAD HAVE STABILIZATION AND RECOVERY AND AT THAT POINT, WE WOULD HAVE TO DECIDE ON PLACEMENT FOR HIM. RHABDOMYOLYSIS - PT GIVEN FLUID IN THE ER, WE WILL CONTINUE WITH SUPPORTIVE CARE OPIOID OVERDOSE UNKNOWN IF INTENTIONAL - WITH HISTORY OF CHRONIC PAIN SYNDROME - WILL CONTINUE WITH PAIN MEDICATION IV FOR CONTROL OF SYMPTOMS OF CHRONIC PAIN. - PT'S FAMILY AWARE AND IN AGREEMENT WITH PLAN. CHRONIC CORONARY ARTERY DISEASE SEVERE DEGENERATIVE OSTEOARTHRITIS OF SHOULDERS, BACK, KNEES ADVANCED AGE Admission Diagnosis RHABDOMYOLYSIS OPIOID OVERDOSE UNKNOWN IF INTENTIONAL CHRONIC PAIN SYNDROME CHRONIC CORONARY ARTERY DISEASE SEVERE DEGENERATIVE OSTEOARTHRITIS OF SHOULDERS, BACK, KNEES ADVANCED AGE Admission Status: Inpatient Order (span 2 midnights) Reason for Inpatient Admission: INPT ADMISSION FOR COMFORT CARE - WILL REQUIRE 48 - 72 HOURS IN THE HOSPITAL. DAINA MYLES MD Mar 31, 2021 15:04
[2021-03-31] MEDS: fentaNYL INJ 1,000 MCG in NS (IVPB) 80 ML IV SCH (16:00)
[2021-03-31] MEDS: NS IV 1000 ML 1,000 ML IV SCH (16:02)
[2021-03-31] MEDS: SALIVA STIMULANT MOUTH SPRAY (BIOTENE) 1.5 OZ MM PRN (16:04)
[2021-03-31] MEDS: LORazepam INJ 2 MG/ML (ATIVAN) VIAL IVP PRN ×2 (20:25→22:24)
[2021-03-31] MEDS: GLYCOPYRROLATE 0.2 MG/ML (ROBINUL) 2 ML VIAL IV PRN (22:25)
[2021-04-01] MEDS: NS IV 1000 ML 1,000 ML IV SCH (06:11)
[2021-04-01] MEDS: SALIVA STIMULANT MOUTH SPRAY (BIOTENE) 1.5 OZ MM PRN (08:47)
[2021-04-01] MEDS: LORazepam INJ 2 MG/ML (ATIVAN) VIAL IVP PRN ×7 (08:54→23:17)
--- NOTE | 2021-04-01 10:23 | Progress Note ---
Subjective Subjective Date Seen by Provider: Apr 01, 2021 Time Seen by Provider: 10:22 PT OBTUNDED - SISTER'S-IN-LAW ARE IN THE ROOM. SANJUANITA STAYED OVERNIGHT, REPORTS THAT HE WAS RESTLESS MOST OF THE NIGHT, HAVING MORE RESPIRATORY DISTRESS, SHE HAD STAFF GIVE HIM MEDICATION FOR COMFORT MULTIPLE TIMES OVERNIGHT. PT HAS BEEN NON-COMMUNICATIVE SINCE ADMISSION. Review of Systems ROS Unable to Obtain: UNABLE TO OBTAIN, PT OBTUNDED Neurological: Other (TONIC ACTIVITY, JERKING, MOVING ARMS ABOUT 15 - 30 MINUTES AFTER EACH BOLUS DOSE OF FENTANYL, FAMILY THINKS HE IS IN DISTRESS WITH PAIN) All Other Systems Reviewed All Other Systems Reviewed: Yes Objective Exam Vital Signs Vital Signs Date Time Temp Pulse Resp B/P (MAP) Pulse Ox O2 Delivery O2 Flow Rate FiO2 03/31/21 15:00 Room Air 03/31/21 14:58 81 17 133/81 94 Room Air 03/31/21 11:01 92 11 180/94 (122) 94 Room Air I & O 04/01/21 07:00 Intake Total 1000 ml Output Total 1000 ml Balance 0 ml General Appearance: Cachetic, Mild Distress Eyes: Bilateral Eye Normal Inspection, Bilateral Eye PERRL, Bilateral Eye EOMI HEENT: Other (DISCHARGE FROM BILATERAL EYES, PINPOINT PUPILS) Neck: Limited Range of Motion (RESISTANCE TO EXAM) Respiratory: Chest Non Tender, Decreased Breath Sounds (POOR EFFORT, LOUD AIRWAY NOISE) Cardiovascular: Regular Rate, Rhythm, Systolic Murmur Gastrointestinal: Non Tender, Other (SCAPHOID ABDOMEN) Rectal: Deferred Extremity: Slow Capillary Refill, Other (BRUISING AND ABRASIONS ON DORSUM OF FEET, CLAW TOES) Neurologic/Psychiatric: Motor Weakness, Other (AROUSES TO VOICE, TREMORS AND JERKING NOTED INTERMITTENTLY) Skin: Ecchymosis Results Lab Laboratory Tests 03/31/21 11:05: White Blood Count 12.9H, Red Blood Count 3.99L, Hemoglobin 12.1L, Hematocrit 37L , Mean Corpuscular Volume 93, Mean Corpuscular Hemoglobin 30, Mean Corpuscular Hemoglobin Concent 33, Red Cell Distribution Width 15.4H, Platelet Count 167, Mean Platelet Volume 10.2, Immature Granulocyte % (Auto) 1, Neutrophils (%) (Auto) 75, Lymphocytes (%) (Auto) 15, Monocytes (%) (Auto) 9, Eosinophils (%) (Auto) 0, Basophils (%) (Auto) 0, Neutrophils # (Auto) 9.6H, Lymphocytes # (Auto) 2.0, Monocytes # (Auto) 1.2H, Eosinophils # (Auto) 0.0, Basophils # (Auto) 0.0, Immature Granulocyte # (Auto) 0.1, Prothrombin Time 13.7, INR Comment 1.0, Activated Partial Thromboplast Time 30, Sodium Level 142, Potassium Level 3.8, Chloride Level 107, Carbon Dioxide Level 22, Anion Gap 13, Blood Urea Nitrogen 19H, Creatinine 1.59H, Estimat Glomerular Filtration Rate 41, BUN/Creatinine Ratio 12, Glucose Level 133H, Calcium Level 9.7, Corrected Calcium 9.7, Magnesium Level 2.1, Total Bilirubin 1.0, Aspartate Amino Transf (AST/SGOT) 59H, Alanine Aminotransferase (ALT/SGPT) 31, Alkaline Phosphatase 46, Total Creatine Kinase 2145H, Myoglobin 3525.2H, Troponin I 0.159H, Total Protein 6.5, Albumin 4.0, Salicylates Level < 5.0L, Acetaminophen Level < 10L, Serum Alcohol < 10 03/31/21 11:23: Urine Color YELLOW, Urine Clarity CLEAR, Urine pH 6.0, Urine Specific [place] 1.025H, Urine Protein TRACEH, Urine Glucose (UA) NEGATIVE, Urine Ketones NEGATIVE, Urine Nitrite NEGATIVE, Urine Bilirubin NEGATIVE, Urine Urobilinogen 0.2, Urine Leukocyte Esterase NEGATIVE, Urine RBC (Auto) 1+H, Urine RBC RARE, Urine WBC 0-2, Urine Squamous Epithelial Cells 0-2, Urine Crystals NONE, Urine Bacteria NEGATIVE, Urine Casts NONE, Urine Mucus NEGATIVE, Urine Culture Indicated NO, Urine Opiates Screen POSITIVEH, Urine Oxycodone Screen POSITIVEH, Urine Methadone Screen NEGATIVE, Urine Propoxyphene Screen NEGATIVE, Urine Barbiturates Screen NEGATIVE, Ur Tricyclic Antidepressants Screen POSITIVEH, Urine Phencyclidine Screen NEGATIVE, Urine Amphetamines Screen NEGATIVE, Urine Methamphetamines Screen NEGATIVE, Urine Benzodiazepines Screen NEGATIVE, Urine Cocaine Screen NEGATIVE, Urine Cannabinoids Screen NEGATIVE 03/31/21 11:28: Lactic Acid Level 1.30 Microbiology 03/31/21 Urine Culture - Preliminary, Resulted Probable E.coli Assessment/Plan Assessment/Plan Admission Dx RHABDOMYOLYSIS OPIOID OVERDOSE UNKNOWN IF INTENTIONAL CHRONIC PAIN SYNDROME CHRONIC CORONARY ARTERY DISEASE SEVERE DEGENERATIVE OSTEOARTHRITIS OF SHOULDERS, BACK, KNEES ADVANCED AGE Assessment and Plan RHABDOMYOLYSIS COMFORT CARE IN HOSPITAL OPIOID OVERDOSE UNKNOWN IF INTENTIONAL CHRONIC PAIN SYNDROME CHRONIC CORONARY ARTERY DISEASE SEVERE DEGENERATIVE OSTEOARTHRITIS OF SHOULDERS, BACK, KNEES ADVANCED AGE UNCERTAIN IF THIS WAS AN INTENTIONAL OVERDOSE OR IF THE PT HAD TAKEN HIS USUAL DOSE OF PAIN MEDICATION FOR COMFORT FROM HIS SEVERE AND CHRONIC PAIN. AFTER A DISCUSSION WITH THE PT'S SISTER'S-IN-LAW, [place]IDA AND SANJUANITA, WE HAVE DECIDED UPON COMFORT CARE IN THE HOSPITAL. DOSE OF FENTANYL INCREASED TODAY FOR MORE COMFORT SINCE THE MEDICATION IS WEARING OFF AFTER 15 - 30 MINUTES REQUIRING FREQUENT BOLUS DOSES RHABDOMYOLYSIS - PT GIVEN FLUID IN THE ER, WE WILL CONTINUE WITH SUPPORTIVE CARE OPIOID OVERDOSE UNKNOWN IF INTENTIONAL - WITH HISTORY OF CHRONIC PAIN SYNDROME - WILL CONTINUE WITH PAIN MEDICATION IV FOR CONTROL OF SYMPTOMS OF CHRONIC PAIN. - PT'S FAMILY AWARE AND IN AGREEMENT WITH PLAN. CHRONIC CORONARY ARTERY DISEASE SEVERE DEGENERATIVE OSTEOARTHRITIS OF SHOULDERS, BACK, KNEES ADVANCED AGE Admission Dx RHABDOMYOLYSIS OPIOID OVERDOSE UNKNOWN IF INTENTIONAL CHRONIC PAIN SYNDROME CHRONIC CORONARY ARTERY DISEASE SEVERE DEGENERATIVE OSTEOARTHRITIS OF SHOULDERS, BACK, KNEES ADVANCED AGE Clinical Quality Measures Admission Status Admission Dx RHABDOMYOLYSIS OPIOID OVERDOSE UNKNOWN IF INTENTIONAL CHRONIC PAIN SYNDROME CHRONIC CORONARY ARTERY DISEASE SEVERE DEGENERATIVE OSTEOARTHRITIS OF SHOULDERS, BACK, KNEES ADVANCED AGE DAINA MYLES MD Apr 01, 2021 10:22
[2021-04-01] MEDS: fentaNYL INJ 1,000 MCG in NS (IVPB) 80 ML IV SCH (18:01)
[2021-04-02] MEDS: LORazepam INJ 2 MG/ML (ATIVAN) VIAL IVP PRN ×4 (02:04→08:07)
[2021-04-02] MEDS: GLYCOPYRROLATE 0.2 MG/ML (ROBINUL) 2 ML VIAL IV PRN ×2 (04:05→10:16)
--- NOTE | 2021-04-02 09:40 | Progress Note ---
Subjective Subjective Date Seen by Provider: Apr 02, 2021 Time Seen by Provider: 10:30 PT OBTUNDED - SISTER'S-IN-LAW ARE IN THE ROOM. SANJUANITA STAYED OVERNIGHT, REPORTS THAT HE WAS RESTLESS EARLY THIS MORNING AND MUCH BETTER AFTER GETTING THE HIGHER DOSE OF ATIVAN HIS RN, RUDDY REPORTS THAT HE IS HAVING MORE RESPIRATORY DISTRESS, MORE MUCOUS OUTPUT, BETTER WITH GLYCOPYRROLATE Review of Systems ROS Unable to Obtain: UNABLE TO OBTAIN, PT OBTUNDED Neurological: Other (TONIC ACTIVITY, JERKING, MOVING ARMS ABOUT 15 - 30 MINUTES AFTER EACH BOLUS DOSE OF FENTANYL, FAMILY THINKS HE IS IN DISTRESS WITH PAIN) All Other Systems Reviewed All Other Systems Reviewed: Yes Objective Exam Vital Signs l I & O 04/02/21 07:00 Intake Total 0 ml Output Total 425 ml Balance -425 ml General Appearance: Cachetic, Mild Distress Eyes: Bilateral Eye Normal Inspection, Bilateral Eye PERRL, Bilateral Eye EOMI HEENT: Other (DISCHARGE FROM BILATERAL EYES, PINPOINT PUPILS) Respiratory: Chest Non Tender, Other (SONOROUS BREATHING) Cardiovascular: Regular Rate, Rhythm, Systolic Murmur Gastrointestinal: Non Tender, Other (SCAPHOID ABDOMEN) Rectal: Deferred Extremity: Slow Capillary Refill, Other (BRUISING AND ABRASIONS ON DORSUM OF FEET, CLAW TOES) Neurologic/Psychiatric: Motor Weakness, Other (AROUSES TO VOICE, TREMORS AND JERKING NOTED INTERMITTENTLY) Skin: Ecchymosis Results Lab Microbiology 03/31/21 Blood Culture - Preliminary, Resulted No growth 03/31/21 Urine Culture - Preliminary, Resulted Probable E.coli Assessment/Plan Assessment/Plan Admission Dx RHABDOMYOLYSIS OPIOID OVERDOSE UNKNOWN IF INTENTIONAL CHRONIC PAIN SYNDROME CHRONIC CORONARY ARTERY DISEASE SEVERE DEGENERATIVE OSTEOARTHRITIS OF SHOULDERS, BACK, KNEES ADVANCED AGE Assessment and Plan RHABDOMYOLYSIS COMFORT CARE IN HOSPITAL OPIOID OVERDOSE UNKNOWN IF INTENTIONAL CHRONIC PAIN SYNDROME CHRONIC CORONARY ARTERY DISEASE SEVERE DEGENERATIVE OSTEOARTHRITIS OF SHOULDERS, BACK, KNEES ADVANCED AGE UNCERTAIN IF THIS WAS AN INTENTIONAL OVERDOSE OR IF THE PT HAD TAKEN HIS USUAL DOSE OF PAIN MEDICATION FOR COMFORT FROM HIS SEVERE AND CHRONIC PAIN. AFTER A DISCUSSION WITH THE PT'S SISTER'S-IN-LAW, [place]IDA AND SANJUANITA, WE HAVE DECIDED UPON COMFORT CARE IN THE HOSPITAL. DOSE OF FENTANYL INCREASED TODAY FOR MORE COMFORT SINCE THE MEDICATION IS WEARING OFF AFTER 15 - 30 MINUTES REQUIRING FREQUENT BOLUS DOSES RHABDOMYOLYSIS - PT GIVEN FLUID IN THE ER, WE WILL CONTINUE WITH SUPPORTIVE CARE OPIOID OVERDOSE UNKNOWN IF INTENTIONAL - WITH HISTORY OF CHRONIC PAIN SYNDROME - WILL CONTINUE WITH PAIN MEDICATION IV FOR CONTROL OF SYMPTOMS OF CHRONIC PAIN. - PT'S FAMILY AWARE AND IN AGREEMENT WITH PLAN. CHRONIC CORONARY ARTERY DISEASE SEVERE DEGENERATIVE OSTEOARTHRITIS OF SHOULDERS, BACK, KNEES ADVANCED AGE Admission Dx RHABDOMYOLYSIS OPIOID OVERDOSE UNKNOWN IF INTENTIONAL CHRONIC PAIN SYNDROME CHRONIC CORONARY ARTERY DISEASE SEVERE DEGENERATIVE OSTEOARTHRITIS OF SHOULDERS, BACK, KNEES ADVANCED AGE Clinical Quality Measures Admission Status Admission Dx RHABDOMYOLYSIS OPIOID OVERDOSE UNKNOWN IF INTENTIONAL CHRONIC PAIN SYNDROME CHRONIC CORONARY ARTERY DISEASE SEVERE DEGENERATIVE OSTEOARTHRITIS OF SHOULDERS, BACK, KNEES ADVANCED AGE DAINA MYLES MD Apr 02, 2021 09:40
[2021-04-02] MEDS ORDERED: LORazepam INJ 2 MG/ML (ATIVAN) VIAL IVP PRN (10:30)
--- NOTE | 2021-04-02 12:50 | Discharge Summary ---
Discharge Summary Date of Admission Mar 31, 2021 at 13:24 Date of Discharge 04/02/2021 Discharge Date: Apr 02, 2021 Discharge Time: 12:30 Admission Diagnosis RHABDOMYOLYSIS COMFORT CARE IN HOSPITAL OPIOID OVERDOSE UNKNOWN IF INTENTIONAL CHRONIC PAIN SYNDROME CHRONIC CORONARY ARTERY DISEASE SEVERE DEGENERATIVE OSTEOARTHRITIS OF SHOULDERS, BACK, KNEES ADVANCED AGE Comfort Measures/ End of Life Care: Comfort Measures Advance Care discuss with: family member (s) (SISTER'S IN LAW, SANJUANITA AND IRAIDA ZAPATA) Plan: initiate discussion, clarifying prognosis, identified end-of-life goals, developed treatment plan Cardiopulmonary Arrest: Cardiorespiratory Arrest Date of : Apr 02, 2021 Time of : 12:30 Discharge Diagnosis CARDIORESPIRATORY ARREST RHABDOMYOLYSIS COMFORT CARE IN HOSPITAL OPIOID OVERDOSE UNKNOWN IF INTENTIONAL CHRONIC PAIN SYNDROME CHRONIC CORONARY ARTERY DISEASE SEVERE DEGENERATIVE OSTEOARTHRITIS OF SHOULDERS, BACK, KNEES ADVANCED AGE DAINA MYLES MD Apr 02, 2021 12:50
== END 2021-04-02 14:55 | disposition expired | DRG 951 ==
LOC: EDUNIT# 11:00 → ER 11:01 → CSD 13:24 → 4TH 14:55
PROVIDERS: ADMIT Family Medicine; ATTEND Family Medicine
DX: Z51.5 Encounter for palliative care (principal); M62.82 Rhabdomyolysis; T40.601A Poisoning by unspecified narcotics, accidental (unintentional), initial encounter; R40.4 Transient alteration of awareness; N40.1 Benign prostatic hyperplasia with lower urinary tract symptoms; N39.41 Urge incontinence; I46.9 Cardiac arrest, cause unspecified; F32.A Depression, unspecified; Z66 Do not resuscitate; I25.10 Atherosclerotic heart disease of native coronary artery without angina pectoris; I48.91 Unspecified atrial fibrillation; F41.9 Anxiety disorder, unspecified; G89.4 Chronic pain syndrome; H91.93 Unspecified hearing loss, bilateral; M19.012 Primary osteoarthritis, left shoulder; M19.011 Primary osteoarthritis, right shoulder; M47.9 Spondylosis, unspecified; M17.0 Bilateral primary osteoarthritis of knee; Z97.4 Presence of external hearing-aid; Z86.73 Personal history of transient ischemic attack (TIA), and cerebral infarction without residual deficits; Z95.1 Presence of aortocoronary bypass graft; Z95.5 Presence of coronary angioplasty implant and graft; Z87.891 Personal history of nicotine dependence; Z79.82 Long term (current) use of aspirin; Z88.5 Allergy status to narcotic agent; Z88.0 Allergy status to penicillin; Z88.8 Allergy status to other drugs, medicaments and biological substances
CPT/HCPCS: 36415; 51702; 70450; 71045; 72125; 72170; 80053; 80306; 80320; 80329; 81000; 82550; 83605; 83735; 83874; 84484; 85025; 85610; 85730; 87040; 87077; 87088; 87186; 93005; 93041; 96361; 96374; 96375; 96376